=== PATIENT | male | born 1990 | race Caucasian/White ===

== ENCOUNTER → 2016-11-27 | Outpatient (CLI) | payer OTHER ==
[2016-11-27 15:12] LABS: Basophils % (A) 0 %; CH 31.6; CHCM 33.1; Eosinophils # (A) 0.3 k/uL (0-0.7); Eosinophils % (A) 3 %; HCT 44.9 % (39.0-53.0); HDW 2.84; HGB 14.5 gm/dL (13.0-17.5); Luc # (Auto) 0.21; Luc % (Auto) 2; Lymphocytes # (A) 2.2 k/uL (1.0-4.8); Lymphocytes % (A) 22 %; MCH 31.1 pg (25.0-35.0); MCHC 32.3 g/dL (31.0-37.0); MCV 96.2 fL (80.0-100.0); Mean Platelet Volume 9.6; Monocytes # (A) 0.4 k/uL (0-1.0); Monocytes % (A) 4 %; Neutrophils % (A) 69 %; RBC 4.67 m/uL (4.30-5.90); RDW 13.3 % (11.5-15.5); WBC (Perox) 9.74
[2016-11-27 15:27] LABS: Bilirubin, Delta 0.3 mg/dL (0.0-0.2); Total Bilirubin 0.4 mg/dL (0.2-1.3); Total Protein 7.3 g/dL (6.3-8.2)
[2016-11-30 16:16] LABS: HCV Qualitative Result DETECTED (Not detected)
== END | disposition home or self-care (01) ==
LOC: LABWHC1 14:39
PROVIDERS: ATTEND Physician Assistant
DX: B18.2 Chronic viral hepatitis C (principal)
CPT/HCPCS: 36415; 80076; 85025; 87522; 87902

== ENCOUNTER 2016-12-09 13:10 | Emergency (ER) | payer OTHER ==
--- NOTE | 2016-12-09 13:38 | ED ---
General Adult HPI - General Chief complaint: Psychiatric Symptoms Stated complaint: SUICIDAL, OVERDOSE Time Seen by Provider: 12/09/16 13:25 Source: patient, RN notes reviewed Mode of arrival: EMS Limitations: no limitations - History of Present Illness Initial comments: This is a 26-year-old male who states he has a past medical history of autism and ADHD depression and possibly schizophrenia. Patient states his mother told him he was a real pain in the neck today and that upset him so he started to cut himself because he states when he feels a lot of pain it's snaps a moderately depressed feeling. Patient states took a razor blade just rubbed on his arm he was not trying to kill himself and he is not suicidal at all. Patient states she's also not homicidal. 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 Patient states he has not drank anything today. Patient did state he took his Zyprexa now instead of this evening because he was feeling so upset he thought it might help him. Patient states he was not an attempt to kill himself. She denies any headache patient denies numbness weakness. Patient states he does have superficial abrasion to the left arm but he has had a tetanus shot recently. Patient denies any chest pain difficulty breathing or shortness of breath per patient denies any recent fever chills or cough. Patient denies abdominal pain. - Related Data Home Medications Medication Instructions Recorded Confirmed Amitriptyline HCl [Elavil] 10 mg PO HS 12/09/16 12/09/16 Gabapentin [Neurontin] 400 mg PO TID 12/09/16 12/09/16 OLANZapine [ZyPREXA] 15 mg PO DAILY 12/09/16 12/09/16 buPROPion HCL [Wellbutrin XL] 150 mg PO DAILY 12/09/16 12/09/16 cloNIDine HCL 0.3 mg PO TID 12/09/16 12/09/16 hydrOXYzine PAMOATE [Vistaril] 50 mg PO TID 12/09/16 12/09/16 Allergies Allergy/AdvReac Type Severity Reaction Status Date / Time sulfamethoxazole Allergy Itching Verified 12/09/16 13:38 [From Bactrim] trimethoprim [From Bactrim] Allergy Itching Verified 12/09/16 13:38 fluvoxamine maleate AdvReac Nausea & Verified 12/09/16 13:38 [From Luvox] Vomiting Review of Systems ROS Statement: Those systems with pertinent positive or pertinent negative responses have been documented in the HPI. ROS Other: All systems not noted in ROS Statement are negative. Past Medical History Additional Past Medical History / Comment(s): Schizophrenia, PTSD, generalized anxiety disorder, major depressive disorder with psychosis, ADHD, cutting, hepatitis C History of Any Multi-Drug Resistant Organisms: None Reported Past Surgical History: No Surgical Hx Reported Past Anesthesia/Blood Transfusion Reactions: No Reported Reaction Past Psychological History: ADD/ADHD, Anxiety, Depression, PTSD, Schizophrenia Smoking Status: Current every day smoker Past Alcohol Use History: None Reported Additional Past Alcohol Use History / Comment(s): Patient is a smoker one pack per day for the past 5 years. He states he uses marijuana occasionally. He also uses Vicodin and Percocet which he buys off the street. He denies any IV drug use. He denies history of hepatitis. Past Drug Use History: Marijuana - Past Family History Father Family Medical History: No Reported History Mother Family Medical History: No Reported History Additional Family Medical History / Comment(s): Patient is single and does not have any children. General Exam - General Exam Comments Initial Comments: GENERAL: Patient is well-developed and well-nourished. Patient is nontoxic and well- hydrated and is in no acute distress. ENT: Neck is soft and supple. No significant lymphadenopathy is noted. Oropharynx is clear. Moist mucous membranes. Neck has full range of motion without eliciting any pain. EYES: The sclera were anicteric and conjunctiva were pink and moist. Extraocular movements were intact and pupils were equal round and reactive to light. Eyelids were unremarkable. PULMONARY: Unlabored respirations. Good breath sounds bilaterally. No audible rales rhonchi or wheezing was noted. CARDIOVASCULAR: There is a regular rate and rhythm without any murmurs gallops or rubs. ABDOMEN: Soft and nontender with normal bowel sounds. SKIN: Patient superficial abrasions to the left forearm. NEUROLOGIC: Patient is alert and oriented x3. Cranial nerves II through XII are grossly intact. Motor and sensory are also intact. Normal speech, volume and content. MUSCULOSKELETAL: Normal extremities with adequate strength and full range of motion. No lower extremity swelling or edema. No calf tenderness. LYMPHATICS: No significant lymphadenopathy is noted PSYCHIATRIC: Patient denies any suicidal homicidal ideations. Patient does seem mildly anxious and remains a little bit upset about this morning events Limitations: no limitations Course Vital Signs 12/09/16 13:24 Temperature 97.4 F L Pulse Rate 78 Respiratory 20 Rate Blood Pressure 130/90 O2 Sat by Pulse 97 Oximetry Medical Decision Making - Medical Decision Making [facility] came and saw the patient didn't think he needs to be admitted. I went back and spoke with the patient he continued to state he was ago and hurt himself and had no one attention of hurting himself. He stated he could be safe if he went home. - Lab Data Lab Results 12/09/16 Range/Units 13:48 Urine Opiates Screen Detected H (NotDetected) Ur Oxycodone Screen Not Detected (NotDetected) Urine Methadone Screen Not Detected (NotDetected) Ur Propoxyphene Screen Not Detected (NotDetected) Ur Barbiturates Screen Not Detected (NotDetected) U Tricyclic Antidepress Not Detected (NotDetected) Ur Phencyclidine Scrn Not Detected (NotDetected) Ur Amphetamines Screen Not Detected (NotDetected) U Methamphetamines Scrn Not Detected (NotDetected) U Benzodiazepines Scrn Detected H (NotDetected) Urine Cocaine Screen Not Detected (NotDetected) U Marijuana (THC) Screen Detected H (NotDetected) Disposition Clinical Impression: Adjustment reaction Disposition: HOME SELF-CARE Instructions: Mood Disorders (ED) Additional Instructions: Patient should follow-up at [facility] or his counselor as soon as possible Time of Disposition: 14:57
[2016-12-09 15:19] VITALS: BP 113/57; PULSE 90; RESP 18; TEMP 97.9
== END 2016-12-09 15:18 | disposition home or self-care (01) ==
LOC: EC 13:10
DX: F43.20 Adjustment disorder, unspecified (principal); S40.812A Abrasion of left upper arm, initial encounter; F32.9 Major depressive disorder, single episode, unspecified; F20.9 Schizophrenia, unspecified; F90.9 Attention-deficit hyperactivity disorder, unspecified type; F41.9 Anxiety disorder, unspecified; F17.200 Nicotine dependence, unspecified, uncomplicated; F12.90 Cannabis use, unspecified, uncomplicated; X78.1XXA Intentional self-harm by knife, initial encounter; Z88.2 Allergy status to sulfonamides
CPT/HCPCS: 80306; 82075; 99283

== ENCOUNTER → 2017-01-28 | Outpatient (CLI) | payer OTHER ==
[2017-01-28 17:36] LABS: Bilirubin, Delta 0.3 mg/dL (0.0-0.2); Total Bilirubin 0.8 mg/dL (0.2-1.3); Total Protein 7.9 g/dL (6.3-8.2)
[2017-01-30 07:27] LABS: Hepatits C Virus RNA, Quant 678 IU/mL (<12); LOG HCV IU/mL 2.83 (<1.08)
== END | disposition home or self-care (01) ==
LOC: LABWHC1 17:04
PROVIDERS: ATTEND Physician Assistant
DX: B18.2 Chronic viral hepatitis C (principal)
CPT/HCPCS: 36415; 80076; 87522

== ENCOUNTER 2017-08-07 12:09 | Emergency (ER) | payer OTHER ==
[2017-08-07] MEDS ORDERED: HYDROcodone/APAP 5-325MG 1 EACH TAB PO STA (12:49)
[2017-08-07] MEDS ORDERED: PENICILLIN V POTASSIUM 250 MG TAB PO STA (12:49)
--- NOTE | 2017-08-07 12:50 | ED ---
ENT HPI - General Chief complaint: Dental/Oral Stated complaint: Tooth Ache Time Seen by Provider: 08/07/17 12:32 Source: patient, RN notes reviewed Mode of arrival: ambulatory Limitations: no limitations - History of Present Illness Initial comments: This a 27-year-old male presents emergency Department with complaint of dental pain. Patient states that she was pretty are broken. He states she's never had his wisdom teeth removed. Patient states he is afraid of the dentist when he has not gone. He states over this last week he's had increasing pain denies any fever, chills, headache, dizziness, neck pain, facial swelling. Patient states that he will schedule appointment on Wednesday for the dentist. - Related Data Home Medications Medication Instructions Recorded Confirmed Amitriptyline HCl [Elavil] 10 mg PO HS 12/09/16 02/19/17 Gabapentin [Neurontin] 400 mg PO TID 12/09/16 02/19/17 OLANZapine [ZyPREXA] 15 mg PO DAILY 12/09/16 02/19/17 buPROPion HCL [Wellbutrin XL] 150 mg PO DAILY 12/09/16 02/19/17 cloNIDine HCL 0.3 mg PO TID 12/09/16 02/19/17 hydrOXYzine PAMOATE [Vistaril] 50 mg PO TID 12/09/16 02/19/17 Previous Rx's Medication Instructions Recorded Ibuprofen [Motrin] 600 mg PO Q6HR PRN #20 tab 02/19/17 Penicillin V Potassium [Pen Vee K] 500 mg PO TID #40 tab 02/19/17 Hydrocodone/Acetaminophen [Fisk 1 tab PO Q6HR PRN #20 tab 08/07/17 5-325] Penicillin V Potassium [Pen Vee K] 500 mg PO QID #40 tab 08/07/17 Allergies Allergy/AdvReac Type Severity Reaction Status Date / Time sulfamethoxazole Allergy Itching Verified 08/07/17 12:24 [From Bactrim] tramadol Allergy Unknown Verified 08/07/17 12:24 trimethoprim [From Bactrim] Allergy Itching Verified 08/07/17 12:24 fluvoxamine maleate AdvReac Nausea & Verified 08/07/17 12:24 [From Luvox] Vomiting Review of Systems ROS Statement: Those systems with pertinent positive or pertinent negative responses have been documented in the HPI. ROS Other: All systems not noted in ROS Statement are negative. Past Medical History Additional Past Medical History / Comment(s): Schizophrenia, PTSD, generalized anxiety disorder, major depressive disorder with psychosis, ADHD, cutting, hepatitis C History of Any Multi-Drug Resistant Organisms: None Reported Past Surgical History: No Surgical Hx Reported Past Anesthesia/Blood Transfusion Reactions: No Reported Reaction Past Psychological History: ADD/ADHD, Anxiety, Depression, PTSD, Schizophrenia Smoking Status: Never smoker Past Alcohol Use History: None Reported Past Drug Use History: None Reported - Past Family History Father Family Medical History: No Reported History Mother Family Medical History: No Reported History Additional Family Medical History / Comment(s): Patient is single and does not have any children. General Exam Limitations: no limitations General appearance: alert, in no apparent distress Head exam: Present: atraumatic, normocephalic, normal inspection Eye exam: Present: normal appearance, PERRL, EOMI. Absent: scleral icterus, conjunctival injection, periorbital swelling ENT exam: Present: mucous membranes moist, TM's normal bilaterally, normal external ear exam. Absent: normal oropharynx (Dental fracture 1 and 16 no drainable abscess noted) Neck exam: Present: normal inspection, full ROM. Absent: tenderness, meningismus, lymphadenopathy Respiratory exam: Present: normal lung sounds bilaterally. Absent: respiratory distress, wheezes, rales, rhonchi, stridor Cardiovascular Exam: Present: regular rate, normal rhythm, normal heart sounds. Absent: systolic murmur, diastolic murmur, rubs, gallop, clicks Course Vital Signs 08/07/17 12:18 Temperature 97.4 F L Pulse Rate 107 H Respiratory 20 Rate Blood Pressure 152/90 O2 Sat by Pulse 100 Oximetry Medical Decision Making - Medical Decision Making 27-year-old male presented for dental pain. Patient has a dental fracture. Patient is advised all) started on Pen-Vee K for possible infection and given pain medication. Return parameters were discussed. Disposition Clinical Impression: Toothache, Fracture of tooth Disposition: HOME SELF-CARE Condition: Stable Instructions: Toothache (ED) Additional Instructions: Please return to the Emergency Department if symptoms worsen or any other concerns. Prescriptions: Hydrocodone/Acetaminophen [Fisk 5-325] 1 tab PO Q6HR PRN #20 tab PRN Reason: Pain Penicillin V Potassium [Pen Vee K] 500 mg PO QID #40 tab Referrals: Aj Whitlock MD [Primary Care Provider] - 1-2 days Time of Disposition: 12:50
[2017-08-07 13:38] VITALS: BP 147/91; PULSE 102; RESP 18; TEMP 97.1
== END 2017-08-07 13:38 | disposition home or self-care (01) ==
LOC: EC 12:09
DX: S02.5XXA Fracture of tooth (traumatic), initial encounter for closed fracture (principal); F32.9 Major depressive disorder, single episode, unspecified; F20.9 Schizophrenia, unspecified; F41.1 Generalized anxiety disorder; Z86.19 Personal history of other infectious and parasitic diseases; Z88.2 Allergy status to sulfonamides; Z88.6 Allergy status to analgesic agent; Z88.8 Allergy status to other drugs, medicaments and biological substances; Z79.899 Other long term (current) drug therapy; X58.XXXA Exposure to other specified factors, initial encounter
CPT/HCPCS: 99282

== ENCOUNTER 2018-04-01 18:43 | Emergency (ER) | payer OTHER ==
--- NOTE | 2018-04-01 18:52 | ED ---
General Adult HPI - General Stated complaint: Mental Health Time Seen by Provider: 04/01/18 18:45 Source: RN notes reviewed, old records reviewed - History of Present Illness Initial comments: This is a 27-year-old male to the ER for evaluation presents today for evaluation regarding psychiatric treatment. Patient needs psychiatric evaluation secondary to deteriorating mental health - Related Data Home Medications Medication Instructions Recorded Confirmed Benztropine Mesylate [Cogentin] 2 mg PO BID 04/01/18 04/01/18 diphenhydrAMINE [Benadryl] 50 mg PO HS 04/01/18 04/01/18 fluPHENAZine DECANOATE [Prolixin 25 mg IM Q7D 04/01/18 04/01/18 Decanoate] Allergies Allergy/AdvReac Type Severity Reaction Status Date / Time sulfamethoxazole Allergy Itching Verified 04/01/18 19:18 [From Bactrim] tramadol Allergy Unknown Verified 04/01/18 19:18 trimethoprim [From Bactrim] Allergy Itching Verified 04/01/18 19:18 fluvoxamine maleate AdvReac Nausea & Verified 04/01/18 19:18 [From Luvox] Vomiting Review of Systems ROS Statement: Those systems with pertinent positive or pertinent negative responses have been documented in the HPI. ROS Other: All systems not noted in ROS Statement are negative. Past Medical History Additional Past Medical History / Comment(s): Schizophrenia, PTSD, generalized anxiety disorder, major depressive disorder with psychosis, ADHD, cutting, hepatitis C History of Any Multi-Drug Resistant Organisms: None Reported Past Surgical History: No Surgical Hx Reported Past Anesthesia/Blood Transfusion Reactions: No Reported Reaction Past Psychological History: ADD/ADHD, Anxiety, Depression, PTSD, Schizophrenia Smoking Status: Never smoker Past Alcohol Use History: None Reported Past Drug Use History: None Reported - Past Family History Father Family Medical History: No Reported History Mother Family Medical History: No Reported History Additional Family Medical History / Comment(s): Patient is single and does not have any children. General Exam General appearance: alert, in no apparent distress Head exam: Present: atraumatic, normocephalic, normal inspection Eye exam: Present: normal appearance, PERRL, EOMI. Absent: scleral icterus, conjunctival injection, periorbital swelling ENT exam: Present: normal exam, mucous membranes moist Neck exam: Present: normal inspection. Absent: tenderness, meningismus, lymphadenopathy Respiratory exam: Present: normal lung sounds bilaterally. Absent: respiratory distress, wheezes, rales, rhonchi, stridor Cardiovascular Exam: Present: regular rate, normal rhythm, normal heart sounds. Absent: systolic murmur, diastolic murmur, rubs, gallop, clicks GI/Abdominal exam: Present: soft, normal bowel sounds. Absent: distended, tenderness, guarding, rebound, rigid Extremities exam: Present: normal inspection, full ROM, normal capillary refill. Absent: tenderness, pedal edema, joint swelling, calf tenderness Back exam: Present: normal inspection Neurological exam: Present: alert, oriented X3, CN II-XII intact Psychiatric exam: Present: normal affect, normal mood Skin exam: Present: warm, dry, intact, normal color. Absent: rash Course Vital Signs 04/01/18 18:49 Temperature 98.1 F Pulse Rate 94 Respiratory 16 Rate Blood Pressure 139/79 O2 Sat by Pulse 97 Oximetry - Reevaluation(s) Reevaluation #1: 04/01/18 18:52 Medically clear for psychiatric evaluation Medical Decision Making - Medical Decision Making 27 male the ER for evaluation for psychiatric evaluation. A she was seen and evaluated with psychiatry. Patient can be discharged home - Lab Data Lab Results 04/01/18 Range/Units 19:07 Urine Opiates Screen Not Detected (NotDetected) Ur Oxycodone Screen Not Detected (NotDetected) Urine Methadone Screen Not Detected (NotDetected) Ur Propoxyphene Screen Not Detected (NotDetected) Ur Barbiturates Screen Not Detected (NotDetected) U Tricyclic Antidepress Not Detected (NotDetected) Ur Phencyclidine Scrn Not Detected (NotDetected) Ur Amphetamines Screen Not Detected (NotDetected) U Methamphetamines Scrn Not Detected (NotDetected) U Benzodiazepines Scrn Not Detected (NotDetected) Urine Cocaine Screen Not Detected (NotDetected) U Marijuana (THC) Screen Not Detected (NotDetected) Disposition Clinical Impression: Depression Disposition: HOME SELF-CARE Condition: Fair Instructions: Depression (ED) Is patient prescribed a controlled substance at d/c from ED?: No Referrals: Aj Whitlock MD [Primary Care Provider] - 1-2 days
[2018-04-01 19:45] LABS: Amphetamine Screen,Urine Not Detected (NotDetected); Barbiturate Screen,Urine Not Detected (NotDetected); Benzodiazepines Screen,Urine Not Detected (NotDetected); Cocaine Screen,Urine Not Detected (NotDetected); Methadone Screen, Urine Not Detected (NotDetected); Opiate Screen,Urine Not Detected (NotDetected); Oxycodone Screen, Urine Not Detected (NotDetected); Phencyclidine Screen,Urine Not Detected (NotDetected); Tricyclic Antidepressant,Urine Not Detected (NotDetected); Urn Cannabinoid Scrn Not Detected (NotDetected)
[2018-04-01 20:25] VITALS: BP 129/78; PULSE 80; RESP 18; TEMP 97.5
== END 2018-04-01 20:25 | disposition home or self-care (01) ==
LOC: EC 18:43
DX: F32.9 Major depressive disorder, single episode, unspecified (principal); F20.9 Schizophrenia, unspecified; F43.10 Post-traumatic stress disorder, unspecified; F41.9 Anxiety disorder, unspecified; F90.9 Attention-deficit hyperactivity disorder, unspecified type; Z86.19 Personal history of other infectious and parasitic diseases; Z79.899 Other long term (current) drug therapy; Z88.2 Allergy status to sulfonamides; Z88.6 Allergy status to analgesic agent; Z88.8 Allergy status to other drugs, medicaments and biological substances
CPT/HCPCS: 80306; 82075; 99284

== ENCOUNTER 2018-06-21 14:34 | Emergency (ER) | payer OTHER ==
[2018-06-21 15:18] VITALS: BP 138/100; RESP 20; TEMP 98.3
[2018-06-21] MEDS ORDERED: BENZTROPINE MESYLATE 1 MG TAB PO STA (15:39)
--- NOTE | 2018-06-21 15:44 | ED ---
Recheck HPI - General Chief Complaint: Recheck/Abnormal Lab/Rx Stated Complaint: medication side effect Time Seen by Provider: 06/21/18 15:23 Source: patient, RN notes reviewed Mode of arrival: ambulatory Limitations: no limitations - History of Present Illness Initial Comments: This is a 28-year-old male who presents to the emergency department with chief complaint of medication side effect. Patient states that since March he has been on Prolixin for schizophrenia. He states that at first he was getting injections every one week and now he is getting them every 2 weeks. He states that at the time he was also started on Cogentin 2 mg daily to help with side effects of Prolixin. He states that he began having blurred vision so they weaned him down to 1 mg. At 1 mg patient was no longer having side effects. He states that one week ago he was completely weaned off. He states that over this past week the side effects of Prolixin have worsened. He reports restless legs and a "fluttery butterfly feeling" in his chest. Denies chest pain or shortness of breath. Denies fevers or chills, abdominal pain, nausea or vomiting, numbness or tingling. She is seen by Dr. Goss at [facility]. - Related Data Home Medications Medication Instructions Recorded Confirmed Benztropine Mesylate [Cogentin] 2 mg PO BID 04/01/18 04/01/18 diphenhydrAMINE [Benadryl] 50 mg PO HS 04/01/18 04/01/18 fluPHENAZine DECANOATE [Prolixin 25 mg IM Q7D 04/01/18 04/01/18 Decanoate] Previous Rx's Medication Instructions Recorded Benztropine Mesylate [Cogentin] 1 mg PO BID #14 tablet 06/21/18 Allergies Allergy/AdvReac Type Severity Reaction Status Date / Time sulfamethoxazole Allergy Itching Verified 04/01/18 19:18 [From Bactrim] tramadol Allergy Unknown Verified 04/01/18 19:18 trimethoprim [From Bactrim] Allergy Itching Verified 04/01/18 19:18 fluvoxamine maleate AdvReac Nausea & Verified 04/01/18 19:18 [From Luvox] Vomiting Review of Systems ROS Statement: Those systems with pertinent positive or pertinent negative responses have been documented in the HPI. ROS Other: All systems not noted in ROS Statement are negative. Past Medical History Additional Past Medical History / Comment(s): Schizophrenia, PTSD, generalized anxiety disorder, major depressive disorder with psychosis, ADHD, cutting, hepatitis C History of Any Multi-Drug Resistant Organisms: None Reported Past Surgical History: No Surgical Hx Reported Past Anesthesia/Blood Transfusion Reactions: No Reported Reaction Past Psychological History: ADD/ADHD, Anxiety, Depression, PTSD, Schizophrenia Smoking Status: Current every day smoker Past Alcohol Use History: None Reported Past Drug Use History: None Reported - Past Family History Father Family Medical History: No Reported History Mother Family Medical History: No Reported History Additional Family Medical History / Comment(s): Patient is single and does not have any children. General Exam - General Exam Comments Initial Comments: General: Awake and alert, well-developed; in no apparent distress. HEENT: Head atraumatic, normocephalic. Pupils are equal, round and reactive to light. Extraocular movements intact. Oropharynx moist without erythema or exudate. Neck: Supple. Normal ROM. Cardiovascular: Regular rate and rhythm. No murmurs, rubs or gallops. Chest symmetrical. Respiratory: Lungs clear to auscultation bilaterally. No wheezes, rales or rhonchi. Normal respiratory effort with no use of accessory muscles. Musculoskeletal: Normal ROM, no tenderness bilateral upper and lower extremities. Ambulating normally. Skin: [place], warm and dry without rashes or lesions. Neurological: Alert and oriented x3. CN II-XII grossly intact. Speech is fluent and answers are appropriate. No focal neuro deficits. Psychiatric: Patient is jittery and anxious. Limitations: no limitations Course Vital Signs 06/21/18 15:13 Temperature 98.3 F Pulse Rate 90 Respiratory 20 Rate Blood Pressure 138/100 O2 Sat by Pulse 99 Oximetry Medical Decision Making - Medical Decision Making This is a 28-year-old male who presents to the emergency department with chief complaint of medication side effect. Patient was taking Cogentin to help with side effects for the Prolixin that he is on for schizophrenia. Patient has been weaned off the Cogentin one week ago. Since that time, patient complains of side effects from the Prolixin. He complains of restless legs and a jittery feeling in his chest. Denies chest pain or shortness of breath. Denies fevers or chills. Case was discussed with attending physician, Dr. Dos Santos. Recommends prescription for Cogentin until patient is able to follow-up with his psychiatrist next Wednesday. Patient will be provided with a prescription for Cogentin 1 mg BID. He is to follow up as scheduled. Vitals are stable and patient is in no acute distress. He will be discharged home at this time. He is in agreement with plan and voices understanding. All questions answered. - EKG Data EKG Comments: 15:37:39. Normal sinus rhythm. Normal ECG. Ventricular rate 86 bpm, [place] interval 142, QRS duration 94, QT/QTC 376/449 Disposition Clinical Impression: Medication side effect Disposition: HOME SELF-CARE Condition: Good Instructions: Adverse Drug Reaction (ED) Additional Instructions: As discussed, please follow-up with your psychiatrist next Wednesday as scheduled. Please take medications as prescribed. Please follow up with primary care provider within 1-2 days. Return to emergency department if symptoms should worsen or any concerns arise. Prescriptions: Benztropine Mesylate [Cogentin] 1 mg PO BID #14 tablet Is patient prescribed a controlled substance at d/c from ED?: No Referrals: Aj Whitlock MD [Primary Care Provider] - 1-2 days Time of Disposition: 15:47
[2018-06-21 15:47] VITALS: PULSE 92
== END 2018-06-21 15:52 | disposition home or self-care (01) ==
LOC: EC 14:34
DX: H53.8 Other visual disturbances (principal); T43.3X5A Adverse effect of phenothiazine antipsychotics and neuroleptics, initial encounter; G25.81 Restless legs syndrome; F20.9 Schizophrenia, unspecified; F17.200 Nicotine dependence, unspecified, uncomplicated; Z79.899 Other long term (current) drug therapy; Z88.2 Allergy status to sulfonamides; Z88.6 Allergy status to analgesic agent; Z88.8 Allergy status to other drugs, medicaments and biological substances
CPT/HCPCS: 93005; 99283

== ENCOUNTER 2018-09-13 09:10 | Emergency (ER) | payer OTHER ==
[2018-09-13 09:14] VITALS: RESP 18
--- NOTE | 2018-09-13 09:29 | ED ---
General Adult HPI - General Chief complaint: Recheck/Abnormal Lab/Rx Stated complaint: poss allergic reaction Time Seen by Provider: 09/13/18 09:20 Source: patient, RN notes reviewed, old records reviewed Mode of arrival: ambulatory Limitations: no limitations - History of Present Illness Initial comments: Patient is a 28-year-old male with significant past medical history for schizophrenia, presented to the emergency room today with a chief complaint of a possible reaction to his medications. Patient does admit that he gets a Prolixin injection every 2 weeks. Patient states that he was on Cogentin in the past. He states that he went to try to get off this medication. He states that previous and when he stops medication began having shaking and some "jitterness". Patient states that he last took Cogentin 2 weeks ago. He states that his last injection was approximately one week ago of the Prolixin. Patient states began feeling shaky last night when he was trying to sleep. He denies any other complaints or any other symptoms. He states this is consistent with symptoms that he had a the past when he stopped his Cogentin. Patient denies any recent fever, chills, shortness of breath, chest pain, back pain, abdominal pain, nausea or vomiting, numbness or tingling, headaches or visual changes, or any other complaints. - Related Data Home Medications Medication Instructions Recorded Confirmed diphenhydrAMINE [Benadryl] 50 mg PO HS 04/01/18 09/13/18 fluPHENAZine DECANOATE [Prolixin 50 mg IM Q14D 04/01/18 09/13/18 Decanoate] Desvenlafaxine [Pristiq ER] 100 mg PO DAILY 09/13/18 09/13/18 Propranolol HCl 60 mg PO DAILY 09/13/18 09/13/18 Previous Rx's Medication Instructions Recorded Benztropine Mesylate [Cogentin] 2 mg PO BID #18 tablet 09/13/18 Allergies Allergy/AdvReac Type Severity Reaction Status Date / Time sulfamethoxazole Allergy Itching Verified 09/13/18 09:36 [From Bactrim] tramadol Allergy Unknown Verified 09/13/18 09:36 trimethoprim [From Bactrim] Allergy Itching Verified 09/13/18 09:36 fluvoxamine maleate AdvReac Nausea & Verified 09/13/18 09:36 [From Luvox] Vomiting Review of Systems ROS Statement: Those systems with pertinent positive or pertinent negative responses have been documented in the HPI. ROS Other: All systems not noted in ROS Statement are negative. Past Medical History Additional Past Medical History / Comment(s): Schizophrenia, PTSD, generalized anxiety disorder, major depressive disorder with psychosis, ADHD, cutting, hepatitis C History of Any Multi-Drug Resistant Organisms: None Reported Past Surgical History: No Surgical Hx Reported Past Anesthesia/Blood Transfusion Reactions: No Reported Reaction Past Psychological History: ADD/ADHD, Anxiety, Depression, PTSD, Schizophrenia Smoking Status: Current every day smoker Past Alcohol Use History: None Reported Past Drug Use History: None Reported - Past Family History Father Family Medical History: No Reported History Mother Family Medical History: No Reported History Additional Family Medical History / Comment(s): Patient is single and does not have any children. General Exam - General Exam Comments Initial Comments: General: The patient is awake and alert, in no distress, and does not appear acutely ill. Eye: Pupils are equal, round and reactive to light. Extra-ocular movements are intact. No nystagmus. There is normal conjunctiva bilaterally. No signs of icterus. Ears, nose, mouth and throat: There are moist mucous membranes and no oral lesions. Neck: The neck is supple, there is no tenderness or JVD. Cardiovascular: There is a regular rate and rhythm. No murmur, rub or gallop is appreciated. Respiratory: Lungs are clear to auscultation, respirations are non-labored, breath sounds are equal. No wheezes, stridor, rales, or rhonchi. Musculoskeletal: Normal ROM, no tenderness. Sensation intact. Strength 5/5. Pulses equal bilaterally 2+. Neurological: A&O x 3. CN II-XII intact, There are no obvious motor or sensory deficits. Coordination appears grossly intact. Speech is normal. Skin: Skin is warm and dry and no rashes or lesions are noted. Psychiatric: Cooperative, appropriate mood & affect, normal judgment. Limitations: no limitations Course Vital Signs 09/13/18 09:11 Temperature 97.7 F Pulse Rate 116 H Respiratory 18 Rate Blood Pressure 135/80 O2 Sat by Pulse 100 Oximetry EKG Findings - EKG Comments: EKG Findings:: EKG performed at 0933: Shows sinus tachycardia 102 bpm. LA interval is 122. QRS 98 per QT/QTC 346/450. No acute ischemic changes. Medical Decision Making - Medical Decision Making Results were discussed with the patient. Patient at this time is resting comfortably. He states he does feel a little shaky. She states that this has happened to him before when he stopped his Cogentin. He states he does have an appointment next week with [facility]. Patient has no other complaints.EKG performed at shows no acute abnormalities. Patient will be given a week's prescription for his Cogentin he states he takes 2 mg twice a day. Patient advised following up return if symptoms increase worsen. States understanding and is in agreement with this plan. Disposition Clinical Impression: Tremor Disposition: HOME SELF-CARE Condition: Good Instructions: Tremors (ED) Additional Instructions: Please follow-up with community mental health as discussed and use medication as prescribed. Please return here to emergency room if any symptoms increase or worsen. Prescriptions: Benztropine Mesylate [Cogentin] 2 mg PO BID #18 tablet Is patient prescribed a controlled substance at d/c from ED?: No Referrals: Aj Whitlock MD [Primary Care Provider] - 1-2 days Time of Disposition: 10:02
[2018-09-13 10:04] VITALS: BP 142/93; PULSE 96; TEMP 97.3
== END 2018-09-13 10:16 | disposition home or self-care (01) ==
LOC: EC 09:10
DX: R25.1 Tremor, unspecified (principal); F20.9 Schizophrenia, unspecified; F43.10 Post-traumatic stress disorder, unspecified; F41.1 Generalized anxiety disorder; F32.9 Major depressive disorder, single episode, unspecified; F17.200 Nicotine dependence, unspecified, uncomplicated; Z79.899 Other long term (current) drug therapy; Z88.1 Allergy status to other antibiotic agents; Z88.2 Allergy status to sulfonamides; Z88.5 Allergy status to narcotic agent; Z88.8 Allergy status to other drugs, medicaments and biological substances
CPT/HCPCS: 93005; 99284

== ENCOUNTER 2019-08-24 11:51 | Emergency (ER) | payer OTHER ==
[2019-08-24 12:02] VITALS: BP 161/98; PULSE 91; RESP 18; TEMP 98.3
[2019-08-24] MEDS ORDERED: PANTOPRAZOLE 40 MG TABLET PO STA (12:32)
[2019-08-24] MEDS ORDERED: ACET/COD 300 MG/30 MG STARTER PACK 6 TAB BTL PO STA (12:32)
--- NOTE | 2019-08-24 12:37 | ED ---
ENT HPI - General Chief complaint: Dental/Oral Stated complaint: Dental pain/infection Time Seen by Provider: 08/24/19 12:09 Source: patient Mode of arrival: ambulatory Limitations: no limitations - History of Present Illness Initial comments: Patient is a 29-year-old male with history of poor dentition is presenting to the emergency department with a chief complaint of dental pain. Patient reports the pain started 2 days ago when tooth #6 partially fractured due to a cavity and the pain has not resolved since. Patient reports he has been taking i buprofen 803 times a day for the past 2 days with minimal improvement has not developed some abdominal pain. Patient denies any fevers or chills. Patient does report the pain is exacerbated with mastication. Patient denies any right- sided facial swelling, drooling, sore throat or dysphagia. - Related Data Home Medications Medication Instructions Recorded Confirmed diphenhydrAMINE [Benadryl] 50 mg PO HS 04/01/18 09/13/18 fluPHENAZine DECANOATE [Prolixin 50 mg IM Q14D 04/01/18 09/13/18 Decanoate] Desvenlafaxine [Pristiq ER] 100 mg PO DAILY 09/13/18 09/13/18 Propranolol HCl 60 mg PO DAILY 09/13/18 09/13/18 Previous Rx's Medication Instructions Recorded Benztropine Mesylate [Cogentin] 2 mg PO BID #18 tablet 09/13/18 Clindamycin [Cleocin] 150 mg PO Q6H #30 capsule 08/24/19 Allergies Allergy/AdvReac Type Severity Reaction Status Date / Time Penicillins Allergy Rash/Hives Verified 08/24/19 12:02 sulfamethoxazole Allergy Itching Verified 08/24/19 12:02 [From Bactrim] tramadol Allergy Unknown Verified 08/24/19 12:02 trimethoprim [From Bactrim] Allergy Itching Verified 08/24/19 12:02 fluvoxamine maleate AdvReac Nausea & Verified 08/24/19 12:02 [From Luvox] Vomiting Review of Systems ROS Statement: Those systems with pertinent positive or pertinent negative responses have been documented in the HPI. ROS Other: All systems not noted in ROS Statement are negative. Past Medical History Additional Past Medical History / Comment(s): Schizophrenia, PTSD, generalized anxiety disorder, major depressive disorder with psychosis, ADHD, cutting, hepatitis C History of Any Multi-Drug Resistant Organisms: None Reported Past Surgical History: No Surgical Hx Reported Past Anesthesia/Blood Transfusion Reactions: No Reported Reaction Past Psychological History: ADD/ADHD, Anxiety, Depression, PTSD, Schizophrenia Smoking Status: Current every day smoker Past Alcohol Use History: None Reported Past Drug Use History: None Reported - Past Family History Father Family Medical History: No Reported History Mother Family Medical History: No Reported History Additional Family Medical History / Comment(s): Patient is single and does not have any children. General Exam Limitations: no limitations General appearance: alert, in no apparent distress Head exam: Present: atraumatic, normocephalic, normal inspection Eye exam: Present: normal appearance Pupils: Present: normal accommodation ENT exam: Present: normal exam, mucous membranes moist, TM's normal bilaterally, normal external ear exam. Absent: normal oropharynx (poor Dentition with multiple cavities. Partial apical fracture of tooth #6 with very mild erythema of the gumline. No periapical abscess noted. No oral lesions noted.) Neck exam: Present: normal inspection. Absent: tenderness, full ROM, lymphadenopathy Respiratory exam: Present: normal lung sounds bilaterally Cardiovascular Exam: Present: regular rate, normal rhythm, normal heart sounds Extremities exam: Present: normal inspection, full ROM Back exam: Present: normal inspection, full ROM Neurological exam: Present: alert, oriented X3 Psychiatric exam: Present: normal affect, normal mood Skin exam: Present: warm, intact, normal color Course Vital Signs 08/24/19 12:01 Temperature 98.3 F Pulse Rate 91 Respiratory 18 Rate Blood Pressure 161/98 O2 Sat by Pulse 98 Oximetry Medical Decision Making - Medical Decision Making Patient is a 29-year-old male with history of poor dentition is presenting to the emergency department with a chief complaint of dental pain. Patient had fractured tooth #62 days ago and has not developed a lot of pain. Patient does not have any fever or chills or night sweats. Patient does not have any swelling. A physical examination no oral lesions are noted. There is a partial fracture of tooth #6. There is very mild periorbital erythema but no abscesses noted. Patient was offered a dental block and he refused. Patient given clindamycin considering this may be a developing infection around the tooth. Patient given clindamycin and Tylenol 3 starter pack. Patient also given Protonix because he complained of some left upper quadrant abdominal pain after taking a lot of ibuprofen 800. Patient advised to alternate between Tylenol and ibuprofen for pain control. Patient given information regarding free dental clinics. Strict return parameters were thoroughly discussed with patient was understanding and agreeable. Case discussed with physician. Disposition Clinical Impression: Pain, dental, Tooth fracture Disposition: HOME SELF-CARE Condition: Stable Instructions (If sedation given, give patient instructions): Toothache (ED) Additional Instructions: Please follow up with a dentist in the provided free dental clinics. Please see prescribe medication as directed. Please return to emergency department if symptoms worsen. Prescriptions: Clindamycin [Cleocin] 150 mg PO Q6H #30 capsule Is patient prescribed a controlled substance at d/c from ED?: No Referrals: Aj Whitlock MD [Primary Care Provider] - 1-2 days Time of Disposition: 13:09
== END 2019-08-24 13:32 | disposition home or self-care (01) ==
LOC: EC 11:51
DX: S02.5XXA Fracture of tooth (traumatic), initial encounter for closed fracture (principal); R10.12 Left upper quadrant pain; F20.9 Schizophrenia, unspecified; F32.9 Major depressive disorder, single episode, unspecified; B19.20 Unspecified viral hepatitis C without hepatic coma; F17.200 Nicotine dependence, unspecified, uncomplicated; Z79.899 Other long term (current) drug therapy; Z88.0 Allergy status to penicillin; Z88.2 Allergy status to sulfonamides; Z88.6 Allergy status to analgesic agent; Z88.8 Allergy status to other drugs, medicaments and biological substances; Z88.1 Allergy status to other antibiotic agents; X58.XXXA Exposure to other specified factors, initial encounter
CPT/HCPCS: 99282

== ENCOUNTER 2019-12-12 16:24 | Emergency (ER) | payer BC, OTHER ==
[2019-12-12 17:06] VITALS: BP 138/89; PULSE 78; RESP 18; TEMP 97.9
--- NOTE | 2019-12-12 17:48 | XR ---
EXAMINATION TYPE: XR elbow complete LT DATE OF EXAM: 12/12/2019 COMPARISON: NONE HISTORY: Heroin needle in the arm TECHNIQUE: 3 views FINDINGS: I see no fracture nor dislocation. Joint spaces are normal. There is a small linear wire or needle foreign body in the subcutaneous tissues over the anterior lower humerus. This is best seen o n the lateral view. The length is 9 mm. IMPRESSION: Normal elbow joint. Small metallic foreign body consistent with broken needle in the subc utaneous tissues
--- NOTE | 2019-12-12 18:23 | ED ---
General Adult HPI - General Chief complaint: Skin/Abscess/Foreign Body Stated complaint: needle broke off in arm-4 mos ago Time Seen by Provider: 12/12/19 18:01 Source: patient, police Mode of arrival: ambulatory Limitations: no limitations - History of Present Illness Initial comments: Patient is a 29-year-old male presenting to the emergency department with a chief complaint of a foreign body in the skin. Patient present in the ED from alf accompanied by an officer. Patient states that he is an IV drug user and about 2 months ago he was administering meth in his left antecubital region when Pratt needle broke off. Patient states that he was not able to retrieve it. Patient states there is no pain or skin discoloration at this time. Patient does not report any swelling in the region. He does report occasional discomfort but otherwise unremarkable. - Related Data Home Medications Medication Instructions Recorded Confirmed diphenhydrAMINE [Benadryl] 50 mg PO HS 04/01/18 09/13/18 fluPHENAZine DECANOATE [Prolixin 50 mg IM Q14D 04/01/18 09/13/18 Decanoate] Desvenlafaxine [Pristiq ER] 100 mg PO DAILY 09/13/18 09/13/18 Propranolol HCl 60 mg PO DAILY 09/13/18 09/13/18 Previous Rx's Medication Instructions Recorded Benztropine Mesylate [Cogentin] 2 mg PO BID #18 tablet 09/13/18 Clindamycin [Cleocin] 150 mg PO Q6H #30 capsule 08/24/19 Allergies Allergy/AdvReac Type Severity Reaction Status Date / Time Penicillins Allergy Rash/Hives Verified 08/24/19 12:02 sulfamethoxazole Allergy Itching Verified 08/24/19 12:02 [From Bactrim] tramadol Allergy Unknown Verified 08/24/19 12:02 trimethoprim [From Bactrim] Allergy Itching Verified 08/24/19 12:02 fluvoxamine maleate AdvReac Nausea & Verified 08/24/19 12:02 [From Luvox] Vomiting Review of Systems ROS Statement: Those systems with pertinent positive or pertinent negative responses have been documented in the HPI. ROS Other: All systems not noted in ROS Statement are negative. Past Medical History Additional Past Medical History / Comment(s): Schizophrenia, PTSD, generalized anxiety disorder, major depressive disorder with psychosis, ADHD, cutting, hepatitis C History of Any Multi-Drug Resistant Organisms: None Reported Past Surgical History: No Surgical Hx Reported Past Anesthesia/Blood Transfusion Reactions: No Reported Reaction Past Psychological History: ADD/ADHD, Anxiety, Depression, PTSD, Schizophrenia Smoking Status: Current every day smoker Past Alcohol Use History: None Reported Past Drug Use History: None Reported - Past Family History Father Family Medical History: No Reported History Mother Family Medical History: No Reported History Additional Family Medical History / Comment(s): Patient is single and does not have any children. General Exam Limitations: no limitations General appearance: alert, in no apparent distress Head exam: Present: atraumatic, normocephalic, normal inspection Eye exam: Present: normal appearance, PERRL, EOMI Pupils: Present: normal accommodation ENT exam: Present: normal exam, mucous membranes moist Neck exam: Present: normal inspection, full ROM Respiratory exam: Present: normal lung sounds bilaterally Cardiovascular Exam: Present: regular rate, normal rhythm, normal heart sounds Extremities exam: Present: normal inspection (Normal-appearing left upper extremity.), full ROM, normal capillary refill, other (+2 ulnar and radial pulses bilaterally.). Absent: tenderness (Foreign body in the left antecubital region.) Back exam: Present: normal inspection, full ROM Neurological exam: Present: alert, oriented X3 Psychiatric exam: Present: normal affect, normal mood Skin exam: Present: warm, dry, intact, normal color. Absent: rash Course Vital Signs 12/12/19 17:01 Temperature 97.9 F Pulse Rate 78 Respiratory 18 Rate Blood Pressure 138/89 O2 Sat by Pulse 98 Oximetry Medical Decision Making - Medical Decision Making Patient a 29-year-old male presenting to emergency Department with a chief complaint of a skin foreign body. On exam the left antecubital region where the needle broke off does not appear infected, swollen or erythematous. I cannot appreciate any foreign body with palpation in the left antecubital region. X- ray does show a 9 mm foreign body that appears to be needle in the proximal left antecubital region. Patient is not in distress. Patient does not have any discomfort. She is advised to follow-up with surgery regarding potential removal of foreign body. Strict return parameters were thoroughly discussed with patient was understanding and agreeable. Case discussed with physician. Disposition Clinical Impression: Foreign body in skin or subcutaneous tissue Disposition: HOME SELF-CARE Condition: Stable Instructions (If sedation given, give patient instructions): Soft Tissue Foreign Body (ED) Additional Instructions: Please follow up with a vascular surgeon. Return to emergency department if symptoms worsen. Is patient prescribed a controlled substance at d/c from ED?: No Referrals: Aj Whitlock MD [Primary Care Provider] - 1-2 days Kacie Paul DO [STAFF PHYSICIAN] - 1-2 days Time of Disposition: 18:23
== END 2019-12-12 19:41 | disposition home or self-care (01) ==
LOC: EC 16:24
DX: S40.852A Superficial foreign body of left upper arm, initial encounter (principal); F41.9 Anxiety disorder, unspecified; F32.9 Major depressive disorder, single episode, unspecified; F43.10 Post-traumatic stress disorder, unspecified; F20.9 Schizophrenia, unspecified; F17.200 Nicotine dependence, unspecified, uncomplicated; Z79.899 Other long term (current) drug therapy; Z88.0 Allergy status to penicillin; Z88.2 Allergy status to sulfonamides; Z88.5 Allergy status to narcotic agent; Z88.8 Allergy status to other drugs, medicaments and biological substances; W45.8XXA Other foreign body or object entering through skin, initial encounter
CPT/HCPCS: 99283

== ENCOUNTER 2020-02-02 16:16 | Emergency (ER) | payer BC, OTHER ==
[2020-02-02 16:22] VITALS: TEMP 97.8
--- NOTE | 2020-02-02 16:50 | ED ---
Allergic Reaction HPI - General Chief complaint: Allergic Reaction Stated complaint: med reaction Time Seen by Provider: 02/02/20 16:28 Source: patient Mode of arrival: ambulatory Limitations: no limitations - History of Present Illness Initial Comments: Patient is a 29-year-old male presenting to the emergency room with a chief complaint of ALLERGIC reaction. Patient states he received his Priloxin injection last week. Patient states he has developed restless symptoms. Patient reports there is "electricity to malaise". Patient reports she is fe eling slightly jittery. Patient states they weeks ago he was taken off Cogentin which typically helps with his side effects from the Priloxin. Patient reports is scheduled to go back and speak with his psychiatrist regarding a change of medication. Denies any suicidal thoughts or ideation at this moment. Denies any stiffness or parkinsonian-like symptoms. - Related Data Home Medications Medication Instructions Recorded Confirmed diphenhydrAMINE [Benadryl] 50 mg PO HS 04/01/18 09/13/18 fluPHENAZine DECANOATE [Prolixin 50 mg IM Q14D 04/01/18 09/13/18 Decanoate] Desvenlafaxine [Pristiq ER] 100 mg PO DAILY 09/13/18 09/13/18 Propranolol HCl 60 mg PO DAILY 09/13/18 09/13/18 Previous Rx's Medication Instructions Recorded Benztropine Mesylate [Cogentin] 2 mg PO BID #18 tablet 09/13/18 Clindamycin [Cleocin] 150 mg PO Q6H #30 capsule 08/24/19 Allergies Allergy/AdvReac Type Severity Reaction Status Date / Time Penicillins Allergy Rash/Hives Verified 08/24/19 12:02 sulfamethoxazole Allergy Itching Verified 08/24/19 12:02 [From Bactrim] tramadol Allergy Unknown Verified 08/24/19 12:02 trimethoprim [From Bactrim] Allergy Itching Verified 08/24/19 12:02 fluvoxamine maleate AdvReac Nausea & Verified 08/24/19 12:02 [From Luvox] Vomiting gabapentin AdvReac Unknown Verified 02/02/20 16:22 Review of Systems ROS Statement: Those systems with pertinent positive or pertinent negative responses have been documented in the HPI. ROS Other: All systems not noted in ROS Statement are negative. Past Medical History Additional Past Medical History / Comment(s): Schizophrenia, PTSD, generalized anxiety disorder, major depressive disorder with psychosis, ADHD, cutting, hepatitis C History of Any Multi-Drug Resistant Organisms: None Reported Past Surgical History: No Surgical Hx Reported Past Anesthesia/Blood Transfusion Reactions: No Reported Reaction Past Psychological History: ADD/ADHD, Anxiety, Depression, PTSD, Schizophrenia Smoking Status: Current every day smoker Past Alcohol Use History: None Reported Past Drug Use History: None Reported - Past Family History Father Family Medical History: No Reported History Mother Family Medical History: No Reported History Additional Family Medical History / Comment(s): Patient is single and does not have any children. General Exam Limitations: no limitations General appearance: alert, in no apparent distress Head exam: Present: atraumatic, normocephalic, normal inspection Eye exam: Present: normal appearance, PERRL, EOMI Pupils: Present: normal accommodation ENT exam: Present: normal exam Neck exam: Present: normal inspection, full ROM Respiratory exam: Present: normal lung sounds bilaterally Cardiovascular Exam: Present: regular rate, normal rhythm, normal heart sounds Extremities exam: Present: normal inspection, full ROM Back exam: Present: normal inspection, full ROM Neurological exam: Present: alert, oriented X3 Psychiatric exam: Present: normal affect, anxious Skin exam: Present: warm, dry, intact, normal color Course Vital Signs 02/02/20 02/02/20 02/02/20 16:18 17:18 18:10 Temperature 97.8 F 97.8 F Pulse Rate 79 78 Respiratory 16 18 18 Rate Blood Pressure 119/75 111/71 O2 Sat by Pulse 100 100 Oximetry Medical Decision Making - Medical Decision Making Patient is a 9-year-old male presenting to emergency Department with chief complaint of ALLERGIC reaction. On exam patient is rocking back and forth slightly. Dr. Greene was contacted and he suggested the patient be started on Artane 3mg, q3days, in order to counteract the effects of the antipsychotic medication. Patient given a written prescription of the medication. Patient denies suicidal thoughts or ideations. Patient offered psychiatric evaluation, he declined. Return parameters thoroughly discussed with patient was understanding and agreeable. Case discussed with physician. Disposition Clinical Impression: Allergic reaction to drug Disposition: HOME SELF-CARE Condition: Stable Instructions (If sedation given, give patient instructions): General Allergic Reaction (ED) Additional Instructions: Take prescribed medication as directed. Follow with primary care. Return to emergency department if symptoms worsen. Is patient prescribed a controlled substance at d/c from ED?: No Referrals: [facility] [Primary Care Provider] - 1-2 days Time of Disposition: 17:53
[2020-02-02 17:25] VITALS: RESP 18
[2020-02-02 18:11] VITALS: BP 111/71; PULSE 78
== END 2020-02-02 18:10 | disposition home or self-care (01) ==
LOC: EC 16:16
DX: R45.1 Restlessness and agitation (principal); R53.81 Other malaise; T41.3X5A Adverse effect of local anesthetics, initial encounter; F20.9 Schizophrenia, unspecified; F32.9 Major depressive disorder, single episode, unspecified; F41.9 Anxiety disorder, unspecified; F17.200 Nicotine dependence, unspecified, uncomplicated; Z88.0 Allergy status to penicillin; Z88.2 Allergy status to sulfonamides; Z88.5 Allergy status to narcotic agent; Z88.8 Allergy status to other drugs, medicaments and biological substances; Z79.899 Other long term (current) drug therapy; Z53.20 Procedure and treatment not carried out because of patient's decision for unspecified reasons
CPT/HCPCS: 99283

== ENCOUNTER 2020-02-20 15:50 | Emergency (ER) | payer OTHER ==
[2020-02-20 15:56] VITALS: TEMP 98.6
--- NOTE | 2020-02-20 16:19 | ED ---
Psych HPI - General Chief Complaint: Psychiatric Symptoms Stated Complaint: Mental Health Time Seen by Provider: 02/20/20 16:00 Source: patient, RN notes reviewed, old records reviewed Mode of arrival: ambulatory - History of Present Illness Initial Comments: This patient's a 29-year-old male, who presents emergency department today with suicidal thoughts, agitation and occasional manic behavior. Patient reports that he's had worsening agitation and labile moods for the past 2 weeks. He reports that he follows with [facility] and Dr. Lombardi saw him one week ago. Patient states he has not been eating well or sleeping well. He reports that sometimes he wants to cut his arms and has had transient suicidal thoughts. He also reports increased agitation. He states that he isn't having a worsening times since being incarcerated for drug abuse. He is now living in a skilled nursing house. - Related Data Home Medications Medication Instructions Recorded Confirmed fluPHENAZine DECANOATE [Prolixin 12.5 mg IM Q14D 04/01/18 02/20/20 Decanoate] Desvenlafaxine [Pristiq ER] 100 mg PO DAILY 09/13/18 02/20/20 Calcium Carbonate [Tums] 500 - 1,000 mg PO QID PRN 02/20/20 02/20/20 Mirtazapine [Remeron] 30 mg PO HS 02/20/20 02/20/20 Propranolol HCl [Propranolol HCl 120 mg PO DAILY 02/20/20 02/20/20 ER] hydrOXYzine PAMOATE [Vistaril] 25 mg PO TID PRN 02/20/20 02/20/20 Allergies Allergy/AdvReac Type Severity Reaction Status Date / Time Penicillins Allergy Rash/Hives Verified 02/20/20 16:19 sulfamethoxazole Allergy Itching Verified 02/20/20 16:19 [From Bactrim] tramadol Allergy Unknown Verified 02/20/20 16:19 trimethoprim [From Bactrim] Allergy Itching Verified 02/20/20 16:19 fluvoxamine maleate AdvReac Nausea & Verified 02/20/20 16:19 [From Luvox] Vomiting gabapentin AdvReac Addiction Verified 02/20/20 16:19 issues Review of Systems ROS Statement: Those systems with pertinent positive or pertinent negative responses have been documented in the HPI. ROS Other: All systems not noted in ROS Statement are negative. Past Medical History Additional Past Medical History / Comment(s): Schizophrenia, PTSD, generalized anxiety disorder, major depressive disorder with psychosis, ADHD, cutting, hepatitis C History of Any Multi-Drug Resistant Organisms: None Reported Past Surgical History: No Surgical Hx Reported Past Anesthesia/Blood Transfusion Reactions: No Reported Reaction Past Psychological History: ADD/ADHD, Anxiety, Depression, PTSD, Schizophrenia Smoking Status: Current every day smoker Past Alcohol Use History: None Reported Past Drug Use History: None Reported - Past Family History Father Family Medical History: No Reported History Mother Family Medical History: No Reported History Additional Family Medical History / Comment(s): Patient is single and does not have any children. General Exam - General Exam Comments Initial Comments: Pleasant 29-year-old male. No acute distress. Patient appears somewhat anxious. Limitations: no limitations General appearance: alert, in no apparent distress Head exam: Present: atraumatic, normocephalic, normal inspection Eye exam: Present: normal appearance, PERRL, EOMI. Absent: scleral icterus, conjunctival injection, periorbital swelling ENT exam: Present: normal exam, mucous membranes moist Neck exam: Present: normal inspection. Absent: tenderness, meningismus, lymphadenopathy Respiratory exam: Present: normal lung sounds bilaterally. Absent: respiratory distress, wheezes, rales, rhonchi, stridor Cardiovascular Exam: Present: regular rate, normal rhythm, normal heart sounds. Absent: systolic murmur, diastolic murmur, rubs, gallop, clicks GI/Abdominal exam: Present: soft Extremities exam: Present: normal inspection, full ROM, normal capillary refill. Absent: tenderness, pedal edema, joint swelling, calf tenderness Back exam: Present: normal inspection Neurological exam: Present: alert, oriented X3, CN II-XII intact Psychiatric exam: Present: normal affect, normal mood Skin exam: Present: warm, dry, intact, normal color. Absent: rash Course Vital Signs 02/20/20 02/20/20 02/20/20 15:52 15:55 16:55 Temperature 98.6 F Pulse Rate 80 Respiratory 17 18 18 Rate Blood Pressure 144/100 O2 Sat by Pulse 100 Oximetry 02/20/20 02/20/20 17:00 18:30 Temperature Pulse Rate Respiratory 18 18 Rate Blood Pressure O2 Sat by Pulse Oximetry Medical Decision Making - Medical Decision Making 29-year-old male presents emergency department today for labile mood. Initially stated that he was suicidal. Patient is medically clear for EPS evaluation. Patient was evaluated by EPS and determined that he was more anxious and that he was kept into his skilled nursing house. He denied any suicidal ideation to the EPS. Patient's case was discussed Dr. Greene Patient can be discharged home. He agrees to safety plan. Discussed return parameters. - Lab Data Lab Results 02/20/20 Range/Units Unknown Urine Opiates Screen Not Detected (NotDetected) Ur Oxycodone Screen Not Detected (NotDetected) Urine Methadone Screen Not Detected (NotDetected) Ur Propoxyphene Screen Not Detected (NotDetected) Ur Barbiturates Screen Not Detected (NotDetected) U Tricyclic Antidepress Not Detected (NotDetected) Ur Phencyclidine Scrn Not Detected (NotDetected) Ur Amphetamines Screen Not Detected (NotDetected) U Methamphetamines Scrn Not Detected (NotDetected) U Benzodiazepines Scrn Not Detected (NotDetected) Urine Cocaine Screen Not Detected (NotDetected) U Marijuana (THC) Screen Not Detected (NotDetected) Disposition Clinical Impression: Depression, Anxiety Disposition: HOME SELF-CARE Condition: Good Instructions (If sedation given, give patient instructions): Suicide Prevention (ED) Additional Instructions: Patient advised to follow up with [facility]. Return to the ED if any alarming signs or symptoms occur. Is patient prescribed a controlled substance at d/c from ED?: No Referrals: [facility] [Primary Care Provider] - 1-2 days Time of Disposition: 18:36
[2020-02-20 16:47] LABS: Amphetamine Screen,Urine Not Detected (NotDetected); Barbiturate Screen,Urine Not Detected (NotDetected); Benzodiazepines Screen,Urine Not Detected (NotDetected); Cocaine Screen,Urine Not Detected (NotDetected); Methadone Screen, Urine Not Detected (NotDetected); Opiate Screen,Urine Not Detected (NotDetected); Oxycodone Screen, Urine Not Detected (NotDetected); Phencyclidine Screen,Urine Not Detected (NotDetected); Tricyclic Antidepressant,Urine Not Detected (NotDetected); Urn Cannabinoid Scrn Not Detected (NotDetected)
[2020-02-20 17:29] VITALS: RESP 18
[2020-02-20 19:26] VITALS: BP 132/89; PULSE 82
== END 2020-02-20 18:43 | disposition home or self-care (01) ==
LOC: EC 15:50
DX: F32.9 Major depressive disorder, single episode, unspecified (principal); F41.9 Anxiety disorder, unspecified; R45.851 Suicidal ideations; F20.9 Schizophrenia, unspecified; F17.200 Nicotine dependence, unspecified, uncomplicated; Z88.0 Allergy status to penicillin; Z88.2 Allergy status to sulfonamides; Z88.5 Allergy status to narcotic agent; Z88.8 Allergy status to other drugs, medicaments and biological substances; Z79.899 Other long term (current) drug therapy
CPT/HCPCS: 80306; 82075; 99285

== ENCOUNTER 2020-02-21 14:06 | Emergency (ER) | payer OTHER ==
[2020-02-21 14:32] VITALS: BP 138/86; PULSE 84; RESP 18; TEMP 98
[2020-02-21] MEDS ORDERED: LORazepam 1 MG TAB PO STA (15:32)
[2020-02-21 16:17] LABS: Amphetamine Screen,Urine Not Detected (NotDetected); Barbiturate Screen,Urine Not Detected (NotDetected); Benzodiazepines Screen,Urine Not Detected (NotDetected); Cocaine Screen,Urine Not Detected (NotDetected); Methadone Screen, Urine Not Detected (NotDetected); Opiate Screen,Urine Not Detected (NotDetected); Oxycodone Screen, Urine Not Detected (NotDetected); Phencyclidine Screen,Urine Not Detected (NotDetected); Tricyclic Antidepressant,Urine Not Detected (NotDetected); Urn Cannabinoid Scrn Not Detected (NotDetected)
--- NOTE | 2020-02-21 16:57 | ED ---
General Adult HPI - General Chief complaint: Anxiety Stated complaint: Allergic reaction/anxiety Time Seen by Provider: 02/21/20 15:00 Source: patient, RN notes reviewed, old records reviewed Mode of arrival: ambulatory Limitations: no limitations - History of Present Illness Initial comments: 29-year-old male patient psychiatric disturbance ED physician feels jibenery believes that is from his psychiatric medications. Patient denies any suicidal or homicidal ideations however does report that when he gets anxiois amd jittery he sometimes he feels the need to superficially cut himself. Denies any action to hurt himself today. Denies any other physical complaints. Systemic: Pt denies fatigue, fever/chills, rash. Pt denies weakness, night sweats, weight loss. Neuro: Pt denies headache, visual disturbances, syncope or pre-syncope. HEENT: Pt denies ocular discharge or irritation, otalgia, rhinorrhea, pharyngitis or notable lymphadenopathy. Cardiopulmonary: Pt denies chest pain, SOB, heart palpitations, dyspnea on exertion. Abdominal/GI: Pt denies abdominal pain, n/v/d. : Pt denies dysuria, burning w/ urination, frequency/urgency. Denies new onset urinary or bowel incontinence. MSK: Pt denies myalgia, loss of strength or function in extremities. Neuro: Pt denies new onset weakness, paresthesias. - Related Data Home Medications Medication Instructions Recorded Confirmed fluPHENAZine DECANOATE [Prolixin 12.5 mg IM Q14D 04/01/18 02/20/20 Decanoate] Desvenlafaxine [Pristiq ER] 100 mg PO DAILY 09/13/18 02/20/20 Calcium Carbonate [Tums] 500 - 1,000 mg PO QID PRN 02/20/20 02/20/20 Mirtazapine [Remeron] 30 mg PO HS 02/20/20 02/20/20 Propranolol HCl [Propranolol HCl 120 mg PO DAILY 02/20/20 02/20/20 ER] hydrOXYzine PAMOATE [Vistaril] 25 mg PO TID PRN 02/20/20 02/20/20 Allergies Allergy/AdvReac Type Severity Reaction Status Date / Time Penicillins Allergy Rash/Hives Verified 02/20/20 16:19 sulfamethoxazole Allergy Itching Verified 02/20/20 16:19 [From Bactrim] tramadol Allergy Unknown Verified 02/20/20 16:19 trimethoprim [From Bactrim] Allergy Itching Verified 02/20/20 16:19 fluvoxamine maleate AdvReac Nausea & Verified 02/20/20 16:19 [From Luvox] Vomiting gabapentin AdvReac Addiction Verified 02/20/20 16:19 issues Review of Systems ROS Statement: Those systems with pertinent positive or pertinent negative responses have been documented in the HPI. ROS Other: All systems not noted in ROS Statement are negative. Past Medical History Additional Past Medical History / Comment(s): Schizophrenia, PTSD, generalized anxiety disorder, major depressive disorder with psychosis, ADHD, cutting, hepatitis C History of Any Multi-Drug Resistant Organisms: None Reported Past Surgical History: No Surgical Hx Reported Past Anesthesia/Blood Transfusion Reactions: No Reported Reaction Past Psychological History: ADD/ADHD, Anxiety, Depression, PTSD, Schizophrenia Smoking Status: Current every day smoker Past Alcohol Use History: None Reported Past Drug Use History: None Reported - Past Family History Father Family Medical History: No Reported History Mother Family Medical History: No Reported History Additional Family Medical History / Comment(s): Patient is single and does not have any children. General Exam - General Exam Comments Initial Comments: Constitutional: NAD, AOX3, Pt has pleasant affect. HEENT: NC/AT, trachea midline, neck supple, no lymphadenopathy. Posterior pharynx non erythematous, without exudates. External ears appear normal, without discharge. Mucous membranes moist. Eyes PERRLA, EOM intact. There is no scleral icterus. No pallor noted. Cardiopulmonary: RRR, no murmurs, rubs or gallops, no JVD noted. Lungs CTAB in anterior and posterior amado. No peripheral edema. Abdominal exam: Abdomen soft and non-distended. Abdomen non-tender to palpation in all 4 quadrants. Bowel sounds active in LLQ. No hepatosplenomegaly. No ecchymosis Neuro: CN II-XII grossly intact. No nuchal rigidity. No raccon eyes, no sanz sign, no hemotympanum. No cervical spinal tenderness. MSK: Sensation intact in upper and lower extremities. Full active ROM in upper and lower extremities, 5/5 stregnth. Limitations: no limitations Course Vital Signs 02/21/20 14:27 Temperature 98 F Pulse Rate 84 Respiratory 18 Rate Blood Pressure 138/86 O2 Sat by Pulse 99 Oximetry Medical Decision Making - Medical Decision Making 29-year-old male patient presents to ED for evaluation psychiatric. Patient felt and are stable, afebrile. Physical exam dentist acute pathology. Patient dilated by emergency psychiatric services and recommended discharge with outpatient follow-up. Evaluate patient patient seems to deny any suicidal or homicidal ideations. Case discussed with Dr. Ken. - Lab Data Lab Results 02/21/20 Range/Units 15:37 Urine Opiates Screen Not Detected (NotDetected) Ur Oxycodone Screen Not Detected (NotDetected) Urine Methadone Screen Not Detected (NotDetected) Ur Propoxyphene Screen Not Detected (NotDetected) Ur Barbiturates Screen Not Detected (NotDetected) U Tricyclic Antidepress Not Detected (NotDetected) Ur Phencyclidine Scrn Not Detected (NotDetected) Ur Amphetamines Screen Not Detected (NotDetected) U Methamphetamines Scrn Not Detected (NotDetected) U Benzodiazepines Scrn Not Detected (NotDetected) Urine Cocaine Screen Not Detected (NotDetected) U Marijuana (THC) Screen Not Detected (NotDetected) Disposition Clinical Impression: Anxiety Disposition: HOME SELF-CARE Condition: Stable Instructions (If sedation given, give patient instructions): Generalized Anxiety Disorder (ED) Additional Instructions: Follow-up with primary care provider as well as mental health as directed. Return to ER if condition worsens in any way. Is patient prescribed a controlled substance at d/c from ED?: No Referrals: [facility] [Primary Care Provider] - 1-2 days
== END 2020-02-21 17:21 | disposition home or self-care (01) ==
LOC: EC 14:06
DX: F41.9 Anxiety disorder, unspecified (principal); F32.9 Major depressive disorder, single episode, unspecified; F17.200 Nicotine dependence, unspecified, uncomplicated; Z79.899 Other long term (current) drug therapy; Z88.0 Allergy status to penicillin; Z88.1 Allergy status to other antibiotic agents; Z88.2 Allergy status to sulfonamides; Z88.5 Allergy status to narcotic agent; Z88.8 Allergy status to other drugs, medicaments and biological substances
CPT/HCPCS: 80306; 82075; 99284

== ENCOUNTER 2020-07-25 16:36 | Emergency (ER) | payer OTHER ==
[2020-07-25 16:43] VITALS: BP 156/81; PULSE 108; RESP 18; TEMP 98.4
[2020-07-25] MEDS ORDERED: ACET/COD 300 MG/30 MG STARTER PACK 6 TAB BTL PO STA (16:56)
[2020-07-25] MEDS ORDERED: ONDANSETRON 4 MG ODT STARTER PACK 2 TAB BTL PO STA (16:56)
[2020-07-25] MEDS ORDERED: KETOROLAC 15 MG/ML 1 ML VIAL IM STA (16:56)
[2020-07-25] MEDS ORDERED: CLINDAMYCIN 150 MG CAP PO STA (16:58)
--- NOTE | 2020-07-25 17:06 | ED ---
General Adult HPI - General Chief complaint: Dental/Oral Stated complaint: mouth pain Time Seen by Provider: 07/25/20 16:44 Source: patient Mode of arrival: ambulatory Limitations: no limitations - History of Present Illness Initial comments: 30-year-old male presents to the emergency department this evening with complaints of dental pain. States his teeth have been bothering him for the past week, but began experiencing increasing discomfort this morning in the left lower jaw. Patient states he has been taking Motrin and aspirin because of the pain and is now experiencing abdominal discomfort and nausea. Patient states he is unable to follow-up with the local dental clinic due to previous missed appointments. Patient denies any recent rash, fever, chills, cough, shortness of breath, chest pain, abdominal pain, vomiting, diarrhea, constipation, back pain, numbness, tingling, dizziness, weakness, hematuria, dysuria, urinary urgency, urinary frequency, headache, visual changes, or any other complaints. - Related Data Home Medications Medication Instructions Recorded Confirmed fluPHENAZine decanoate [Prolixin 12.5 mg IM Q14D 04/01/18 02/20/20 Decanoate] Desvenlafaxine [Pristiq ER] 100 mg PO DAILY 09/13/18 02/20/20 Calcium Carbonate [Tums] 500 - 1,000 mg PO QID PRN 02/20/20 02/20/20 Mirtazapine [Remeron] 30 mg PO HS 02/20/20 02/20/20 Propranolol HCl [Propranolol HCl 120 mg PO DAILY 02/20/20 02/20/20 ER] hydrOXYzine pamoate [Vistaril] 25 mg PO TID PRN 02/20/20 02/20/20 Previous Rx's Medication Instructions Recorded Clindamycin [Cleocin] 450 mg PO Q6H #120 cap 07/25/20 Ondansetron [Zofran ODT] 4 mg PO Q8HR PRN #10 tab 07/25/20 Allergies Allergy/AdvReac Type Severity Reaction Status Date / Time Penicillins Allergy Rash/Hives Verified 07/25/20 16:43 sulfamethoxazole Allergy Itching Verified 07/25/20 16:43 [From Bactrim] tramadol Allergy Unknown Verified 07/25/20 16:43 trimethoprim [From Bactrim] Allergy Itching Verified 07/25/20 16:43 fluvoxamine maleate AdvReac Nausea & Verified 07/25/20 16:43 [From Luvox] Vomiting gabapentin AdvReac Addiction Verified 07/25/20 16:43 issues Review of Systems ROS Statement: Those systems with pertinent positive or pertinent negative responses have been documented in the HPI. ROS Other: All systems not noted in ROS Statement are negative. Past Medical History Additional Past Medical History / Comment(s): Schizophrenia, PTSD, generalized anxiety disorder, major depressive disorder with psychosis, ADHD, cutting, hep atitis C History of Any Multi-Drug Resistant Organisms: None Reported Past Surgical History: No Surgical Hx Reported Past Anesthesia/Blood Transfusion Reactions: No Reported Reaction Past Psychological History: ADD/ADHD, Anxiety, Depression, PTSD, Schizophrenia Smoking Status: Current every day smoker Past Alcohol Use History: None Reported Past Drug Use History: Marijuana - Past Family History Father Family Medical History: No Reported History Mother Family Medical History: No Reported History Additional Family Medical History / Comment(s): Patient is single and does not have any children. General Exam Limitations: no limitations General appearance: alert, in no apparent distress Expanded Teeth exam: Present: dental caries (multiple), fractured tooth # (5) Neck exam: Present: normal inspection. Absent: tenderness, meningismus, lymphadenopathy Respiratory exam: Present: normal lung sounds bilaterally. Absent: respiratory distress, wheezes, rales, rhonchi, stridor Cardiovascular Exam: Present: regular rate, normal rhythm, normal heart sounds. Absent: systolic murmur, diastolic murmur, rubs, gallop, clicks GI/Abdominal exam: Present: soft, normal bowel sounds. Absent: distended, tenderness, guarding, rebound, rigid Neurological exam: Present: alert, oriented X3, CN II-XII intact Psychiatric exam: Present: normal affect, normal mood Skin exam: Present: warm, dry, intact, normal color. Absent: rash Course Vital Signs 07/25/20 16:40 Temperature 98.4 F Pulse Rate 108 H Respiratory 18 Rate Blood Pressure 156/81 O2 Sat by Pulse 97 Oximetry Medical Decision Making - Medical Decision Making This is an 20-year-old male who presents to the emergency department this evening with complaints of dental pain. Patient has multiple dental caries and overall poor dentition. Localizes most severe pain to the left lower jaw. Patient has been taking Motrin and aspirin at home for pain and has now develope d nausea. Patient was given Zofran, clindamycin, and Toradol prior to discharge. Patient agreeable with this plan of care. Patient was discharged home with prescriptions for Zofran and clindamycin. Also instructed to take Motrin or Tylenol for pain. Patient was instructed to follow-up with primary care physician as needed for recheck. Does report difficulty following up with the local dental clinic due to previously missed appointments therefore dental clinics in [place] and [place] were recommended. Patient instructed to return to the emergency department if he developed any new, worsening, or concerning symptoms. Disposition Clinical Impression: Dental infection Disposition: HOME SELF-CARE Condition: Good Instructions (If sedation given, give patient instructions): Dental Abscess (ED), Toothache (ED) Additional Instructions: Please follow up with the [facility] dental [facility]. [facility] [place] [address]. Phone number for new patients or [phone] for existing patients. [facility]. Must pay for x-rays then services are free. Call for an appoitnment. Take medications as directed. Make arrangements to follow-up with a dentist of your choosing as soon as possible. Return to the emergency department with any new, worsening, or concerning symptoms. Prescriptions: Clindamycin [Cleocin] 450 mg PO Q6H #120 cap Ondansetron [Zofran ODT] 4 mg PO Q8HR PRN #10 tab PRN Reason: Nausea Is patient prescribed a controlled substance at d/c from ED?: No Referrals: [facility] [Primary Care Provider] - 1-2 days Time of Disposition: 17:06
== END 2020-07-25 17:20 | disposition home or self-care (01) ==
LOC: EC 16:36
DX: K04.7 Periapical abscess without sinus (principal); K02.9 Dental caries, unspecified; F41.1 Generalized anxiety disorder; F32.3 Major depressive disorder, single episode, severe with psychotic features; F17.200 Nicotine dependence, unspecified, uncomplicated; Z79.899 Other long term (current) drug therapy; Z88.0 Allergy status to penicillin; Z88.2 Allergy status to sulfonamides; Z88.6 Allergy status to analgesic agent; Z88.8 Allergy status to other drugs, medicaments and biological substances
CPT/HCPCS: 96372; 99282; J1885; S0119

== ENCOUNTER 2020-07-30 19:47 | Emergency (ER) | payer OTHER ==
[2020-07-30 20:08] VITALS: BP 145/75; PULSE 89; RESP 18; TEMP 98.9
[2020-07-30] MEDS ORDERED: HYDROcodone/APAP 5-325MG 1 EACH TAB PO STA (20:19)
[2020-07-30] MEDS ORDERED: cefTRIAXone 1,000 MG VIAL (IM USE) IM STA (20:19)
[2020-07-30] MEDS ORDERED: ACET/COD 300 MG/30 MG STARTER PACK 6 TAB BTL PO STA (20:19)
--- NOTE | 2020-07-30 20:26 | ED ---
ENT HPI - General Stated complaint: [facility]isit Dental Pain Time Seen by Provider: 07/30/20 19:54 Source: patient, RN notes reviewed Mode of arrival: ambulatory Limitations: no limitations - History of Present Illness Initial comments: 30-year-old male presents emergency Department chief complaint of dental pain. Patient's having increasing abdominal pain for a while states from fracture to dental caries. He has an appointment in 2 weeks. Patient states that the pain is improving but states he is out of his pain meds. Patient states that ibuprofen is not helping. He is currently taking clindamycin no fevers or chills. No difficulty swallowing or trismus - Related Data Home Medications Medication Instructions Recorded Confirmed fluPHENAZine decanoate [Prolixin 12.5 mg IM Q14D 04/01/18 02/20/20 Decanoate] Desvenlafaxine [Pristiq ER] 100 mg PO DAILY 09/13/18 02/20/20 Calcium Carbonate [Tums] 500 - 1,000 mg PO QID PRN 02/20/20 02/20/20 Mirtazapine [Remeron] 30 mg PO HS 02/20/20 02/20/20 Propranolol HCl [Propranolol HCl 120 mg PO DAILY 02/20/20 02/20/20 ER] hydrOXYzine pamoate [Vistaril] 25 mg PO TID PRN 02/20/20 02/20/20 Previous Rx's Medication Instructions Recorded Clindamycin [Cleocin] 450 mg PO Q6H #120 cap 07/25/20 Ondansetron [Zofran ODT] 4 mg PO Q8HR PRN #10 tab 07/25/20 Allergies Allergy/AdvReac Type Severity Reaction Status Date / Time Penicillins Allergy Rash/Hives Verified 07/30/20 20:07 sulfamethoxazole Allergy Itching Verified 07/30/20 20:07 [From Bactrim] tramadol Allergy Unknown Verified 07/30/20 20:07 trimethoprim [From Bactrim] Allergy Itching Verified 07/30/20 20:07 fluvoxamine maleate AdvReac Nausea & Verified 07/30/20 20:07 [From Luvox] Vomiting gabapentin AdvReac Addiction Verified 07/30/20 20:07 issues Review of Systems ROS Statement: Those systems with pertinent positive or pertinent negative responses have been documented in the HPI. ROS Other: All systems not noted in ROS Statement are negative. Past Medical History Additional Past Medical History / Comment(s): Schizophrenia, PTSD, generalized anxiety disorder, major depressive disorder with psychosis, ADHD, cutting, hepatitis C History of Any Multi-Drug Resistant Organisms: None Reported Past Surgical History: No Surgical Hx Reported Past Anesthesia/Blood Transfusion Reactions: No Reported Reaction Past Psychological History: ADD/ADHD, Anxiety, Depression, PTSD, Schizophrenia Smoking Status: Current every day smoker Past Alcohol Use History: None Reported Past Drug Use History: Marijuana - Past Family History Father Family Medical History: No Reported History Mother Family Medical History: No Reported History Additional Family Medical History / Comment(s): Patient is single and does not have any children. General Exam Limitations: no limitations General appearance: alert, in no apparent distress Head exam: Present: atraumatic, normocephalic, normal inspection ENT exam: Present: mucous membranes moist. Absent: normal oropharynx (Dental erosion dental caries bottom left hand no drainable abscesses no significant erythema no trismus) Neck exam: Present: normal inspection, full ROM. Absent: tenderness, meningismus, lymphadenopathy Respiratory exam: Present: normal lung sounds bilaterally. Absent: respiratory distress, wheezes, rales, rhonchi, stridor Cardiovascular Exam: Present: regular rate, normal rhythm, normal heart sounds. Absent: systolic murmur, diastolic murmur, rubs, gallop, clicks Course Vital Signs 07/30/20 20:05 Temperature 98.9 F Pulse Rate 89 Respiratory 18 Rate Blood Pressure 145/75 O2 Sat by Pulse 97 Oximetry Medical Decision Making - Medical Decision Making Patient presented for dental pain. Patient has dental pain related for dental fracture, possible underlying infection will be given Rocephin continue clindamycin will follow-up with his dentist appointment return parameters were discussed. Disposition Clinical Impression: Dental infection, Fracture of tooth, Impacted molar Disposition: HOME SELF-CARE Condition: Stable Instructions (If sedation given, give patient instructions): Toothache (ED) Additional Instructions: Please return to the Emergency Department if symptoms worsen or any other concerns. Is patient prescribed a controlled substance at d/c from ED?: No [facility]errals[facility] [[facility] - 1-2 days Time of Disposition: 20:27
== END 2020-07-30 20:36 | disposition home or self-care (01) ==
LOC: EC 19:47
DX: K04.7 Periapical abscess without sinus (principal); K01.1 Impacted teeth; K03.81 Cracked tooth; F41.9 Anxiety disorder, unspecified; F32.9 Major depressive disorder, single episode, unspecified; F43.10 Post-traumatic stress disorder, unspecified; F20.9 Schizophrenia, unspecified; F90.9 Attention-deficit hyperactivity disorder, unspecified type; F17.200 Nicotine dependence, unspecified, uncomplicated; Z79.899 Other long term (current) drug therapy; Z88.0 Allergy status to penicillin; Z88.2 Allergy status to sulfonamides; Z88.5 Allergy status to narcotic agent; Z88.8 Allergy status to other drugs, medicaments and biological substances
CPT/HCPCS: 96372; 99282; J0696

== ENCOUNTER 2020-08-07 15:27 | Emergency (ER) | payer OTHER ==
[2020-08-07 15:51] VITALS: BP 121/64; PULSE 71; RESP 18; TEMP 98.4
[2020-08-07] MEDS ORDERED: ACET/COD 300 MG/30 MG STARTER PACK 6 TAB BTL PO STA (16:10)
[2020-08-07] MEDS ORDERED: PENICILLIN V POTASSIUM 250 MG TAB PO STA (16:11)
[2020-08-07] MEDS ORDERED: KETOROLAC 15 MG/ML 1 ML VIAL IM STA (16:11)
--- NOTE | 2020-08-07 16:16 | ED ---
ENT HPI - General Chief complaint: Dental/Oral Stated complaint: Tooth pain Source: patient Mode of arrival: ambulatory - History of Present Illness Initial comments: Patient is a 30-year-old male who presents emergency room and reported left- sided dental pain. Patient reports that this is his third visit in the past 10 days for similar complaint. He began having left lower dental pain approximately 2 weeks ago. He was seen in our emergency room and started on antibiotics. He states he's been taking Motrin, Aleve and Advil at home however he has now developed some abdominal pain. He has been taking clindamycin however continues to have pain. He is taking the antibiotic is working. He does have an appointment on the with his dentist however is requesting antibiotic change and other pain medication at this time. Patient denies a sensation as there is closing off. No neck pain. No fevers or chills. Denies any nausea or vomiting. Does not get regular dental cleanings. There are no other alleviating, precipitating or modifying factors - Related Data Home Medications Medication Instructions Recorded Confirmed fluPHENAZine decanoate [Prolixin 12.5 mg IM Q14D 04/01/18 02/20/20 Decanoate] Desvenlafaxine [Pristiq ER] 100 mg PO DAILY 09/13/18 02/20/20 Calcium Carbonate [Tums] 500 - 1,000 mg PO QID PRN 02/20/20 02/20/20 Mirtazapine [Remeron] 30 mg PO HS 02/20/20 02/20/20 Propranolol HCl [Propranolol HCl 120 mg PO DAILY 02/20/20 02/20/20 ER] hydrOXYzine pamoate [Vistaril] 25 mg PO TID PRN 02/20/20 02/20/20 Previous Rx's Medication Instructions Recorded Clindamycin [Cleocin] 450 mg PO Q6H #120 cap 07/25/20 Ondansetron [Zofran ODT] 4 mg PO Q8HR PRN #10 tab 07/25/20 Penicillin V Potassium [Pen Vee K] 500 mg PO QID #40 tablet 08/07/20 Allergies Allergy/AdvReac Type Severity Reaction Status Date / Time Penicillins Allergy Rash/Hives Verified 08/07/20 15:51 sulfamethoxazole Allergy Itching Verified 08/07/20 15:51 [From Bactrim] tramadol Allergy Unknown Verified 08/07/20 15:51 trimethoprim [From Bactrim] Allergy Itching Verified 08/07/20 15:51 fluvoxamine maleate AdvReac Nausea & Verified 08/07/20 15:51 [From Luvox] Vomiting gabapentin AdvReac Addiction Verified 08/07/20 15:51 issues Review of Systems ROS Statement: Those systems with pertinent positive or pertinent negative responses have been documented in the HPI. ROS Other: All systems not noted in ROS Statement are negative. Past Medical History Additional Past Medical History / Comment(s): Schizophrenia, PTSD, generalized anxiety disorder, major depressive disorder with psychosis, ADHD, cutting, hepatitis C History of Any Multi-Drug Resistant Organisms: None Reported Past Surgical History: No Surgical Hx Reported Past Anesthesia/Blood Transfusion Reactions: No Reported Reaction Past Psychological History: ADD/ADHD, Anxiety, Depression, PTSD, Schizophrenia Smoking Status: Current every day smoker Past Alcohol Use History: None Reported Past Drug Use History: Marijuana - Past Family History Father Family Medical History: No Reported History Mother Family Medical History: No Reported History Additional Family Medical History / Comment(s): Patient is single and does not have any children. Course Vital Signs 08/07/20 15:48 Temperature 98.4 F Pulse Rate 71 Respiratory 18 Rate Blood Pressure 121/64 O2 Sat by Pulse 98 Oximetry Medical Decision Making - Medical Decision Making Upon arrival the patient is placed in a 31. A thorough history and physical exam was performed. Evaluation does reveal multiple fractured teeth on the left lower jaw, tooth 17-18 and right maxilla, tooth 4. No identifiable abscess she does not demonstrate any signs of Severino angina. He is requesting Tylenol 3 for pain control. Previously was given a starter pack for which he states he is all out of the medications. The patient is reporting to gastritis from NSAIDs I do provide him with a starter pack. I will change the patient from clindamycin to Pen-Vee K. Chart does list that the patient has an ALLERGY to penicillin however she refuses at this is true. He is given dose in the emergency room without reaction. Patient is instructed to take the penicillin as directed. Stop taking the clindamycin. Take the Tylenol as directed. Follow up with his dentist at his scheduled appointment. Return to emergency room for any new or worsening symptoms. Patient agreed to this was discharged home in same condition Disposition Clinical Impression: Dental infection, Fracture of tooth Disposition: HOME SELF-CARE Condition: Stable Instructions (If sedation given, give patient instructions): Toothache (ED) Additional Instructions: Follow-up with your dentist at your scheduled appointment on the . Take the penicillin as directed. Stop taking the clindamycin. Take Tylenol for pain control. Return to the ED for any new or worsening symptoms. Prescriptions: Penicillin V Potassium [Pen Vee K] 500 mg PO QID #40 tablet Is patient prescribed a controlled substance at d/c from ED?: No Referrals: [facility] [Primary Care Provider] - 1-2 days Time of Disposition: 16:15
== END 2020-08-07 16:40 | disposition home or self-care (01) ==
LOC: EC 15:27
DX: K04.7 Periapical abscess without sinus (principal); K03.81 Cracked tooth; K29.60 Other gastritis without bleeding; F90.9 Attention-deficit hyperactivity disorder, unspecified type; F43.10 Post-traumatic stress disorder, unspecified; F41.9 Anxiety disorder, unspecified; F32.9 Major depressive disorder, single episode, unspecified; F20.9 Schizophrenia, unspecified; F17.200 Nicotine dependence, unspecified, uncomplicated; Z88.0 Allergy status to penicillin; Z79.899 Other long term (current) drug therapy; Z88.2 Allergy status to sulfonamides; Z88.6 Allergy status to analgesic agent; Z88.8 Allergy status to other drugs, medicaments and biological substances; Z88.1 Allergy status to other antibiotic agents
CPT/HCPCS: 96372; 99282; J1885

== ENCOUNTER 2020-08-20 17:39 | Emergency (ER) | payer OTHER ==
[2020-08-20 17:51] VITALS: BP 138/84; PULSE 96; RESP 18; TEMP 99.1
[2020-08-20] MEDS ORDERED: KETOROLAC 15 MG/ML 1 ML VIAL IM STA (18:39)
[2020-08-20] MEDS ORDERED: ACET/COD 300 MG/30 MG STARTER PACK 6 TAB BTL PO STA (18:39)
--- NOTE | 2020-08-20 18:41 | ED ---
ENT HPI - General Chief complaint: Dental/Oral Stated complaint: POST ORAL SURGERY ISSUES Time Seen by Provider: 08/20/20 17:56 Source: patient Mode of arrival: ambulatory Limitations: no limitations - History of Present Illness Initial comments: Patient is a 30-year-old male presenting to emergency Department with complaints of left-sided dental pain for the last few days. Patient recently had dental work performed, 5 days ago, removing 3 decayed teeth on the lower left side. Patient states he is doing well, he is currently on penicillin VK for the next 2 weeks. Patient states the last 2 days his pain has increased. He states he did start smoking again which he knows he should not. He states there were stitches in place over the he feels like they had broke open. He denies any fever, chills. He states he did not follow up with his dentist yet. He has no further complaints. Upon arrival to the ER, his vital signs are stable. - Related Data Home Medications Medication Instructions Recorded Confirmed Desvenlafaxine [Pristiq ER] 100 mg PO DAILY 09/13/18 02/20/20 Propranolol HCl [Propranolol HCl 120 mg PO DAILY 02/20/20 02/20/20 ER] Acetaminophen [Tylenol] 500 mg PO Q6H PRN 08/20/20 08/20/20 OLANZapine [ZyPREXA] 20 mg PO HS 08/20/20 08/20/20 hydrOXYzine pamoate [hydrOXYzine 50 mg PO TID PRN 08/20/20 08/20/20 PAMOATE] Previous Rx's Medication Instructions Recorded Penicillin V Potassium [Pen Vee K] 500 mg PO QID #40 tablet 08/07/20 Allergies Allergy/AdvReac Type Severity Reaction Status Date / Time Penicillins Allergy Rash/Hives Verified 08/20/20 18:49 sulfamethoxazole Allergy Itching Verified 08/20/20 18:49 [From Bactrim] tramadol Allergy Unknown Verified 08/20/20 18:49 trimethoprim [From Bactrim] Allergy Itching Verified 08/20/20 18:49 fluvoxamine maleate AdvReac Nausea & Verified 08/20/20 18:49 [From Luvox] Vomiting gabapentin AdvReac Addiction Verified 08/20/20 18:49 issues Review of Systems ROS Statement: Those systems with pertinent positive or pertinent negative responses have been documented in the HPI. ROS Other: All systems not noted in ROS Statement are negative. Past Medical History Additional Past Medical History / Comment(s): Schizophrenia, PTSD, generalized anxiety disorder, major depressive disorder with psychosis, ADHD, cutting, hepatitis C History of Any Multi-Drug Resistant Organisms: None Reported Past Surgical History: No Surgical Hx Reported Past Anesthesia/Blood Transfusion Reactions: No Reported Reaction Past Psychological History: ADD/ADHD, Anxiety, Depression, PTSD, Schizophrenia Smoking Status: Current every day smoker Past Alcohol Use History: None Reported Past Drug Use History: Marijuana - Past Family History Father Family Medical History: No Reported History Mother Family Medical History: No Reported History Additional Family Medical History / Comment(s): Patient is single and does not have any children. General Exam - General Exam Comments Initial Comments: GENERAL: Patient is well-developed and well-nourished. Patient is nontoxic and in no acute distress, very anxious. HEAD: Atraumatic, normocephalic. EYES: Pupils equal round and reactive to light, extraocular movements intact, sclera anicteric, conjunctiva are normal. Eyelids were unremarkable. ENT: TMs normal, nares patent, oropharynx clear without exudates. Moist mucous membranes. Patient has poor dental hygiene, recent dental work performed in the left lower side, this area appears very mildly erythematous but no active drainage. No abscess seen. NECK: Normal range of motion, supple without lymphadenopathy or JVD. LUNGS: Unlabored respirations. Breath sounds clear to auscultation bilaterally and equal. No wheezes rales or rhonchi. HEART: Regular rate and rhythm without murmurs, rubs or gallops. ABDOMEN: Soft, nontender, normoactive bowel sounds. No guarding, no rebound. No masses appreciated. : Deferred MUSCULOSKELETAL: Normal extremities with adequate strength and normal range of motion, no pitting or edema. No clubbing or cyanosis. NEUROLOGICAL: Patient is alert and oriented x 3. Motor and sensory are also intact. Cranial nerves II through XII grossly intact. Symmetrical smile. Normal speech, normal gait. PSYCH: Normal mood, normal affect. SKIN: Warm, Dry, normal turgor, no rashes or lesions noted. Limitations: no limitations Course Vital Signs 08/20/20 17:48 Temperature 99.1 F Pulse Rate 96 Respiratory 18 Rate Blood Pressure 138/84 O2 Sat by Pulse 99 Oximetry Medical Decision Making - Medical Decision Making Patient is a 30-year-old male here for dental pain after having dental work performed 5 days ago. He had 3 teeth removed on the left lower side 5 days ago. The stitches have sent to [facility], he started having severe pain at 2 days ago. He did start smoking a few days ago as well. He is currently on penicillin VK. He said no fevers. Exam reveals poor dental hygiene however the recent dental work area shows no signs of active infection, no abscess. I will give him Toradol today in the ER. I recommend him continuing with penicillin and to follow up with the dentist in the next day or 2. We'll also send him home with a Tylenol 3 starter pack. Patient is agreeable to this plan of care. Return parameters were discussed with the patient he verbalizes understanding. Case discussed Dr. Bourne. Disposition Clinical Impression: Pain, dental Disposition: HOME SELF-CARE Condition: Stable Instructions (If sedation given, give patient instructions): Toothache (ED) Additional Instructions: Please return to the Emergency Department if symptoms worsen or any other concerns. Continue with already prescribed antibiotics. May alternate ibuprofen with Tylenol for better pain relief. No smoking. Follow-up with dentist as discussed in the next 1-3 days. Is patient prescribed a controlled substance at d/c from ED?: No Referrals: [facility] [Primary Care Provider] - 1-2 days
== END 2020-08-20 19:05 | disposition home or self-care (01) ==
LOC: EC 17:39
DX: K08.89 Other specified disorders of teeth and supporting structures (principal); F32.9 Major depressive disorder, single episode, unspecified; F90.9 Attention-deficit hyperactivity disorder, unspecified type; F20.9 Schizophrenia, unspecified; F41.1 Generalized anxiety disorder; Z79.899 Other long term (current) drug therapy; F17.200 Nicotine dependence, unspecified, uncomplicated; Z88.0 Allergy status to penicillin; Z88.2 Allergy status to sulfonamides; Z88.8 Allergy status to other drugs, medicaments and biological substances; Z88.6 Allergy status to analgesic agent
CPT/HCPCS: 99282; 96372; J1885

== ENCOUNTER 2020-09-01 13:18 | Emergency (ER) | payer OTHER ==
[2020-09-01 14:02] VITALS: RESP 18
[2020-09-01] MEDS ORDERED: ACET/COD 300 MG/30 MG STARTER PACK 6 TAB BTL PO STA (14:27)
--- NOTE | 2020-09-01 14:29 | ED ---
General Adult HPI - General Chief complaint: Dental/Oral Stated complaint: dental pain Time Seen by Provider: 09/01/20 14:12 Source: patient, RN notes reviewed, old records reviewed Mode of arrival: ambulatory Limitations: no limitations - History of Present Illness Initial comments: 30-year-old male patient presents to ED for evaluation of dental pain. Patient was that he has a history of dental issues has been seen by a dentist recently last couple weeks had about 30 teeth pulled. Reports that he is due to have the tooth causing discomfort pulled in 4 days. He reports that he finished penicillin VK here 4 days ago. Has not been on any antibiotics since. States that the tooth broke more and is causing him discomfort. Denies any other complaints. Systemic: Pt denies fatigue, fever/chills, rash. Pt denies weakness, night sweats, weight loss. Neuro: Pt denies headache, visual disturbances, syncope or pre-syncope. HEENT: Pt denies ocular discharge or irritation, otalgia, rhinorrhea, pharyngitis or notable lymphadenopathy. Cardiopulmonary: Pt denies chest pain, SOB, heart palpitations, dyspnea on exertion. Abdominal/GI: Pt denies abdominal pain, n/v/d. : Pt denies dysuria, burning w/ urination, frequency/urgency. Denies new onset urinary or bowel incontinence. MSK: Pt denies myalgia, loss of strength or function in extremities. Neuro: Pt denies new onset weakness, paresthesias. - Related Data Home Medications Medication Instructions Recorded Confirmed Desvenlafaxine [Pristiq ER] 100 mg PO DAILY 09/13/18 08/20/20 Propranolol HCl [Propranolol HCl 120 mg PO DAILY 02/20/20 08/20/20 ER] Acetaminophen [Tylenol] 500 mg PO Q6H PRN 08/20/20 08/20/20 OLANZapine [ZyPREXA] 20 mg PO HS 08/20/20 08/20/20 hydrOXYzine pamoate [hydrOXYzine 50 mg PO TID PRN 08/20/20 08/20/20 PAMOATE] Previous Rx's Medication Instructions Recorded Penicillin V Potassium [Pen Vee K] 500 mg PO QID #40 tablet 08/07/20 Albuterol Inhaler [Ventolin Hfa 2 puff INHALATION ONCE PRN #1 09/01/20 Inhaler] inhaler Allergies Allergy/AdvReac Type Severity Reaction Status Date / Time sulfamethoxazole Allergy Itching Verified 08/20/20 18:49 [From Bactrim] tramadol Allergy Unknown Verified 08/20/20 18:49 trimethoprim [From Bactrim] Allergy Itching Verified 08/20/20 18:49 fluvoxamine maleate AdvReac Nausea & Verified 08/20/20 18:49 [From Luvox] Vomiting gabapentin AdvReac Addiction Verified 08/20/20 18:49 issues Review of Systems ROS Statement: Those systems with pertinent positive or pertinent negative responses have been documented in the HPI. ROS Other: All systems not noted in ROS Statement are negative. Past Medical History Additional Past Medical History / Comment(s): Schizophrenia, PTSD, generalized anxiety disorder, major depressive disorder with psychosis, ADHD, cutting, hepatitis C History of Any Multi-Drug Resistant Organisms: None Reported Past Surgical History: No Surgical Hx Reported Past Anesthesia/Blood Transfusion Reactions: No Reported Reaction Past Psychological History: ADD/ADHD, Anxiety, Depression, PTSD, Schizophrenia Smoking Status: Current every day smoker Past Alcohol Use History: None Reported Past Drug Use History: Marijuana - Past Family History Father Family Medical History: No Reported History Mother Family Medical History: No Reported History Additional Family Medical History / Comment(s): Patient is single and does not have any children. General Exam - General Exam Comments Initial Comments: Constitutional: NAD, AOX3, Pt has pleasant affect. HEENT: NC/AT, trachea midline, neck supple, no lymphadenopathy. Posterior pharynx non erythematous, without exudates. External ears appear normal, without discharge. Mucous membranes moist. Eyes PERRLA, EOM intact. There is no scleral icterus. No pallor noted. Cardiopulmonary: RRR, no murmurs, rubs or gallops, no JVD noted. Wheezing noted in anterior posterior lung amado. No peripheral edema. Abdominal exam: Abdomen soft and non-distended. Abdomen non-tender to palpation in all 4 quadrants. Neuro: CN II-XII grossly intact. No nuchal rigidity. MSK: No posterior calf tenderness bilaterally, homans sign negative bilaterally. Posterior tibialis and radial pulse +2 bilaterally. Sensation intact in upper and lower extremities. Full active ROM in upper and lower extremities, 5/5 stregnth. Dental: Broken upper 4th tooth. Mild amount of localized gum erythema. No abscess. Limitations: no limitations Course Vital Signs 09/01/20 09/01/20 14:00 14:47 Temperature 98.8 F 98.0 F Pulse Rate 118 H 87 Respiratory 18 18 Rate Blood Pressure 146/92 128/84 O2 Sat by Pulse 100 99 Oximetry Medical Decision Making - Medical Decision Making 30-year-old male patient was seen for dental pain. Patient has a broken tooth for some mild surrounding gum erythema. Physical exam also didn't display wheezing. Patient reports that he is a heavy smoker reports that he has a baseline cough that is unchanged. Denies any shortness of breath or any chest pain. I offered patient a breathing treatment she is declining offered patient a chest x-ray which he is declining. I recommended discontinuing smoking. I will prescribe him an inhaler. Patient has clindamycin at home he will take this 450 mg 3 times a day until his dentist appointment on 09/03 2D at any worsening symptoms. Case discussed with Dr. Arriola. Disposition Clinical Impression: Pain, dental, Broken tooth Disposition: HOME SELF-CARE Condition: Stable Instructions (If sedation given, give patient instructions): Toothache (ED) Additional Instructions: Follow up with PCP and dentist tomorrow. Take pain medication as needed. Take the antibiotics as directed until you see your dentist on 09/05. Use inhaler as needed. Return to ED with any worsening symptoms. Prescriptions: Albuterol Inhaler [Ventolin Hfa Inhaler] 2 puff INHALATION ONCE PRN #1 inhaler PRN Reason: wheezing Is patient prescribed a controlled substance at d/c from ED?: No Referrals: [facility] [Primary Care Provider] - 1-2 days
[2020-09-01] MEDS ORDERED: KETOROLAC 15 MG/ML 1 ML VIAL IM STA (14:40)
[2020-09-01 14:47] VITALS: BP 128/84; PULSE 87; TEMP 98
== END 2020-09-01 14:49 | disposition home or self-care (01) ==
LOC: EC 13:18
DX: S02.5XXA Fracture of tooth (traumatic), initial encounter for closed fracture (principal); R05 Cough; F90.9 Attention-deficit hyperactivity disorder, unspecified type; F41.9 Anxiety disorder, unspecified; F32.9 Major depressive disorder, single episode, unspecified; F43.10 Post-traumatic stress disorder, unspecified; F20.9 Schizophrenia, unspecified; F17.200 Nicotine dependence, unspecified, uncomplicated; Z79.899 Other long term (current) drug therapy; Z88.2 Allergy status to sulfonamides; Z88.1 Allergy status to other antibiotic agents; Z88.5 Allergy status to narcotic agent; Z88.8 Allergy status to other drugs, medicaments and biological substances; X58.XXXA Exposure to other specified factors, initial encounter
CPT/HCPCS: 99283; 96372; J1885

== ENCOUNTER → 2021-02-25 | Outpatient (CLI) | payer OTHER ==
[2021-02-25 18:57] LABS: Basophils # (A) 0.01 X 10*3/uL (0.00-0.10); Basophils % (A) 0.1 %; Eosinophils # (A) 0.04 X 10*3/uL (0.04-0.35); Eosinophils % (A) 0.3 %; HCT 46.3 % (39.6-50.0); HGB 14.5 g/dL (13.0-17.0); Lymphocytes # (A) 2.41 X 10*3/uL (0.90-5.00); Lymphocytes % (A) 17.2 %; MCH 29.4 pg (27.0-32.0); MCHC 31.3 g/dL (32.0-37.0); MCV 93.7 fL (80.0-97.0); Mean Platelet Volume 12.7 fL (9.5-12.2); Monocytes # (A) 0.63 X 10*3/uL (0.20-1.00); Monocytes % (A) 4.5 %; Neutrophils # (A) 10.87 X 10*3/uL (1.80-7.70); Neutrophils % (A) 77.3 %; Platelet Count 234 X 10*3/uL (140-440); RBC 4.94 X 10*6/uL (4.40-5.60); RDW 15.8 % (11.5-14.5); WBC 14.05 X 10*3/uL (4.50-10.00)
[2021-02-26 00:23] LABS: ALT 97 U/L (10-49); AST 117 U/L (14-35); Albumin/Globulin Ratio 2.68 (1.60-3.17); Alkaline Phosphatase 53 U/L (41-126); Bilirubin, Conjugated <0.20 mg/dL (0.20-0.40); Globulin 1.9 g/dL (1.6-3.3); Total Bilirubin 0.3 mg/dL (0.3-1.2)
[2021-02-26 00:39] LABS: Hepatitis A Antibody IgM Non-Reactive (Non-Reactive); Hepatitis B Core IgM Non-Reactive (Non-Reactive); Hepatitis B Surface Antigen Non-Reactive (Non-Reactive); Hepatitis C IgG Antibody Reactive (Non-Reactive)
[2021-02-26 14:22] LABS: HCV Qualitative Result Not detected (Not detected); HCV Quant Log <1.08 (<1.08); HCV Quantitative Result <12 IU/mL (<12)
== END | disposition home or self-care (01) ==
LOC: LABWHC1 11:17
PROVIDERS: ATTEND Physician Assistant
DX: B18.2 Chronic viral hepatitis C (principal)
CPT/HCPCS: 36415; 80074; 80076; 85025; 87522

== ENCOUNTER 2021-03-09 16:12 | Emergency (ER) | payer OTHER ==
[2021-03-09 16:18] VITALS: TEMP 98.1
[2021-03-09 16:39] VITALS: BP 165/95; PULSE 107; RESP 20
--- NOTE | 2021-03-09 16:41 | ED ---
General Adult HPI - General Chief complaint: Dental/Oral Stated complaint: dental pain Time Seen by Provider: 03/09/21 16:33 Source: patient, RN notes reviewed, old records reviewed Mode of arrival: ambulatory Limitations: no limitations - History of Present Illness Initial comments: 30-year-old male with right lower dental pain for the past several days. He states he was play wrestling with his cousin and did chip a tooth which was previously known to have dental caries. He has a planned extraction for 3 days from now. He is not currently on antibiotics. He's been taking Motrin with minimal improvement. No fever. He states that he's had dental problems for some time and is having multiple teeth extracted including the fractured tooth which is causing pain today. No difficulty swallowing, no difficulty breathing, no fever. - Related Data Home Medications Medication Instructions Recorded Confirmed Desvenlafaxine [Pristiq ER] 100 mg PO DAILY 09/13/18 08/20/20 Propranolol HCl [Propranolol HCl 120 mg PO DAILY 02/20/20 08/20/20 ER] Acetaminophen [Tylenol] 500 mg PO Q6H PRN 08/20/20 08/20/20 OLANZapine [ZyPREXA] 20 mg PO HS 08/20/20 08/20/20 hydrOXYzine pamoate [hydrOXYzine 50 mg PO TID PRN 08/20/20 08/20/20 PAMOATE] Previous Rx's Medication Instructions Recorded Penicillin V Potassium [Pen Vee K] 500 mg PO QID #40 tablet 08/07/20 Albuterol Inhaler [Ventolin Hfa 2 puff INHALATION ONCE PRN #1 09/01/20 Inhaler] inhaler HYDROcodone/APAP 5-325MG [[place] 1 tab PO Q6HR PRN #12 tab 03/09/21 5-325] Ibuprofen [Motrin] 600 mg PO Q8HR PRN #24 tab 03/09/21 Penicillin V Potassium [Pen Vee K] 500 mg PO QID 7 Days #28 tablet 03/09/21 Allergies Allergy/AdvReac Type Severity Reaction Status Date / Time sulfamethoxazole Allergy Itching Verified 03/09/21 16:15 [From Bactrim] tramadol Allergy Unknown Verified 03/09/21 16:15 trimethoprim [From Bactrim] Allergy Itching Verified 03/09/21 16:15 fluvoxamine maleate AdvReac Nausea & Verified 03/09/21 16:15 [From Luvox] Vomiting gabapentin AdvReac Addiction Verified 03/09/21 16:15 issues Review of Systems ROS Statement: Those systems with pertinent positive or pertinent negative responses have been documented in the HPI. ROS Other: All systems not noted in ROS Statement are negative. Past Medical History Additional Past Medical History / Comment(s): Schizophrenia, PTSD, generalized anxiety disorder, major depressive disorder with psychosis, ADHD, cutting, hepatitis C History of Any Multi-Drug Resistant Organisms: None Reported Past Surgical History: No Surgical Hx Reported Past Anesthesia/Blood Transfusion Reactions: No Reported Reaction Past Psychological History: ADD/ADHD, Anxiety, Depression, PTSD, Schizophrenia Smoking Status: Current every day smoker Past Alcohol Use History: None Reported Past Drug Use History: Marijuana - Past Family History Father Family Medical History: No Reported History Mother Family Medical History: No Reported History Additional Family Medical History / Comment(s): Patient is single and does not have any children. General Exam Limitations: no limitations General appearance: alert, in no apparent distress Head exam: Present: atraumatic, normocephalic Eye exam: Present: normal appearance, PERRL ENT exam: Present: other (Poor dentition, he has a fractured right lower molar which is tender to percussion.) Respiratory exam: Present: normal lung sounds bilaterally. Absent: respiratory distress, wheezes Cardiovascular Exam: Present: regular rate, normal rhythm GI/Abdominal exam: Present: soft. Absent: distended, tenderness Extremities exam: Present: normal inspection, normal capillary refill. Absent: pedal edema, calf tenderness Course Vital Signs 03/09/21 03/09/21 16:13 16:37 Temperature 98.1 F Pulse Rate 94 107 H Respiratory 16 20 Rate Blood Pressure 174/100 165/95 O2 Sat by Pulse 98 98 Oximetry Medical Decision Making - Medical Decision Making Patient is started on penicillin VK, as well as pain medication. He is instructed to follow-up with his dentist as planned in 3 days. Disposition Clinical Impression: Toothache, Fracture of tooth, Dental caries Disposition: HOME SELF-CARE Condition: Good Instructions (If sedation given, give patient instructions): Toothache (ED) Additional Instructions: Please follow up with your dentist in 3 days as scheduled. Prescriptions: Ibuprofen [Motrin] 600 mg PO Q8HR PRN #24 tab PRN Reason: Pain HYDROcodone/APAP 5-325MG [[place] 5-325] 1 tab PO Q6HR PRN #12 tab PRN Reason: Pain Penicillin V Potassium [Pen Vee K] 500 mg PO QID 7 Days #28 tablet Is patient prescribed a controlled substance at d/c from ED?: No Referrals: [facility] [Primary Care Provider] - 1-2 days Time of Disposition: 16:39
== END 2021-03-09 16:50 | disposition home or self-care (01) ==
LOC: EC 16:12
DX: S02.5XXA Fracture of tooth (traumatic), initial encounter for closed fracture (principal); K02.9 Dental caries, unspecified; F17.200 Nicotine dependence, unspecified, uncomplicated; F12.90 Cannabis use, unspecified, uncomplicated; F41.9 Anxiety disorder, unspecified; F32.9 Major depressive disorder, single episode, unspecified; X58.XXXA Exposure to other specified factors, initial encounter
CPT/HCPCS: 99282

== ENCOUNTER 2021-08-07 15:28 | Emergency (ER) | payer OTHER ==
[2021-08-07 15:36] VITALS: BP 157/110; PULSE 97; RESP 18; TEMP 98.4
[2021-08-07] MEDS ORDERED: PENICILLIN VK 500MG STARTER 4 TAB BTL PO STA (15:54)
[2021-08-07] MEDS ORDERED: ACET/COD 300 MG/30 MG STARTER PACK 6 TAB BTL PO STA (15:54)
--- NOTE | 2021-08-07 15:59 | ED ---
General Adult HPI - General Chief complaint: Dental/Oral Stated complaint: Mouth pain Time Seen by Provider: 08/07/21 15:42 Source: patient, RN notes reviewed Mode of arrival: ambulatory Limitations: no limitations - History of Present Illness Initial comments: 31-year-old male with past psychiatric history presents to the emergency room for dental pain. Patient states he has had poor teeth and dental pain for over a year now. However the other night he felt a worsening pain in one of his teeth do have that after biting. States she cracked the tooth. Patient states that he thinks it is infected. States he does have an appointment coming up with a dentist but cannot get him right away. He denies any difficulty swallowing. Denies fevers or chills.Patient has no other complaints at this time including shortness of breath, chest pain, abdominal pain, nausea or vomiting, headache, or visual changes. - Related Data Home Medications Medication Instructions Recorded Confirmed Desvenlafaxine [Pristiq ER] 100 mg PO DAILY 09/13/18 08/20/20 Propranolol HCl [Propranolol HCl 120 mg PO DAILY 02/20/20 08/20/20 ER] Acetaminophen [Tylenol] 500 mg PO Q6H PRN 08/20/20 08/20/20 OLANZapine [ZyPREXA] 20 mg PO HS 08/20/20 08/20/20 hydrOXYzine pamoate [hydrOXYzine 50 mg PO TID PRN 08/20/20 08/20/20 PAMOATE] Previous Rx's Medication Instructions Recorded Penicillin V Potassium [Pen Vee K] 500 mg PO QID #40 tablet 08/07/20 Albuterol Inhaler [Ventolin Hfa 2 puff INHALATION ONCE PRN #1 09/01/20 Inhaler] inhaler HYDROcodone/APAP 5-325MG [[place] 1 tab PO Q6HR PRN #12 tab 03/09/21 5-325] Ibuprofen [Motrin] 600 mg PO Q8HR PRN #24 tab 03/09/21 Penicillin V Potassium [Pen Vee K] 500 mg PO QID 7 Days #28 tablet 03/09/21 Ibuprofen [Motrin] 600 mg PO Q6HR PRN #20 tab 08/07/21 Penicillin V Potassium [Pen Vee K] 500 mg PO Q6H 10 Days #40 tablet 08/07/21 Allergies Allergy/AdvReac Type Severity Reaction Status Date / Time sulfamethoxazole Allergy Itching Verified 08/07/21 15:36 [From Bactrim] tramadol Allergy Unknown Verified 08/07/21 15:36 trimethoprim [From Bactrim] Allergy Itching Verified 08/07/21 15:36 fluvoxamine maleate AdvReac Nausea & Verified 08/07/21 15:36 [From Luvox] Vomiting gabapentin AdvReac Addiction Verified 08/07/21 15:36 issues Review of Systems ROS Statement: Those systems with pertinent positive or pertinent negative responses have been documented in the HPI. ROS Other: All systems not noted in ROS Statement are negative. Past Medical History Additional Past Medical History / Comment(s): Schizophrenia, PTSD, generalized anxiety disorder, major depressive disorder with psychosis, ADHD, cutting, hepatitis C History of Any Multi-Drug Resistant Organisms: None Reported Past Surgical History: No Surgical Hx Reported Past Anesthesia/Blood Transfusion Reactions: No Reported Reaction Past Psychological History: ADD/ADHD, Anxiety, Depression, PTSD, Schizophrenia Smoking Status: Current every day smoker Past Alcohol Use History: None Reported Past Drug Use History: Marijuana - Past Family History Father Family Medical History: No Reported History Mother Family Medical History: No Reported History Additional Family Medical History / Comment(s): Patient is single and does not have any children. General Exam Limitations: no limitations General appearance: alert, in no apparent distress Head exam: Present: atraumatic Eye exam: Present: normal appearance, PERRL, EOMI. Absent: scleral icterus, conjunctival injection ENT exam: Present: normal exam, mucous membranes moist, TM's normal bilaterally, normal external ear exam. Absent: normal oropharynx (Poor dentition noted. Patient has pain and fracture noted to tooth 13.) Neck exam: Present: normal inspection, full ROM. Absent: tenderness Respiratory exam: Present: normal lung sounds bilaterally. Absent: respiratory distress, wheezes Cardiovascular Exam: Present: regular rate, normal rhythm, normal heart sounds Course Vital Signs 08/07/21 15:31 Temperature 98.4 F Pulse Rate 97 Respiratory 18 Rate Blood Pressure 157/110 O2 Sat by Pulse 98 Oximetry Medical Decision Making - Medical Decision Making Patient has pain noted to tooth 13. There is no abscess. There is no sublingual edema. Oropharynx is patent. Patient was given penicillin and and Tylenol 3. He will continue to follow up with his dentist. He will alternate Motrin and Tylenol 3. Blood pressure slightly hypertensive, patient does have an appointment with his doctor for this and it is also likely be related to pain. He is asymptomatic in regards to his blood pressure. He will follow-up with his doctor and return for any worsening symptoms. Disposition Clinical Impression: Pain, dental Disposition: HOME SELF-CARE Condition: Good Instructions (If sedation given, give patient instructions): Toothache (ED) Additional Instructions: Please alternate Motrin and Tylenol for pain up to every 3 hours. If pain is severe take Tylenol 3. Take antibiotic as directed. Follow-up with dentist. Return to the emergency room for any worsening symptoms. Prescriptions: Ibuprofen [Motrin] 600 mg PO Q6HR PRN #20 tab PRN Reason: Pain Penicillin V Potassium [Pen Vee K] 500 mg PO Q6H 10 Days #40 tablet Is patient prescribed a controlled substance at d/c from ED?: No Referrals: [facility] [Primary Care Provider] - 1-2 days Time of Disposition: 15:58
== END 2021-08-07 16:18 | disposition home or self-care (01) ==
LOC: EC 15:28
DX: K08.89 Other specified disorders of teeth and supporting structures (principal); K03.81 Cracked tooth; F17.200 Nicotine dependence, unspecified, uncomplicated; Z88.2 Allergy status to sulfonamides; Z88.6 Allergy status to analgesic agent; Z88.1 Allergy status to other antibiotic agents; Z88.8 Allergy status to other drugs, medicaments and biological substances
CPT/HCPCS: 99282

== ENCOUNTER 2021-08-09 10:08 | Emergency (ER) | payer OTHER ==
[2021-08-09 10:15] VITALS: BP 145/96; PULSE 96; RESP 18; TEMP 98.5
[2021-08-09] MEDS ORDERED: ACET/COD 300 MG/30 MG STARTER PACK 6 TAB BTL PO STA (10:32)
--- NOTE | 2021-08-09 10:32 | ED ---
General Adult HPI - General Chief complaint: Dental/Oral Stated complaint: Abscess Tooth Time Seen by Provider: 08/09/21 10:16 Source: patient Mode of arrival: ambulatory Limitations: no limitations - History of Present Illness Initial comments: Dictation was produced using [employer] dictation software. please excuse any grammatical, word or spelling errors. Chief Complaint: 31-year-old male presents with worsening dental pain History of Present Illness: Is a 31-year-old value was seen here in emergency department 2 days for dental pain. He was given oral analgesics and oral antibiotics. Patient states that he feels like his dental pain is getting worse. Denies any constitutional symptoms. He localizes the pain to the left m axillary area. He started to notice mild facial swelling. He did negative by [facility] however he did have elevated blood pressure upon that appointment and [facility] refuse provide any service. They told him to follow-up with primary care doctor for blood pressure management. Patient states he had an energy drink just prior to that appointment. The ROS documented in this emergency department record has been reviewed and confirmed by me. Those systems with pertinent positive or negative responses have been documented in the HPI. All other systems are other negative and/or noncontributory. PHYSICAL EXAM: General Impression: Alert and oriented x3, not in acute distress HEENT: Normocephalic atraumatic, extra-ocular movements intact, pupils equal and reactive to light bilaterally, mucous membranes moist, mild left maxillary swelling with tenderness over the area Oral exam: No visualization or palpable gingival erythema or fluctuance, poor dentition Psych: Normal affect and mood ED course: 31-year-old male presents with dental pain. vitals signs upon arrival are within acceptable limits. No drainable abscess noted on physical examination. Patient stressed that he should see a dentist. Patient says antibiotics. He is told to continue taking antibiotics. Patient given starter pack for Tylenol No. 3. - Related Data Home Medications Medication Instructions Recorded Confirmed Desvenlafaxine [Pristiq ER] 100 mg PO DAILY 09/13/18 08/20/20 Propranolol HCl [Propranolol HCl 120 mg PO DAILY 02/20/20 08/20/20 ER] Acetaminophen [Tylenol] 500 mg PO Q6H PRN 08/20/20 08/20/20 OLANZapine [ZyPREXA] 20 mg PO HS 08/20/20 08/20/20 hydrOXYzine pamoate [hydrOXYzine 50 mg PO TID PRN 08/20/20 08/20/20 PAMOATE] Previous Rx's Medication Instructions Recorded Penicillin V Potassium [Pen Vee K] 500 mg PO QID #40 tablet 08/07/20 Albuterol Inhaler [Ventolin Hfa 2 puff INHALATION ONCE PRN #1 09/01/20 Inhaler] inhaler HYDROcodone/APAP 5-325MG [[place] 1 tab PO Q6HR PRN #12 tab 03/09/21 5-325] Ibuprofen [Motrin] 600 mg PO Q8HR PRN #24 tab 03/09/21 Penicillin V Potassium [Pen Vee K] 500 mg PO QID 7 Days #28 tablet 03/09/21 Ibuprofen [Motrin] 600 mg PO Q6HR PRN #20 tab 08/07/21 Penicillin V Potassium [Pen Vee K] 500 mg PO Q6H 10 Days #40 tablet 08/07/21 Allergies Allergy/AdvReac Type Severity Reaction Status Date / Time sulfamethoxazole Allergy Itching Verified 08/09/21 10:12 [From Bactrim] tramadol Allergy Unknown Verified 08/09/21 10:12 trimethoprim [From Bactrim] Allergy Itching Verified 08/09/21 10:12 fluvoxamine maleate AdvReac Nausea & Verified 08/09/21 10:12 [From Luvox] Vomiting gabapentin AdvReac Addiction Verified 08/09/21 10:12 issues Review of Systems ROS Statement: Those systems with pertinent positive or pertinent negative responses have been documented in the HPI. ROS Other: All systems not noted in ROS Statement are negative. Past Medical History Additional Past Medical History / Comment(s): Schizophrenia, PTSD, generalized anxiety disorder, major depressive disorder with psychosis, ADHD, cutting, hepatitis C History of Any Multi-Drug Resistant Organisms: None Reported Past Surgical History: No Surgical Hx Reported Past Anesthesia/Blood Transfusion Reactions: No Reported Reaction Past Psychological History: ADD/ADHD, Anxiety, Depression, PTSD, Schizophrenia Smoking Status: Current every day smoker Past Alcohol Use History: None Reported Past Drug Use History: Marijuana - Past Family History Father Family Medical History: No Reported History Mother Family Medical History: No Reported History Additional Family Medical History / Comment(s): Patient is single and does not have any children. General Exam Limitations: no limitations Course Vital Signs 08/09/21 10:12 Temperature 98.5 F Pulse Rate 96 Respiratory 18 Rate Blood Pressure 145/96 O2 Sat by Pulse 98 Oximetry Disposition Clinical Impression: Pain, dental Disposition: HOME SELF-CARE Condition: Good Instructions (If sedation given, give patient instructions): Dental Abscess (ED) Is patient prescribed a controlled substance at d/c from ED?: No Referrals: [facility] [Primary Care Provider] - 1-2 days
== END 2021-08-09 10:48 | disposition home or self-care (01) ==
LOC: EC 10:08
DX: K08.89 Other specified disorders of teeth and supporting structures (principal); F17.200 Nicotine dependence, unspecified, uncomplicated; Z88.2 Allergy status to sulfonamides; Z88.5 Allergy status to narcotic agent; Z88.8 Allergy status to other drugs, medicaments and biological substances
CPT/HCPCS: 99282

== ENCOUNTER 2021-11-04 10:47 | Emergency (ER) | payer OTHER ==
--- NOTE | 2021-11-04 12:22 | XR ---
Chest x-ray with left RIBS HISTORY: Posterior rib pain, cough Frontal view of the chest, 4 views of the ribs submitted and correlated prior chest x-ray 04/02/2016 Right hemidiaphragm is again elevated. Lung volumes are low. There is no evident pneumothorax or pleu ral effusion. Cardiac mediastinal silhouette is stable. No evident displaced rib fracture. impression: No acute abnormality. Bone scan could be performed for increased sensitivity if occult fr acture is suspected clinically.
[2021-11-04 13:00] VITALS: RESP 16
[2021-11-04] MEDS ORDERED: KETOROLAC 15 MG/ML 1 ML VIAL IM STA (13:32)
--- NOTE | 2021-11-04 13:36 | ED ---
General Adult HPI - General Chief complaint: Upper Respiratory Infection Stated complaint: coughed and hurt ribs Time Seen by Provider: 11/04/21 12:33 Source: patient, RN notes reviewed Mode of arrival: ambulatory Limitations: no limitations - History of Present Illness Initial comments: 31-year-old male presents to the emergency room for left sided rib pain. Patient is tried to quit smoking and has been coughing with this. States he coughed hard earlier today and felt a pop in his posterior ribs. States it hurts to cough. Does not hurt to breathe. Hurts to press on the area. Denies fevers.Patient has no other complaints at this time including shortness of breath, chest pain, abdominal pain, nausea or vomiting, headache, or visual changes. - Related Data Home Medications Medication Instructions Recorded Confirmed Desvenlafaxine [Pristiq ER] 100 mg PO DAILY 09/13/18 11/04/21 Propranolol HCl [Propranolol HCl 120 mg PO DAILY 02/20/20 11/04/21 ER] OLANZapine [ZyPREXA] 20 mg PO HS 08/20/20 11/04/21 Atomoxetine HCl [Strattera] 100 mg PO DAILY 11/04/21 11/04/21 busPIRone HCL 15 mg PO TID 11/04/21 11/04/21 traZODone HCL 50 mg PO HS 11/04/21 11/04/21 Previous Rx's Medication Instructions Recorded Lidocaine 5% Patch [Lidoderm 5% 1 patch TOPICAL DAILY PRN 5 Days 11/04/21 Patch] #10 patch Allergies Allergy/AdvReac Type Severity Reaction Status Date / Time sulfamethoxazole Allergy Itching Verified 11/04/21 13:27 [From Bactrim] tramadol Allergy Unknown Verified 11/04/21 13:27 trimethoprim [From Bactrim] Allergy Itching Verified 11/04/21 13:27 fluvoxamine maleate AdvReac Nausea & Verified 11/04/21 13:27 [From Luvox] Vomiting gabapentin AdvReac Addiction Verified 11/04/21 13:27 issues Review of Systems ROS Statement: Those systems with pertinent positive or pertinent negative responses have been documented in the HPI. ROS Other: All systems not noted in ROS Statement are negative. Past Medical History Additional Past Medical History / Comment(s): Schizophrenia, PTSD, generalized anxiety disorder, major depressive disorder with psychosis, ADHD, cutting, hepatitis C History of Any Multi-Drug Resistant Organisms: None Reported Past Surgical History: No Surgical Hx Reported Past Anesthesia/Blood Transfusion Reactions: No Reported Reaction Past Psychological History: ADD/ADHD, Anxiety, Depression, PTSD, Schizophrenia Smoking Status: Current every day smoker Past Alcohol Use History: None Reported Past Drug Use History: Marijuana - Past Family History Father Family Medical History: No Reported History Mother Family Medical History: No Reported History Additional Family Medical History / Comment(s): Patient is single and does not have any children. General Exam Limitations: no limitations General appearance: alert, in no apparent distress Head exam: Present: atraumatic Eye exam: Present: normal appearance, PERRL, EOMI. Absent: scleral icterus, conjunctival injection ENT exam: Present: normal exam, mucous membranes moist Neck exam: Present: normal inspection, full ROM. Absent: tenderness Respiratory exam: Present: normal lung sounds bilaterally, chest wall tenderness (left sided posterior rib tenderness around rib 8.). Absent: respiratory distress, wheezes Cardiovascular Exam: Present: regular rate, normal rhythm, normal heart sounds GI/Abdominal exam: Present: soft, normal bowel sounds. Absent: distended, tenderness Course Vital Signs 11/04/21 11/04/21 10:56 12:55 Temperature 98.0 F Pulse Rate 92 Respiratory 19 16 Rate Blood Pressure 138/91 O2 Sat by Pulse 97 Oximetry Medical Decision Making - Medical Decision Making Vitals are stable. X-ray of the ribs and chest show no acute abnormality. pt likely has a strain of the intercostal muscles. He was given Toradol and a perception for lidocaine patches. Discussed rib splinting. He will follow-up with his doctor. He'll return here for any worsening symptoms. Disposition Clinical Impression: Rib pain, Intercostal muscle strain Disposition: HOME SELF-CARE Condition: Good Instructions (If sedation given, give patient instructions): Rib Contusion (ED) Additional Instructions: Please take Motrin and Tylenol for pain. Use lidocaine patches. Follow-up with your doctor. Return to the emergency room for any worsening symptoms. Prescriptions: Lidocaine 5% Patch [Lidoderm 5% Patch] 1 patch TOPICAL DAILY PRN 5 Days #10 patch PRN Reason: Pain Is patient prescribed a controlled substance at d/c from ED?: No Referrals: [facility] [Primary Care Provider] - 1-2 days Time of Disposition: 13:34
[2021-11-04 13:57] VITALS: BP 143/93; PULSE 89; TEMP 97.3
== END 2021-11-04 13:58 | disposition home or self-care (01) ==
LOC: EC 10:47
DX: S29.011A Strain of muscle and tendon of front wall of thorax, initial encounter (principal); F17.200 Nicotine dependence, unspecified, uncomplicated; Z88.2 Allergy status to sulfonamides; Z88.8 Allergy status to other drugs, medicaments and biological substances; X58.XXXA Exposure to other specified factors, initial encounter
CPT/HCPCS: 71101; 99283; 96372; J1885

== ENCOUNTER 2022-05-15 18:05 | Inpatient (IN) | payer MEDICAID, OTHER ==
--- NOTE | 2022-05-15 19:30 | ED ---
General Adult HPI - General Chief complaint: Psychiatric Symptoms Stated complaint: mental health Time Seen by Provider: 05/15/22 19:16 Source: patient, police Limitations: no limitations - History of Present Illness Initial comments: Dictation was produced using [employer] dictation software. please excuse any grammatical, word or spelling errors. Chief Complaint: 31-year-old male past nuchal history of schizophrenia but a bilateral enforcement for mental health evaluation History of Present Illness: 31-year-old male he was brought in by law enforcement. There was a petition signed by mother that states that patient has been exhibiting signs of psychotic features. He has been stating that his father is Lucifer and that the [employer] is after him. Patient denies any suicidal or homicidal ideation. He states that under his breath that I should call the [place] immediately. Patient denies any visual auditory hallucinations. He has no medical complaints. Enforcement reports that patient is more cooperative. The ROS documented in this emergency department record has been reviewed and confirmed by me. Those systems with pertinent positive or negative responses have been documented in the HPI. All other systems are other negative and/or noncontributory. PHYSICAL EXAM: General Impression: Alert and oriented x3, not in acute distress HEENT: Normocephalic atraumatic, extra-ocular movements intact, pupils equal and reactive to light bilaterally, mucous membranes moist. Cardiovascular: Heart regular rate and rhythm Chest: Able to complete full sentences, no retractions, no tachypnea Abdomen: abdomen soft, non-tender, non-distended, no organomegaly Musculoskeletal: Pulses present and equal in all extremities, no peripheral edema Motor: no focal deficits noted Neurological: CN II-XII grossly intact, no focal motor or sensory deficits noted Skin: Intact with no visualized rashes Psych: Paranoid behavior, tangential speech ED course: 31-year-old male brought in by law enforcement for mental health evaluation. Patient grid 2 EMR has history of schizophrenia. Patient exhibiting psychotic features. Upon arrival shows heart rate of 114 signs within acceptable limits. Physical exam is benign. Patient has no medical comp laints at this time. - Related Data Home Medications Medication Instructions Recorded Confirmed Desvenlafaxine [Pristiq ER] 100 mg PO DAILY 09/13/18 05/16/22 Propranolol HCl [Propranolol HCl 120 mg PO DAILY 02/20/20 05/16/22 ER] OLANZapine [ZyPREXA] 20 mg PO HS 08/20/20 05/16/22 Atomoxetine HCl [Strattera] 100 mg PO DAILY 11/04/21 05/16/22 busPIRone HCL 15 mg PO TID 11/04/21 05/16/22 traZODone HCL 50 mg PO HS 11/04/21 05/16/22 Calcium Carbonate [Tums] 500 - 1,000 mg PO TID PRN 05/16/22 05/16/22 Multivitamins, Thera [Multivitamin 1 tab PO DAILY 05/16/22 05/16/22 (formulary)] Omeprazole 20 mg PO DAILY 05/16/22 05/16/22 Allergies Allergy/AdvReac Type Severity Reaction Status Date / Time sulfamethoxazole Allergy Itching Verified 05/16/22 14:22 [From Bactrim] tramadol Allergy Unknown Verified 05/16/22 14:22 trimethoprim [From Bactrim] Allergy Itching Verified 05/16/22 14:22 fluvoxamine maleate AdvReac Nausea & Verified 05/16/22 14:22 [From Luvox] Vomiting gabapentin AdvReac Addiction Verified 05/16/22 14:22 issues Review of Systems ROS Statement: Those systems with pertinent positive or pertinent negative responses have been documented in the HPI. ROS Other: All systems not noted in ROS Statement are negative. Past Medical History Additional Past Medical History / Comment(s): Schizophrenia, PTSD, generalized anxiety disorder, major depressive disorder with psychosis, ADHD, cutting, hepatitis C History of Any Multi-Drug Resistant Organisms: None Reported Past Surgical History: No Surgical Hx Reported Past Anesthesia/Blood Transfusion Reactions: No Reported Reaction Past Psychological History: ADD/ADHD, Anxiety, Depression, PTSD, Schizophrenia Smoking Status: Current every day smoker Past Alcohol Use History: None Reported Past Drug Use History: Marijuana - Past Family History Father Family Medical History: No Reported History Mother Family Medical History: No Reported History Additional Family Medical History / Comment(s): Patient is single and does not have any children. General Exam Limitations: no limitations Course Vital Signs 05/15/22 19:05 Temperature 98.5 F Pulse Rate 114 H Respiratory 20 Rate Blood Pressure 159/101 O2 Sat by Pulse 100 Oximetry Medical Decision Making - Medical Decision Making Chart was reviewed at a later date and patient was instructed by EPS and recommended inpatient psychiatric admission - Lab Data Result diagrams: 05/16/22 09:10 05/16/22 16:23 Lab Results 05/16/22 Range/Units 00:05 Coronavirus (PCR) Not Detected (Not Detectd) Disposition Clinical Impression: Psychiatric diagnosis Disposition: ADMITTED IP TO THIS HOSP Condition: Fair
[2022-05-16] MEDS ORDERED: MAGNESIUM HYDROXIDE 2,400 MG/10 ML CUP PO PRN (00:30)
[2022-05-16] MEDS ORDERED: HALOPERIDOL LACTATE 5 MG/ML 1 ML VIAL IM PRN (00:30)
[2022-05-16] MEDS ORDERED: LORazepam 2 MG/ML INJ IM PRN (00:43)
[2022-05-16 09:17] LABS: Amorphous Sediment,Urine Rare /hpf; Appearance,Urine Cloudy (Clear); Bacteria,Urine Rare /hpf; Bilirubin,Urine Negative (Negative); Blood,Urine Moderate (Negative); Color,Urine Yellow; Glucose,Urine (UA) Negative (Negative); Ketones,Urine 2+ (Negative); Leukocyte Esterase,Urine Negative (Negative); Mucus,Urine Many /hpf; Nitrite,Urine Negative (Negative); PH, Urine 5.5 (5.0-8.0); Protein,Urine 1+ (Negative); RBC,Urine 4 /hpf (0-5); Specific Gravity,Urine 1.028 (1.001-1.035); Squamous Epithelial Cell,Urine <1 /hpf (0-4); WBC,Urine 3 /hpf (0-5)
[2022-05-16 09:34] LABS: Amphetamine Screen,Urine Detected (NotDetected); Barbiturate Screen,Urine Not Detected (NotDetected); Benzodiazepines Screen,Urine Detected (NotDetected); Cocaine Screen,Urine Not Detected (NotDetected); Methadone Screen, Urine Not Detected (NotDetected); Opiate Screen,Urine Detected (NotDetected); Oxycodone Screen, Urine Not Detected (NotDetected); Phencyclidine Screen,Urine Not Detected (NotDetected); Tricyclic Antidepressant,Urine Not Detected (NotDetected); Urn Cannabinoid Scrn Detected (NotDetected)
[2022-05-16 09:48] LABS: Anisocytosis Slight; Basophils # (A) 0.1 k/uL (0-0.2); Basophils % (A) 1 %; Eosinophils # (A) 0.1 k/uL (0-0.7); Eosinophils % (A) 1 %; HCT 43.8 % (39.0-53.0); HGB 13.7 gm/dL (13.0-17.5); Hypochromasia Moderate; Lymphocytes # (A) 1.7 k/uL (1.0-4.8); Lymphocytes % (A) 20 %; MCH 27.2 pg (25.0-35.0); MCHC 31.3 g/dL (31.0-37.0); MCV 86.7 fL (80.0-100.0); Mean Platelet Volume 9.9; Monocytes # (A) 0.4 k/uL (0-1.0); Monocytes % (A) 4 %; Neutrophils # (A) 6.3 k/uL (1.3-7.7); Neutrophils % (A) 73 %; Platelet Count 329 k/uL (150-450); RBC 5.05 m/uL (4.30-5.90); RDW 16.6 % (11.5-15.5); WBC 8.6 k/uL (3.8-10.6)
[2022-05-16 09:59] LABS: ALT 20 U/L (4-49); AST 32 U/L (17-59); African American GFR (CKD) >90 (>60 ml/min/1.73 sqM); Alkaline Phosphatase 82 U/L (38-126); Anion Gap 11 mmol/L; Blood Urea Nitrogen 12 mg/dL (9-20); Calcium 10.2 mg/dL (8.4-10.2); Carbon Dioxide 23 mmol/L (22-30); Chloride 106 mmol/L (98-107); Glucose 104 mg/dL (74-99); Non-African American GFR(CKD) >90 (>60 ml/min/1.73 sqM); Sodium 140 mmol/L (137-145); Total Bilirubin 0.6 mg/dL (0.2-1.3); Total Protein 8.1 g/dL (6.3-8.2)
[2022-05-16] MEDS: NICOTINE 14MG/24HR PATCH TRANSDERM SCH (11:22)
[2022-05-16] MEDS: LORazepam 1 MG TAB PO PRN (15:42)
[2022-05-16] MEDS ORDERED: LORazepam 2 MG/ML INJ IM STA (16:02)
[2022-05-16 16:06] LABS: Chol/HDL Ratio 6.65 Ratio; LDL Cholesterol,Calculated 219.7 mg/dL (0.0-131.0)
[2022-05-16 16:47] LABS: African American GFR (CKD) >90 (>60 ml/min/1.73 sqM); Anion Gap 9 mmol/L; Blood Urea Nitrogen 14 mg/dL (9-20); Calcium 9.8 mg/dL (8.4-10.2); Carbon Dioxide 23 mmol/L (22-30); Chloride 105 mmol/L (98-107); Glucose 111 mg/dL (74-99); Non-African American GFR(CKD) >90 (>60 ml/min/1.73 sqM); Potassium 4.6 mmol/L (3.5-5.1); Sodium 137 mmol/L (137-145)
[2022-05-16] MEDS: diazePAM 5 MG TAB PO SCH (18:56)
[2022-05-16] MEDS: traZODone HCL 50 MG TAB PO SCH (20:13)
[2022-05-16] MEDS: OLANZapine 10 MG TAB PO SCH (20:13)
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
[2022-05-17] MEDS: LORazepam 1 MG TAB PO PRN ×4 (04:46→21:59)
[2022-05-17] MEDS: ACETAMINOPHEN TAB 325 MG TAB PO PRN (04:46)
[2022-05-17] MEDS: PROPRANOLOL LA 60 MG CAP.SA.24H PO SCH (05:18)
[2022-05-17] MEDS: MAG HYDROX/AL HYDROX/SIMETH 30 ML CUP PO PRN ×2 (05:27→21:08)
[2022-05-17] MEDS: NICOTINE 14MG/24HR PATCH TRANSDERM SCH (08:07)
[2022-05-17] MEDS: PANTOPRAZOLE 40 MG TABLET PO SCH (08:08)
[2022-05-17] MEDS: diazePAM 5 MG TAB PO SCH ×3 (08:08→20:03)
[2022-05-17] MEDS: MULTIVITAMINS, THERA 1 EACH TAB PO SCH (08:08)
[2022-05-17] MEDS: haloperidoL 5 MG TAB PO PRN ×2 (17:32→22:33)
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
[2022-05-17] MEDS: OLANZapine 10 MG TAB PO SCH (20:03)
[2022-05-17] MEDS: traZODone HCL 50 MG TAB PO SCH (20:03)
[2022-05-17] MEDS: CALCIUM CARBONATE 500 MG CHEWABLE PO PRN (23:14)
[2022-05-18] MEDS: diazePAM 5 MG TAB PO SCH ×4 (02:54→20:33)
[2022-05-18] MEDS: PROPRANOLOL LA 60 MG CAP.SA.24H PO SCH ×2 (07:19→08:17)
[2022-05-18] MEDS: PANTOPRAZOLE 40 MG TABLET PO SCH (08:16)
[2022-05-18] MEDS: NICOTINE 14MG/24HR PATCH TRANSDERM SCH (08:16)
[2022-05-18] MEDS: MULTIVITAMINS, THERA 1 EACH TAB PO SCH (08:17)
[2022-05-18] MEDS ORDERED: OLANZapine 10 MG TAB PO SCH (09:00)
--- NOTE | 2022-05-18 11:00 | P.PN ---
Progress Note - Text Progress Note Date: 05/18/22 Interval History: Patient was seen wandering the hallways and was directable and agreeable to sp eitan with proposal writer in the office. Patient continues to ramble at times and spoke about his parents in a negative manner. He continues to endorse persecutory delusions against his parents believing that they are after him and they are involved in a "evil plot". He claims that he has no thoughts of wanting to harm them or harm himself at this time. He continues be fairly focused on them being "evil". He states that he is having poor energy during the day and was agreeable to have his Zyprexa changed to nighttime. He is not responding to internal stimuli. He claims that he was able to sleep fairly throughout the night. At this time patient denies any suicidal or homicidal ideations, intent or plan. Patient endorses auditory hallucinations. Patient denies any side effects from the medications and has been compliant with meds. Mental Status Exam: General Appearance: Patient appears older than stated age, is balding, dressed in hospital gown. Behavior: Patient is seated without any agitated behavior, less impulsive today. More cooperative Speech: Patient's speech is fluent, nonpressured. Rambles. Mood/Affect: Mood is improving mildly, affect is congruent. Suicidality/Homicidality: Patient denies having any suicidal or homicidal ideation intent or plan. Perceptions: Patient endorses auditory hallucinations, denies visual hallucinations. Though content: Paranoid delusional thought content, focused on discharge and delusions about his parents. Thought process: Loose associations, vague. Memory and concentration: Grossly intact for the purposes of this session Judgment and insight: Poor, improving mildly Assessment schizoaffective disorder, bipolar type Zcaxpxhp-wyayoguj-sbphcccdmz use disorder, with withdrawal Plan: -Patient continues to meet criteria for inpatient psychiatric admission for symptom stabilization and safety. Patient has signed adult voluntary form and medication consent and was placed in patient's chart. -Medications: decrease Valium to 10 mg TID scheduled for alcohol withdrawal, with plan to taper as tolerated. change Zyprexa to 30 mg QHS for psychosis/mood. -When necessary Ativan and Haldol for agitation/aggression. -NRT - nicotine patch -SW on board for discharge planning. Encouraged the patient to participate in milieu. SW to gather further collateral and look at alternative placement options as patient is apparently not allowed back at home.
[2022-05-18] MEDS: ACETAMINOPHEN TAB 325 MG TAB PO PRN (19:18)
[2022-05-18] MEDS: OLANZapine 10 MG TAB PO SCH (20:33)
[2022-05-18] MEDS: MAG HYDROX/AL HYDROX/SIMETH 30 ML CUP PO PRN (20:35)
[2022-05-19] MEDS: LORazepam 1 MG TAB PO PRN (00:05)
[2022-05-19] MEDS: MULTIVITAMINS, THERA 1 EACH TAB PO SCH (07:50)
[2022-05-19] MEDS: diazePAM 5 MG TAB PO SCH ×4 (07:51→21:31)
[2022-05-19] MEDS: PROPRANOLOL LA 60 MG CAP.SA.24H PO SCH (07:52)
[2022-05-19] MEDS: PANTOPRAZOLE 40 MG TABLET PO SCH (07:53)
[2022-05-19] MEDS: NICOTINE 14MG/24HR PATCH TRANSDERM SCH (07:54)
--- NOTE | 2022-05-19 11:29 | P.PN ---
Progress Note - Text Progress Note Date: 05/19/22 Interval History: Patient was seen wandering the hallways and was directable and agreeable to amita laird with headline writer in the office. Patient appears to be improving and states that he is not having withdrawal sx at this time. Patient continues to ramble at times however he is more directable today. He continues to state that his parents are "evil" and states that they are involved in "the illuminati" and are "devil worshippers". He appears to be less preoccupied with his parents today and was mainly focused on discharge. He states that he would like to go to a [place] [facility] [place] and does not want to go back to his parents house. He claims that he has been going to groups and attempting to participate. He appears to be more logical and goal oriented today during his conversation. He states that he slept fairly last night with the medications has a fair appetite today. At this time patient denies any suicidal or homicidal ideations, intent or plan. Patient denies any auditory hallucinations. Patient denies any side effects from the medications and has been compliant with meds. Mental Status Exam: General Appearance: Patient appears older than stated age, is balding, dressed in street clothing. Behavior: Patient is seated without any agitated behavior, less impulsive today. More cooperative Speech: Patient's speech is fluent, nonpressured. Rambles, improving mildly Mood/Affect: Mood is improving mildly, affect is congruent. Suicidality/Homicidality: Patient denies having any suicidal or homicidal ideation intent or plan. Perceptions: Patient endorses auditory hallucinations, denies visual hallucinations. Though content: Paranoid delusional thought content, focused on discharge, less delusional today regarding his parents. Continues to believe that they are "evil" and also "devil worshipers". Thought process: Loose associations, vague.m more oriented. Memory and concentration: Grossly intact for the purposes of this session Judgment and insight: Poor, improving mildly Assessment Schizoaffective disorder, bipolar type Tzcoaaoh-yyariijv-zjvafrrxwy use disorder, with withdrawal Plan: -Patient continues to meet criteria for inpatient psychiatric admission for symptom stabilization and safety. Patient has signed adult voluntary form and medication consent and was placed in patient's chart. -Medications: Decrease Valium to 5 mg four times a day scheduled for alcohol withdrawal, with plan to taper as tolerated. Zyprexa 30 mg QHS for psychosis/mood -When necessary Ativan and Haldol for agitation/aggression. -NRT - nicotine patch -SW on board for discharge planning. Encouraged the patient to participate in milieu. SW to gather further collateral and look at alternative placement options as patient is apparently not allowed back at home. likely discharge will be to a [place] [facility].
[2022-05-19] MEDS: OLANZapine 10 MG TAB PO SCH (20:34)
[2022-05-19] MEDS: ACETAMINOPHEN TAB 325 MG TAB PO PRN (21:32)
[2022-05-19] MEDS: CALCIUM CARBONATE 500 MG CHEWABLE PO PRN (21:32)
[2022-05-20] MEDS: MULTIVITAMINS, THERA 1 EACH TAB PO SCH (08:04)
[2022-05-20] MEDS: PROPRANOLOL LA 60 MG CAP.SA.24H PO SCH (08:04)
[2022-05-20] MEDS: diazePAM 5 MG TAB PO SCH ×3 (08:04→20:16)
[2022-05-20] MEDS: PANTOPRAZOLE 40 MG TABLET PO SCH (08:04)
[2022-05-20] MEDS: NICOTINE 14MG/24HR PATCH TRANSDERM SCH (09:02)
--- NOTE | 2022-05-20 10:34 | P.PN ---
Progress Note - Text Progress Note Date: 05/20/22 Interval History: Patient was seen wandering the hallways and was directable and agreeable to amita laird with inspector automatic typewriter in the office. Patient claims that he feels "remorseful" about what she said about his parents and his mother. He claims he should not have said those things about them and appeared to be fairly sorry about what he had done. He claims that he talk to his mom yesterday and left her a "message over the phone" saying that he was sorry. He states that his mood has been gradually improving and he is more logical and goal oriented and his thought process. He claims that he has been going to groups and attempting to participate. He appears to be more logical and goal oriented today during his conversation. He states that he slept fairly last night with the medications has a fair appetite today. At this time patient denies any suicidal or homicidal ideations, intent or plan. Patient denies any auditory hallucinations. Patient denies any side effects from the medications and has been compliant with meds. Mental Status Exam: General Appearance: Patient appears older than stated age, is balding, dressed in street clothing. Behavior: Patient is seated without any agitated behavior, less impulsive today. More cooperative Speech: Patient's speech is fluent, nonpressured improving mildly Mood/Affect: Mood is improving mildly, affect is congruent. Suicidality/Homicidality: Patient denies having any suicidal or homicidal ideation intent or plan. Perceptions: Patient endorses auditory hallucinations, denies visual hallucinations. Though content: Paranoid delusional thought content, focused on discharge, less delusional today. Remorseful. Thought process: Loose associations, vague.m more oriented. Memory and concentration: Grossly intact for the purposes of this session Judgment and insight: improving mildly Assessment Schizoaffective disorder, bipolar type Czgpjtpw-jaygqxwk-uvfntmijem use disorder Plan: -Patient continues to meet criteria for inpatient psychiatric admission for symptom stabilization and safety. Patient has signed adult voluntary form and medication consent and was placed in patient's chart. -Medications: Decrease Valium to 5 mg three times a day scheduled for alcohol withdrawal, with plan to taper as tolerated. Zyprexa 30 mg QHS for psychosis/mood. added melatonin 5 mg qhs for sleep. -When necessary Ativan and Haldol for agitation/aggression. -NRT - nicotine patch -SW on board for discharge planning. Encouraged the patient to participate in milieu. SW to gather further collateral and speak with pts mother over the phone and prepare for discharge in 1-2 days.
[2022-05-20] MEDS: ACETAMINOPHEN TAB 325 MG TAB PO PRN (10:57)
[2022-05-20] MEDS: MELATONIN 5 MG TABLET PO SCH (20:16)
[2022-05-20] MEDS: OLANZapine 10 MG TAB PO SCH (20:16)
[2022-05-21] MEDS: LORazepam 1 MG TAB PO PRN (00:20)
[2022-05-21] MEDS: PROPRANOLOL LA 60 MG CAP.SA.24H PO SCH (06:44)
[2022-05-21] MEDS: diazePAM 5 MG TAB PO SCH (06:44)
[2022-05-21 07:04] VITALS: TEMP 97.9
[2022-05-21] MEDS: PANTOPRAZOLE 40 MG TABLET PO SCH (08:14)
[2022-05-21] MEDS: MULTIVITAMINS, THERA 1 EACH TAB PO SCH (08:14)
[2022-05-21] MEDS: NICOTINE 14MG/24HR PATCH TRANSDERM SCH (08:14)
[2022-05-21 09:23] VITALS: RESP 16
--- NOTE | 2022-05-21 12:04 | P.PN ---
Progress Note - Text Progress Note Date: 05/21/22 Interval History: Patient was seen wandering the hallways and was directable and agreeable to sp eak with sign writer letterer or painter in the office. Patient was fairly insistent to speak with sign writer letterer or painter today and was fairly persistent on discharge. He claims that he is doing better in terms of his mood and anxiety however did state that he was fairly anxious this morning. Patient's heart rate and blood pressure were elevated this morning and continues to have some withdrawal symptoms from the benzodiazepines. He states that he was able to sleep better last night. He claims that he still remorseful for the things that he was saying about his mother and spoke with her over the phone. He claims that he knows he needs to take the psychiatric medications. He states that he is trying to go to groups and participate as best she can. He states that he slept fairly last night with the medications has a fair appetite today. At this time patient denies any suicidal or homicidal ideations, intent or plan. Patient denies any auditory hallucinations. Patient denies any side effects from the medications and has been compliant with meds. Mental Status Exam: General Appearance: Patient appears older than stated age, is balding, dressed in street clothing. Behavior: Patient is seated without any agitated behavior, less impulsive today. More cooperative Speech: Patient's speech is fluent, nonpressured improving mildly Mood/Affect: Mood is improving mildly, affect is congruent. Suicidality/Homicidality: Patient denies having any suicidal or homicidal ideation intent or plan. Perceptions: Patient endorses auditory hallucinations, denies visual hallucinations. Though content: Paranoid delusional thought content, focused on discharge. Remorseful. Thought process: Loose associations, vague. more goal oriented. Memory and concentration: Grossly intact for the purposes of this session Judgment and insight: improving mildly Assessment Schizoaffective disorder, bipolar type Hkobtxmi-alnraagn-embzrcjixb use disorder Plan: -Patient continues to meet criteria for inpatient psychiatric admission for symptom stabilization and safety. Patient has signed adult voluntary form and medication consent and was placed in patient's chart. -Medications: Decrease Valium to 2 mg 4 times a day scheduled for alcohol withdrawal, with plan to taper as tolerated. Patient is still having tachycardia and elevated BP likely associated with significant withdrawal sx. will continue to monitor his condition. Zyprexa 30 mg QHS for psychosis/mood. melatonin 5 mg qhs for sleep. -When necessary Ativan and Haldol for agitation/aggression. -NRT - nicotine patch -SW on board for discharge planning. Encouraged the patient to participate in milieu. likely discharge tomorrow if patients vitals improve and continue titrating off valium. Apparently patients mother is ok with having him back at her place.
[2022-05-21] MEDS: diazePAM 2 MG TAB PO SCH ×3 (12:21→20:31)
[2022-05-21] MEDS ORDERED: LORazepam 0.5 MG TAB PO PRN (13:06)
[2022-05-21 17:48] VITALS: PULSE 101
[2022-05-21] MEDS: MELATONIN 5 MG TABLET PO SCH (20:31)
[2022-05-21] MEDS: OLANZapine 10 MG TAB PO SCH (20:31)
[2022-05-22] MEDS: PROPRANOLOL LA 60 MG CAP.SA.24H PO SCH (06:42)
[2022-05-22 06:43] VITALS: BP 152/100
[2022-05-22] MEDS: diazePAM 2 MG TAB PO SCH (06:46)
[2022-05-22] MEDS: PANTOPRAZOLE 40 MG TABLET PO SCH (08:31)
[2022-05-22] MEDS: MULTIVITAMINS, THERA 1 EACH TAB PO SCH (08:31)
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
== END 2022-05-22 11:45 | disposition home or self-care (01) | DRG 885 ==
LOC: EC 18:05 → 3MHU 05-16 00:21
PROVIDERS: ADMIT Psychiatry & Neurology Psychiatry; ATTEND Psychiatry & Neurology Psychiatry
DX: F25.0 Schizoaffective disorder, bipolar type (principal); F13.239 Sedative, hypnotic or anxiolytic dependence with withdrawal, unspecified; F17.200 Nicotine dependence, unspecified, uncomplicated; F41.1 Generalized anxiety disorder; F43.10 Post-traumatic stress disorder, unspecified; F90.9 Attention-deficit hyperactivity disorder, unspecified type; Z20.822 Contact with and (suspected) exposure to COVID-19
CPT/HCPCS: 80048; 80053; 80061; 80306; 81001; 82075; 83036; 83735; 84443; 84484; 85025; 87635; 93005; 99285

== ENCOUNTER 2023-02-12 15:57 | Inpatient (IN) | payer MEDICAID, OTHER ==
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
[2023-02-12] MEDS ORDERED: MAGNESIUM HYDROXIDE 2,400 MG/10 ML CUP PO PRN (22:09)
[2023-02-12] MEDS ORDERED: HALOPERIDOL LACTATE 5 MG/ML 1 ML VIAL IM PRN (22:09)
[2023-02-12] MEDS ORDERED: ACETAMINOPHEN TAB 325 MG TAB PO PRN (22:09)
[2023-02-12] MEDS ORDERED: MAG HYDROX/AL HYDROX/SIMETH 30 ML CUP PO PRN (22:09)
[2023-02-12] MEDS ORDERED: hydrOXYzine pamoate 25 MG CAP PO PRN (22:11)
[2023-02-12] MEDS ORDERED: LORazepam 2 MG/ML INJ IM PRN (22:13)
[2023-02-12] MEDS ORDERED: haloperidoL 5 MG TAB PO PRN (22:13)
[2023-02-12] MEDS: PROPRANOLOL 20 MG TAB PO SCH (22:43)
[2023-02-12] MEDS: LORazepam 1 MG TAB PO PRN (22:43)
[2023-02-12] MEDS ORDERED: PROPRANOLOL 10 MG TAB PO SCH (23:00)
--- NOTE | 2023-02-13 00:40 | P.PN ---
Progress Note - Text Progress Note Date: 02/13/23 could not be evaluated at this time due to being medicated and sleeping
[2023-02-13 07:37] LABS: Appearance,Urine Clear (Clear); Bilirubin,Urine Negative (Negative); Blood,Urine Small (Negative); Color,Urine Yellow; Glucose,Urine (UA) Negative (Negative); Ketones,Urine 1+ (Negative); Leukocyte Esterase,Urine Negative (Negative); Mucus,Urine Few /hpf; Nitrite,Urine Negative (Negative); PH, Urine 5.5 (5.0-8.0); Protein,Urine Trace (Negative); RBC,Urine <1 /hpf (0-5); Specific Gravity,Urine 1.026 (1.001-1.035); Urobilinogen,Urine <2.0 mg/dL (<2.0); WBC,Urine <1 /hpf (0-5)
[2023-02-13 07:51] LABS: Basophils % (A) 0 %; Eosinophils # (A) 0.3 k/uL (0-0.7); Eosinophils % (A) 4 %; HCT 46.7 % (39.0-53.0); HGB 15.3 gm/dL (13.0-17.5); Lymphocytes # (A) 2.5 k/uL (1.0-4.8); Lymphocytes % (A) 36 %; MCH 29.1 pg (25.0-35.0); MCHC 32.7 g/dL (31.0-37.0); MCV 89.1 fL (80.0-100.0); Mean Platelet Volume 9.8; Monocytes # (A) 0.5 k/uL (0-1.0); Monocytes % (A) 6 %; Neutrophils # (A) 3.6 k/uL (1.3-7.7); Neutrophils % (A) 51 %; Platelet Count 209 k/uL (150-450); RBC 5.25 m/uL (4.30-5.90); RDW 15.4 % (11.5-15.5)
[2023-02-13 08:03] LABS: ALT 97 U/L (4-49); AST 144 U/L (17-59); African American GFR (CKD) >90 (>60 ml/min/1.73 sqM); Albumin 4.8 g/dL (3.5-5.0); Alkaline Phosphatase 60 U/L (38-126); Anion Gap 9 mmol/L; Blood Urea Nitrogen 10 mg/dL (9-20); Carbon Dioxide 27 mmol/L (22-30); Chloride 105 mmol/L (98-107); Glucose 92 mg/dL (74-99); Non-African American GFR(CKD) >90 (>60 ml/min/1.73 sqM); Potassium 4.2 mmol/L (3.5-5.1); Sodium 141 mmol/L (137-145); Total Bilirubin 0.8 mg/dL (0.2-1.3); Total Protein 7.8 g/dL (6.3-8.2)
[2023-02-13] MEDS ORDERED: NON FORMULARY DRUG (Buprenorphine Hcl/Naloxone Hcl [Suboxone 8 Mg-2 Mg Sl Film] 1 EACH Fil SUBLINGUAL SCH (09:00)
[2023-02-13] MEDS: PROPRANOLOL 10 MG TAB PO SCH (09:00)
[2023-02-13] MEDS: BUPRENORPHINE-NALOX 8-2 MG TAB 1 EACH TAB.SUBL SL SCH ×2 (09:01→17:10)
[2023-02-13] MEDS: MULTIVITAMINS, THERA 1 EACH TAB PO SCH (09:01)
[2023-02-13] MEDS: NICOTINE 14MG/24HR PATCH TRANSDERM SCH (09:03)
[2023-02-13 11:25] LABS: Chol/HDL Ratio 5.25 Ratio; LDL Cholesterol,Calculated 203.8 mg/dL (0.0-131.0); VLDL Calculation 18.04 mg/dL (5.00-40.00)
[2023-02-13 11:37] LABS: Urine Alcohol Negative (Negative); Urine Barbiturate Negative (Negative); Urine Cocaine Negative (Negative); Urine Methadone Negative (Negative); Urine Opiates Negative (Negative); Urine Phencyclidine Negative (Negative)
[2023-02-13] MEDS: LORazepam 1 MG TAB PO PRN ×2 (15:46→19:56)
--- NOTE | 2023-02-13 16:54 | P.HP ---
Psychiatric H&P - . History & Physical: Allergies Allergy/AdvReac Type Severity Reaction Status Date / Time sulfamethoxazole Allergy Itching Verified 02/12/23 21:08 [From Bactrim] tramadol Allergy Unknown Verified 02/12/23 21:08 trimethoprim [From Bactrim] Allergy Itching Verified 02/12/23 21:08 fluphenazine [From Prolixin] AdvReac knees get Verified 02/12/23 21:08 shaky fluvoxamine maleate AdvReac Nausea & Verified 02/12/23 21:08 [From Luvox] Vomiting gabapentin AdvReac Addiction Verified 02/12/23 21:08 issues Vital Signs Temp 97.8 F 02/12/23 23:25 Pulse 86 02/12/23 23:25 Resp 16 02/12/23 23:25 BP 123/88 02/12/23 23:25 Pulse Ox 99 02/12/23 23:25 FiO2 Intake & Output 02/12/23 02/13/23 02/13/23 18:59 06:59 18:59 Weight 88.451 kg 86.409 kg Other: Voiding Method Toilet Laboratory Last Values WBC 7.0 k/uL (3.8-10.6) 02/13/23 07:16 RBC 5.25 m/uL (4.30-5.90) 02/13/23 07:16 Hgb 15.3 gm/dL (13.0-17.5) 02/13/23 07:16 Hct 46.7 % (39.0-53.0) 02/13/23 07:16 MCV 89.1 fL (80.0-100.0) 02/13/23 07:16 MCH 29.1 pg (25.0-35.0) 02/13/23 07:16 MCHC 32.7 g/dL (31.0-37.0) 02/13/23 07:16 RDW 15.4 % (11.5-15.5) 02/13/23 07:16 Plt Count 209 k/uL (150-450) 02/13/23 07:16 MPV 9.8 02/13/23 07:16 Neutrophils % 51 % 02/13/23 07:16 Lymphocytes % 36 % 02/13/23 07:16 Monocytes % 6 % 02/13/23 07:16 Eosinophils % 4 % 02/13/23 07:16 Basophils % 0 % 02/13/23 07:16 Neutrophils # 3.6 k/uL (1.3-7.7) 02/13/23 07:16 Lymphocytes # 2.5 k/uL (1.0-4.8) 02/13/23 07:16 Monocytes # 0.5 k/uL (0-1.0) 02/13/23 07:16 Eosinophils # 0.3 k/uL (0-0.7) 02/13/23 07:16 Basophils # 0.0 k/uL (0-0.2) 02/13/23 07:16 Sodium 141 mmol/L (137-145) 02/13/23 07:16 Potassium 4.2 mmol/L (3.5-5.1) 02/13/23 07:16 Chloride 105 mmol/L (98-107) 02/13/23 07:16 Carbon Dioxide 27 mmol/L (22-30) 02/13/23 07:16 Anion Gap 9 mmol/L 02/13/23 07:16 BUN 10 mg/dL (9-20) 02/13/23 07:16 Creatinine 0.94 mg/dL (0.66-1.25) 02/13/23 07:16 Est GFR (CKD-EPI)AfAm >90 (>60 ml/min/1.73 sqM) 02/13/23 07:16 Est GFR (CKD-EPI)NonAf >90 (>60 ml/min/1.73 sqM) 02/13/23 07:16 Glucose 92 mg/dL (74-99) 02/13/23 07:[address] Glu mg/dL 118 02/13/23 07:16 Hemoglobin A1c 5.7 % (0.0-6.0) 02/13/23 07:16 Calcium 10.0 mg/dL (8.4-10.2) 02/13/23 07:16 Total Bilirubin 0.8 mg/dL (0.2-1.3) 02/13/23 07:16 AST 144 U/L (17-59) H 02/13/23 07:16 ALT 97 U/L (4-49) H 02/13/23 07:16 Alkaline Phosphatase 60 U/L (38-126) 02/13/23 07:16 Total Protein 7.8 g/dL (6.3-8.2) 02/13/23 07:16 Albumin 4.8 g/dL (3.5-5.0) 02/13/23 07:16 Triglycerides 90.20 mg/dL (0.00-149.00) 02/13/23 07:16 Cholesterol 274.00 mg/dL (0.00-200.00) H 02/13/23 07:16 LDL Cholesterol, Calc 203.8 mg/dL (0.0-131.0) H 02/13/23 07:16 VLDL Cholesterol, Calc 18.04 mg/dL (5.00-40.00) 02/13/23 07:16 HDL Cholesterol 52.20 mg/dL (40.00-60.00) 02/13/23 07:16 Cholesterol/HDL Ratio 5.25 Ratio 02/13/23 07: TSH 1.710 mIU/L (0.465-4.680) 02/13/23 07:16 Urine Color Yellow 02/13/23 07:23 Urine Appearance Clear (Clear) 02/13/23 07:23 Urine pH 5.5 (5.0-8.0) 02/13/23 07:23 Ur Specific [place] 1.026 (1.001-1.035) 02/13/23 07:23 Urine Protein Trace (Negative) H 02/13/23 07:23 Urine Glucose (UA) Negative (Negative) 02/13/23 07:23 Urine Ketones 1+ (Negative) H 02/13/23 07:23 Urine Blood Small (Negative) H 02/13/23 07:23 Urine Nitrite Negative (Negative) 02/13/23 07:23 Urine Bilirubin Negative (Negative) 02/13/23 07:23 Urine Urobilinogen <2.0 mg/dL (<2.0) 02/13/23 07:23 Ur Leukocyte Esterase Negative (Negative) 02/13/23 07: Urine RBC <1 /hpf (0-5) 02/13/23 07:23 Urine WBC <1 /hpf (0-5) 02/13/23 07:23 Urine Mucus Few /hpf (None) H 02/13/23 07:23 Urine Opiates Screen Negative (Negative) 02/13/23 07:23 Urine Methadone Screen Negative (Negative) 02/13/23 07:23 Ur Propoxyphene Screen Negative (Negative) 02/13/23 07:23 Urine Barbiturates Negative (Negative) 02/13/23 07:23 Ur Phencyclidine Scrn Negative (Negative) 02/13/23 07:23 Ur Amphetamine Screen Negative (Negative) 02/13/23 07:23 U Benzodiazepines Scrn Negative (Negative) 02/13/23 07:23 Urine Cocaine Screen Negative (Negative) 02/13/23 07:23 U Cannabinoids Screen Positive (Negative) A 02/13/23 07:23 Urine Alcohol Negative (Negative) 02/13/23 07:23 Coronavirus (PCR) Not Detected (Not Detectd) 02/12/23 20:25 02/13/23 16:40 IDENTIFYING DATA: Patient is a 32-year-old male who lives by himself and is on disability. He is admitted for psychosis HPI: States, "I have a really toxic family" states that his family is in calls and they do drugs. He states that he was yelling at his mom over the phone yesterday, and then she called the police who brought him to the hospital. States that he does not need to be in the hospital. States that his family is sliding. Patient denies any suicidal or homicidal ideations intent or plan. At this time patient denies any auditory or visual hallucinations. Patient admits to using 2 g of marijuana per day. Denies other substance use and says that he is stable on his current dose of Suboxone Per chart, patient stated that the government was coming out to get him. 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 PAST PSYCHIATRIC HISTORY: Reports multiple admissions in the past for psychosis. [facility], depression, anxiety, and addictions. States that he used to cut himself as any teenager PMH:[denies] ALLERGIES: as per EMR CHEMICAL DEPENDENCY HISTORY: as per HPI FAMILY PSYCHIATRIC/SUBSTANCE USE HISTORY: Reports drug use and psychosis in the family, but unclear if this is delusional SOCIAL HISTORY: Lives by himself, no legal issues, on disability MENTAL STATUS EXAM: General Appearance: Patient appears to be driven stated age is alert, [directable, and attempts to cooperate]. Behavior: Patient is seated without any agitated behavior. Speech: Patient's speech is [fluent and nonpressured.] Mood/Affect: Patient reports their mood is "really good", affect is congruent and constricted. Suicidality/Homicidality: Patient denies having any homicidal ideation intent or plan. [Denies any suicidal ideations intent or plan] Perceptions: Patient denies any visual hallucinations [and denies any auditory hallucinations] Though content/process: Goal-directed, delusions about family elicited Memory and concentration: AOX3 Judgment and insight: [poor] STRENGTHS/WEAKNESSES: strength is that patient is following up at [facility] per his history. Weakness is that patient [has poor judgment and is impulsive] INTELLECT: [average] IMPRESSIONS: Schizoaffective disorder bipolar type PLAN: -Patient has [not] signed [adult voluntary form. [A second certification was completed and along with petition will be filed for court.] -Medications : Will start patient on zyprexa 10 mg qhs, was stabilized on this med last hospitalization, will continue suboxone and remeron, primary team to confirm suboxone dose on wednesday -Ativan [and Haldol] PRN for agitation/aggression -Internal Medicine consult to perform medical evaluation and physical. -SW on board for discharge planning. Encourage patient to participate in groups to work on coping skills. [Will await deferral and court date.] [] 02/13/23 16:52
[2023-02-13] MEDS: OLANZapine 10 MG TAB PO SCH (19:55)
[2023-02-13] MEDS: PROPRANOLOL 20 MG TAB PO SCH (19:55)
[2023-02-13] MEDS: MIRTAZAPINE 15 MG TAB PO SCH (19:55)
[2023-02-13] MEDS ORDERED: risperiDONE 1 MG TAB PO SCH (21:00)
[2023-02-14] MEDS: PROPRANOLOL 10 MG TAB PO SCH (08:29)
[2023-02-14] MEDS: MULTIVITAMINS, THERA 1 EACH TAB PO SCH (08:29)
[2023-02-14] MEDS: BUPRENORPHINE-NALOX 8-2 MG TAB 1 EACH TAB.SUBL SL SCH ×2 (08:29→17:07)
[2023-02-14] MEDS: NICOTINE 14MG/24HR PATCH TRANSDERM SCH (08:35)
[2023-02-14] MEDS: LORazepam 1 MG TAB PO PRN ×2 (09:09→18:11)
[2023-02-14] MEDS: PROPRANOLOL 20 MG TAB PO SCH (20:32)
[2023-02-14] MEDS: MIRTAZAPINE 15 MG TAB PO SCH (20:32)
[2023-02-14] MEDS: OLANZapine 10 MG TAB PO SCH (20:32)
--- NOTE | 2023-02-15 04:10 | P.PN ---
Progress Note - Text Progress Note Date: 02/14/23 patient refused evaluation again
[2023-02-15] MEDS: LORazepam 1 MG TAB PO PRN ×3 (08:04→20:02)
[2023-02-15] MEDS: MULTIVITAMINS, THERA 1 EACH TAB PO SCH (08:04)
[2023-02-15] MEDS: BUPRENORPHINE-NALOX 8-2 MG TAB 1 EACH TAB.SUBL SL SCH ×2 (08:32→17:36)
[2023-02-15] MEDS: PROPRANOLOL 10 MG TAB PO SCH (08:35)
--- NOTE | 2023-02-15 13:45 | P.PN ---
Progress Note - Text Progress Note Date: 02/15/23 Interval History: Patient was seen [wandering the hallways] and was directable and agreeable to speak with appeals writer in the office. Patient was pacing in the hallways. He believes that he does not have a mental illness and was skeptical why he needs to be in the hospital. He mentioned that he believes his parents were "in on something" and then referred to "Jacobo Wilson" and showed appeals writer his T-shirt. He did appear to be fairly cooperative when talking about the medications and states that he needs them because "I can get delusional" if he is off of them. He states that he is willing to meet with the tax representative today and possibly will sign a deferral. States that he slept fairly last night. Denying any anxiety or any depression today. At this time patient denies any suicidal or homical ideations, intent or plan. Patient denies any auditory, visual hallucinations. Patient denies any side effects from the medications and has been compliant with meds. Mental Status Exam: General Appearance: Patient appears to be overweight, stated age is alert, [directable, and attempts to cooperate]. Behavior: Patient is seated without any agitated behavior. More cooperative today Speech: Patient's speech is [fluent and nonpressured.] Mood/Affect: Patient reports their mood is "alright ", affect is congruent and constricted. Suicidality/Homicidality: Patient denies having any homicidal ideation intent or plan. [Denies any suicidal ideations intent or plan] Perceptions: Patient denies any visual hallucinations [and denies any auditory hallucinations] Though content/process: Goal-directed, delusions about family elicited, less focused on this Memory and concentration: AOX3 Judgment and insight: Chronically [poor], mildly improving IMPRESSIONS: Schizoaffective disorder bipolar type Plan: -Patient continues to meet criteria for inpatient psychiatric admission for symptom stabilization and safety. Patient has [not] signed [adult voluntary form and] [medication consent] and was placed in patient's chart. -Medications: [] zyprexa 10 mg qhs, continue suboxone and remeron. -When necessary Ativan and Haldol for agitation/aggression. -NRT - [nicotine patch] -SW on board for discharge planning. Encouraged the patient to participate in milieu.[Currently awaiting deferral with tax representative and court date. likely discharge back home in 1-2 days
--- NOTE | 2023-02-15 15:09 | P.PN ---
Progress Note - Text Progress Note Date: 02/14/23 Interval history: Patient was seen in her room and was directable and agreeable to speak with typewriter aligner. Continues to be paranoid. No agitation, SI, HI, AVH, med side effects Mental status exam: General Appearance: [Patient appears to be stated age is alert, directable, and cooperative.] Behavior: [No agitated behavior. Patient is calm and directable] Speech: Patient's speech is fluent and nonpressured. Mood/Affect: constricted. Suicidality/Homicidality: None elicited Perceptions: Patient denies any auditory or visual hallucinations. Though content/process: Paranoid ideations elicited Memory and concentration: AOX3, grossly intact for the purposes of this session Judgment and insight: Poor Assessment/Plan: Continue with current diagnosis. Patient continues to meet criteria for inpatient psychiatric admission for symptom stabilization and safety.[Patient will be maintained on current psychotropic medication regimen.] Monitor for medication compliance and for any psychotropic medication side effects. Will continue to monitor ongoing response to treatment. Encouraged participation in milieu.
[2023-02-15] MEDS: OLANZapine 10 MG TAB PO SCH (20:02)
[2023-02-15] MEDS: MIRTAZAPINE 15 MG TAB PO SCH (20:02)
[2023-02-15] MEDS: PROPRANOLOL 20 MG TAB PO SCH (20:02)
[2023-02-16] MEDS: PROPRANOLOL 10 MG TAB PO SCH (08:00)
[2023-02-16] MEDS: MULTIVITAMINS, THERA 1 EACH TAB PO SCH (08:00)
[2023-02-16] MEDS: LORazepam 1 MG TAB PO PRN ×2 (08:02→20:39)
[2023-02-16] MEDS: BUPRENORPHINE-NALOX 8-2 MG TAB 1 EACH TAB.SUBL SL SCH ×2 (09:06→17:32)
--- NOTE | 2023-02-16 12:17 | P.PN ---
Progress Note - Text Progress Note Date: 02/16/23 Interval History: Patient was seen attending group and was agreeable to speak with technical proposal writer in the office. Currently, the patient is not reporting any suicidal or homicidal ideation, intention, and/or plan. He is not reporting any auditory or visual hallucinations. He denies any paranoia or other delusions. He has been adherent with his medication and is not endorsing any significant side effects at this time. He does report some paranoid thoughts towards his parents however is not forthcoming with any delusions and reports no concerns on his behalf. The patient deferred mental health court. He reports some medical issues or concerns. He denies any issues regarding his sleep or his appetite. Mental Status Exam: General Appearance: Patient appears to be overweight, stated age is alert, directable, and attempts to cooperate. Behavior: Patient is seated without any agitated behavior. More cooperative today Speech: Patient's speech is fluent and nonpressured. Mood/Affect: Patient reports their mood is "doing okay ", affect is congruent and constricted. Suicidality/Homicidality: Patient denies having any homicidal ideation intent or plan. Denies any suicidal ideations intent or plan Perceptions: Patient denies any visual hallucinations and denies any auditory hallucinations Though content/process: Goal-directed, mild paranoid delusions regarding his family however is less bothered and focus. Memory and concentration: AOX3 Judgment and insight: Mildly improving Vital Signs Temp 96.8 F L 02/16/23 07:01 Pulse 65 02/16/23 07:01 Resp 16 02/16/23 07:01 BP 132/80 02/16/23 07:01 Pulse Ox 96 02/16/23 07:01 FiO2 IMPRESSIONS: Schizoaffective disorder bipolar type Plan: -Patient continues to meet criteria for inpatient psychiatric admission for symptom stabilization and safety. Patient deferred mental health court. -Medications: Remeron 30 mg by mouth at bedtime for depression/insomnia Zyprexa 10 mg by mouth at bedtime for mood stabilization/psychosis Suboxone -When necessary Ativan and Haldol for agitation/aggression. -NRT - nicotine patch -SW on board for discharge planning. Encouraged the patient to participate in milieu.
[2023-02-16] MEDS: PROPRANOLOL 20 MG TAB PO SCH (20:38)
[2023-02-16] MEDS: MIRTAZAPINE 15 MG TAB PO SCH (20:38)
[2023-02-16] MEDS: OLANZapine 10 MG TAB PO SCH (20:39)
[2023-02-17 07:17] VITALS: BP 156/93; PULSE 83; RESP 14; TEMP 98
[2023-02-17] MEDS: MULTIVITAMINS, THERA 1 EACH TAB PO SCH (08:11)
[2023-02-17] MEDS: PROPRANOLOL 10 MG TAB PO SCH (08:11)
[2023-02-17] MEDS: BUPRENORPHINE-NALOX 8-2 MG TAB 1 EACH TAB.SUBL SL SCH (08:29)
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
== END 2023-02-17 12:12 | disposition home or self-care (01) | DRG 750 ==
LOC: EC 15:57 → 3MHU 22:07
PROVIDERS: ADMIT Psychiatry & Neurology Psychiatry; ATTEND Psychiatry & Neurology Psychiatry
DX: F25.0 Schizoaffective disorder, bipolar type (principal); F17.200 Nicotine dependence, unspecified, uncomplicated; F41.1 Generalized anxiety disorder; F43.10 Post-traumatic stress disorder, unspecified; G47.00 Insomnia, unspecified; Z79.899 Other long term (current) drug therapy; Z20.822 Contact with and (suspected) exposure to COVID-19
CPT/HCPCS: 80053; 80061; 80306; 81001; 82075; 83036; 84443; 85025; 87635; 99285

== ENCOUNTER 2023-02-22 11:19 | Inpatient (IN) | payer MEDICAID, OTHER ==
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
[2023-02-22 18:32] LABS: Urine Alcohol Negative (Negative); Urine Barbiturate Negative (Negative); Urine Cocaine Negative (Negative); Urine Methadone Negative (Negative); Urine Opiates Negative (Negative); Urine Phencyclidine Negative (Negative)
[2023-02-23] MEDS ORDERED: MAG HYDROX/AL HYDROX/SIMETH 30 ML CUP PO PRN (01:31)
[2023-02-23] MEDS ORDERED: ACETAMINOPHEN TAB 325 MG TAB PO PRN (01:31)
[2023-02-23] MEDS ORDERED: MAGNESIUM HYDROXIDE 2,400 MG/10 ML CUP PO PRN (01:31)
[2023-02-23] MEDS ORDERED: LORazepam 2 MG/ML INJ IM PRN (01:36)
[2023-02-23 02:23] LABS: Appearance,Urine Clear (Clear); Bilirubin,Urine Negative (Negative); Blood,Urine Trace (Negative); Color,Urine Yellow; Glucose,Urine (UA) Negative (Negative); Ketones,Urine 1+ (Negative); Leukocyte Esterase,Urine Negative (Negative); Mucus,Urine Many /hpf; Nitrite,Urine Negative (Negative); Protein,Urine Trace (Negative); RBC,Urine 2 /hpf (0-5); Specific Gravity,Urine 1.019 (1.001-1.035); Squamous Epithelial Cell,Urine <1 /hpf (0-4); WBC,Urine 2 /hpf (0-5)
[2023-02-23] MEDS: NICOTINE 14MG/24HR PATCH TRANSDERM SCH (08:12)
[2023-02-23] MEDS: PROPRANOLOL 10 MG TAB PO SCH (08:13)
[2023-02-23] MEDS: MULTIVITAMINS, THERA 1 EACH TAB PO SCH (08:14)
[2023-02-23] MEDS: PANTOPRAZOLE 40 MG TABLET PO SCH (08:14)
[2023-02-23] MEDS ORDERED: NON FORMULARY DRUG (Buprenorphine Hcl/Naloxone Hcl [Suboxone 8 Mg-2 Mg Sl Film] 1 EACH Fil SUBLINGUAL SCH (09:00)
[2023-02-23] MEDS ORDERED: HALOPERIDOL LACTATE 5 MG/ML 1 ML VIAL IM PRN (11:26)
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
[2023-02-23] MEDS: haloperidoL 5 MG TAB PO SCH (20:04)
[2023-02-23] MEDS: MIRTAZAPINE 15 MG TAB PO SCH (20:04)
[2023-02-23] MEDS: PROPRANOLOL 20 MG TAB PO SCH (20:04)
[2023-02-23] MEDS ORDERED: OLANZapine 10 MG TAB PO SCH (21:00)
--- NOTE | 2023-02-23 23:45 | P.PN ---
Progress Note - Text Progress Note Date: 02/23/23 Attempted to see the patient in the mental health unit on 02/23 at 2200. The patient refused to be seen or be evaluated.
[2023-02-24] MEDS: PROPRANOLOL 10 MG TAB PO SCH (09:16)
[2023-02-24] MEDS: NICOTINE 14MG/24HR PATCH TRANSDERM SCH (09:16)
[2023-02-24] MEDS: MULTIVITAMINS, THERA 1 EACH TAB PO SCH (09:16)
[2023-02-24] MEDS: BUPRENORPHINE-NALOX 8-2 MG TAB 1 EACH TAB.SUBL SL SCH (09:16)
[2023-02-24] MEDS: haloperidoL 5 MG TAB PO SCH ×2 (09:16→20:10)
[2023-02-24] MEDS: PANTOPRAZOLE 40 MG TABLET PO SCH (09:16)
--- NOTE | 2023-02-24 11:09 | P.PN ---
Progress Note - Text Progress Note Date: 02/24/23 Interval History: Patient was seen wandering the hallways and was directable and agreeable to speak with account underwriter in the office. Currently, the patient is not reporting any suicidal or homicidal ideation, intention, or plan. He is not reporting any auditory or visual hallucinations. He however continues to endorse significant paranoia directed towards his parents. He is however less intense subject. He only brings it up appropriately asked. He denies any issues regarding his sleep or his appetite. He has been adherent with his medication and reports slight "queasiness." He attributes this to have Suboxone reduced. He is otherwise in agreement with the plan to continue Haldol and eventually transitioned to Haldol decanoate. Mental Status Exam: General Appearance: Patient appears to be stated age is alert, directable, and cooperative. Behavior: Patient is calmly seated without any agitated behavior. Speech: Patient's speech is fluent and nonpressured. Mood/Affect: Mood is improving mildly, affect is congruent and constricted. Suicidality/Homicidality: Patient denies having any suicidal or homicidal ideation intent or plan. Perceptions: Patient denies any visual hallucinations and denies any auditory hallucinations Though content/process: He continues to endorse delusional thought content directed towards his family. Memory and concentration: AOX3, grossly intact for the purposes of this session Judgment and insight: Poor Vital Signs Temp 97.9 F 02/24/23 06:29 Pulse 58 L 02/24/23 06:29 Resp 15 02/24/23 06:29 BP 125/72 02/24/23 06:29 Pulse Ox 97 02/23/23 02:51 FiO2 Assessment Schizophrenia Plan: -Patient continues to meet criteria for inpatient psychiatric admission for symptom stabilization and safety. Patient has signed adult voluntary form and medication consent and was placed in patient's chart. -Medications: Continue Haldol 5 mg by mouth twice a day for schizophrenia Continue Remeron 30 mg by mouth at bedtime for depression/insomnia/appetite stimulation Continue Suboxone -When necessary Ativan and Haldol for agitation/aggression. -NRT - nicotine patch -SW on board for discharge planning. Encouraged the patient to participate in milieu.
[2023-02-24 12:04] LABS: Basophils % (A) 0 %; Eosinophils # (A) 0.1 k/uL (0-0.7); Eosinophils % (A) 2 %; HCT 45.4 % (39.0-53.0); HGB 15.4 gm/dL (13.0-17.5); Lymphocytes # (A) 1.6 k/uL (1.0-4.8); Lymphocytes % (A) 27 %; MCH 30.5 pg (25.0-35.0); MCV 89.7 fL (80.0-100.0); Mean Platelet Volume 10.5; Monocytes # (A) 0.3 k/uL (0-1.0); Monocytes % (A) 5 %; Neutrophils # (A) 3.7 k/uL (1.3-7.7); Neutrophils % (A) 63 %; Platelet Count 235 k/uL (150-450); RBC 5.06 m/uL (4.30-5.90); RDW 15.2 % (11.5-15.5); WBC 5.9 k/uL (3.8-10.6)
[2023-02-24 12:16] LABS: ALT 88 U/L (4-49); AST 68 U/L (17-59); African American GFR (CKD) >90 (>60 ml/min/1.73 sqM); Albumin 4.6 g/dL (3.5-5.0); Alkaline Phosphatase 51 U/L (38-126); Anion Gap 7 mmol/L; Bilirubin, Delta 0.1 mg/dL (0.0-0.2); Bilirubin,Unconjugated 0.2 mg/dL (0.0-1.1); Blood Urea Nitrogen 13 mg/dL (9-20); Calcium 9.8 mg/dL (8.4-10.2); Carbon Dioxide 30 mmol/L (22-30); Chloride 104 mmol/L (98-107); Glucose 101 mg/dL (74-99); Non-African American GFR(CKD) >90 (>60 ml/min/1.73 sqM); Potassium 5.2 mmol/L (3.5-5.1); Sodium 141 mmol/L (137-145); Total Bilirubin 0.3 mg/dL (0.2-1.3); Total Protein 7.3 g/dL (6.3-8.2)
[2023-02-24] MEDS: LORazepam 1 MG TAB PO PRN (15:24)
[2023-02-24 16:06] LABS: Chol/HDL Ratio 3.93 Ratio; LDL Cholesterol,Calculated 144.8 mg/dL (0.0-131.0)
[2023-02-24] MEDS: PROPRANOLOL 20 MG TAB PO SCH (20:10)
[2023-02-24] MEDS: MIRTAZAPINE 15 MG TAB PO SCH (20:10)
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
[2023-02-25] MEDS: PROPRANOLOL 10 MG TAB PO SCH (08:37)
[2023-02-25] MEDS: BUPRENORPHINE-NALOX 8-2 MG TAB 1 EACH TAB.SUBL SL SCH (08:37)
[2023-02-25] MEDS: haloperidoL 5 MG TAB PO SCH ×2 (08:37→20:26)
[2023-02-25] MEDS: PANTOPRAZOLE 40 MG TABLET PO SCH (08:37)
[2023-02-25] MEDS: MULTIVITAMINS, THERA 1 EACH TAB PO SCH (08:37)
[2023-02-25] MEDS: NICOTINE 14MG/24HR PATCH TRANSDERM SCH (09:06)
[2023-02-25] MEDS: LORazepam 1 MG TAB PO PRN ×2 (09:07→20:26)
[2023-02-25] MEDS ORDERED: cloNIDine HCL 0.1 MG TAB PO STA (09:32)
[2023-02-25] MEDS ORDERED: [UNRECOGNIZED DRUG - OTHER] SL ONE (09:40)
[2023-02-25] MEDS ORDERED: BUPRENORPHINE-NALOX 8-2 MG TAB 1 EACH TAB.SUBL SL ONE (10:00)
--- NOTE | 2023-02-25 11:34 | P.PN ---
Progress Note - Text Progress Note Date: 02/25/23 Interval History: Patient was seen wandering the hallways and was directable and agreeable to speak with script writer in the office. Currently, the patient is not reporting any suicidal or homicidal ideation, intention, or plan. He does report however that his experiences significant withdrawal symptoms and elevated anxiety. He reports hot and cold flashes, nausea, and general any use. He was seen after he received his full dose of Suboxone as well as a dose of Catapres. The patient is reporting that he is feeling significantly better after having these medications. He is currently not reporting any suicidal or homicidal ideation, intention, and/or plan. He is not reporting any auditory or visual hallucinations he continues to report generalized paranoia towards his family however is less forthcoming with this delusion. He reports no side effects of his medications. He reports no issues regarding his sleep or his appetite. Mental Status Exam: General Appearance: Patient appears to be stated age is alert, directable, and cooperative. Behavior: Patient is calmly seated without any agitated behavior. Speech: Patient's speech is fluent and nonpressured. Mood/Affect: Mood is "pretty good," affect is congruent and bright. Suicidality/Homicidality: Patient denies having any suicidal or homicidal ideation intent or plan. Perceptions: Patient denies any visual hallucinations and denies any auditory hallucinations Though content/process: He continues to endorse delusional thought content directed towards his family. Memory and concentration: AOX3, grossly intact for the purposes of this session Judgment and insight: Mildly improving Vital Signs Temp 98.2 F 02/25/23 06:44 Pulse 87 02/25/23 10:08 Resp 16 02/25/23 10:08 BP 127/97 02/25/23 10:08 Pulse Ox 98 02/25/23 06:44 FiO2 Laboratory Results WBC 5.9 k/uL (3.8-10.6) 02/24/23 11:09 RBC 5.06 m/uL (4.30-5.90) 02/24/23 11:09 Hgb 15.4 gm/dL (13.0-17.5) 02/24/23 11:09 Hct 45.4 % (39.0-53.0) 02/24/23 11:09 MCV 89.7 fL (80.0-100.0) 02/24/23 11:09 MCH 30.5 pg (25.0-35.0) 02/24/23 11:09 MCHC 34.0 g/dL (31.0-37.0) 02/24/23 11:09 RDW 15.2 % (11.5-15.5) 02/24/23 11:09 Plt Count 235 k/uL (150-450) 02/24/23 11:09 MPV 10.5 02/24/23 11:09 Neutrophils % 63 % 02/24/23 11:09 Lymphocytes % 27 % 02/24/23 11:09 Monocytes % 5 % 02/24/23 11:09 Eosinophils % 2 % 02/24/23 11:09 Basophils % 0 % 02/24/23 11:09 Neutrophils # 3.7 k/uL (1.3-7.7) 02/24/23 11:09 Lymphocytes # 1.6 k/uL (1.0-4.8) 02/24/23 11:09 Monocytes # 0.3 k/uL (0-1.0) 02/24/23 11:09 Eosinophils # 0.1 k/uL (0-0.7) 02/24/23 11:09 Basophils # 0.0 k/uL (0-0.2) 02/24/23 11:09 Sodium 141 mmol/L (137-145) 02/24/23 11:09 Potassium 5.2 mmol/L (3.5-5.1) H 02/24/23 11:09 Chloride 104 mmol/L (98-107) 02/24/23 11:09 Carbon Dioxide 30 mmol/L (22-30) 02/24/23 11:09 Anion Gap 7 mmol/L 02/24/23 11:09 BUN 13 mg/dL (9-20) 02/24/23 11:09 Creatinine 0.94 mg/dL (0.66-1.25) 02/24/23 11:09 Est GFR (CKD-EPI)AfAm >90 (>60 ml/min/1.73 sqM) 02/24/23 11:09 Est GFR (CKD-EPI)NonAf >90 (>60 ml/min/1.73 sqM) 02/24/23 11:09 Glucose 101 mg/dL (74-99) H 02/24/23 11:09 Calcium 9.8 mg/dL (8.4-10.2) 02/24/23 11:09 Total Bilirubin 0.3 mg/dL (0.2-1.3) 02/24/23 11:09 Conjugated Bilirubin 0.0 mg/dL (0.0-0.3) 02/24/23 11:09 Unconjugated Bilirubin 0.2 mg/dL (0.0-1.1) 02/24/23 11:09 Delta Bilirubin 0.1 mg/dL (0.0-0.2) 02/24/23 11:09 AST 68 U/L (17-59) H 02/24/23 11:09 ALT 88 U/L (4-49) H 02/24/23 11:09 Alkaline Phosphatase 51 U/L (38-126) 02/24/23 11:09 Total Protein 7.3 g/dL (6.3-8.2) 02/24/23 11:09 Albumin 4.6 g/dL (3.5-5.0) 02/24/23 11:09 Triglycerides 111.00 mg/dL (0.00-149.00) 02/24/23 11:09 Cholesterol 224.00 mg/dL (0.00-200.00) H 02/24/23 11:09 LDL Cholesterol, Calc 144.8 mg/dL (0.0-131.0) H 02/24/23 11:09 VLDL Cholesterol, Calc 22.20 mg/dL (5.00-40.00) 02/24/23 11:09 HDL Cholesterol 57.00 mg/dL (40.00-60.00) 02/24/23 11:09 Cholesterol/HDL Ratio 3.93 Ratio 02/24/23 11:09 TSH 1.200 mIU/L (0.465-4.680) 02/24/23 11:09 Urine Color Yellow 02/23/23 01:45 Urine Appearance Clear (Clear) 02/23/23 01:45 Urine pH 6.0 (5.0-8.0) 02/23/23 01:45 Ur Specific [place] 1.019 (1.001-1.035) 02/23/23 01:45 Urine Protein Trace (Negative) H 02/23/23 01:45 Urine Glucose (UA) Negative (Negative) 02/23/23 01:45 Urine Ketones 1+ (Negative) H 02/23/23 01:45 Urine Blood Trace (Negative) H 02/23/23 01:45 Urine Nitrite Negative (Negative) 02/23/23 01:45 Urine Bilirubin Negative (Negative) 02/23/23 01:45 Urine Urobilinogen 2.0 mg/dL (<2.0) 02/23/23 01:45 Ur Leukocyte Esterase Negative (Negative) 02/23/23 01:45 Urine RBC 2 /hpf (0-5) 02/23/23 01:45 Urine WBC 2 /hpf (0-5) 02/23/23 01:45 Ur Squamous Epith Cells <1 /hpf (0-4) 02/23/23 01:45 Urine Mucus Many /hpf (None) H 02/23/23 01:45 Urine Opiates Screen Negative (Negative) 02/22/23 12:29 Urine Methadone Screen Negative (Negative) 02/22/23 12:29 Ur Propoxyphene Screen Negative (Negative) 02/22/23 12:29 Urine Barbiturates Negative (Negative) 02/22/23 12:29 Ur Phencyclidine Scrn Negative (Negative) 02/22/23 12:29 Ur Amphetamine Screen Negative (Negative) 02/22/23 12:29 U Benzodiazepines Scrn Negative (Negative) 02/22/23 12:29 Urine Cocaine Screen Negative (Negative) 02/22/23 12:29 U Cannabinoids Screen Positive (Negative) A 02/22/23 12:29 Urine Alcohol Negative (Negative) 02/22/23 12:29 Coronavirus (PCR) Not Detected (Not Detectd) 02/23/23 00:45 Assessment Schizophrenia Plan: -Patient continues to meet criteria for inpatient psychiatric admission for symptom stabilization and safety. Patient has signed adult voluntary form and medication consent and was placed in patient's chart. -Medications: Continue Haldol 5 mg by mouth twice a day for schizophrenia. We will administer Haldol Decanoate 100 mg IM tomorrow pending EKG results. Continue Remeron 30 mg by mouth at bedtime for depression/insomnia/appetite stimulation Continue Suboxone -When necessary Ativan and Haldol for agitation/aggression. -NRT - nicotine patch -SW on board for discharge planning. Encouraged the patient to participate in milieu.
[2023-02-25 12:21] LABS: ALT 86 U/L (4-49); AST 68 U/L (17-59); African American GFR (CKD) >90 (>60 ml/min/1.73 sqM); Albumin 4.9 g/dL (3.5-5.0); Alkaline Phosphatase 54 U/L (38-126); Anion Gap 10 mmol/L; Blood Urea Nitrogen 15 mg/dL (9-20); Calcium 10.1 mg/dL (8.4-10.2); Carbon Dioxide 27 mmol/L (22-30); Chloride 102 mmol/L (98-107); Glucose 96 mg/dL (74-99); Non-African American GFR(CKD) >90 (>60 ml/min/1.73 sqM); Sodium 139 mmol/L (137-145); Total Bilirubin 0.6 mg/dL (0.2-1.3); Total Protein 7.9 g/dL (6.3-8.2)
[2023-02-25] MEDS ORDERED: cefTRIAXone 500 MG VIAL IM STA (15:50)
[2023-02-25] MEDS ORDERED: metroNIDAZOLE 500 MG TAB PO STA (15:50)
[2023-02-25] MEDS: PROPRANOLOL 20 MG TAB PO SCH (20:26)
[2023-02-25] MEDS: MIRTAZAPINE 15 MG TAB PO SCH (20:26)
[2023-02-25] MEDS ORDERED: LORazepam 1 MG TAB PO STA (21:15)
[2023-02-26] MEDS: MULTIVITAMINS, THERA 1 EACH TAB PO SCH (08:13)
[2023-02-26] MEDS: PANTOPRAZOLE 40 MG TABLET PO SCH (08:13)
[2023-02-26] MEDS: haloperidoL 5 MG TAB PO SCH ×2 (08:13→19:55)
[2023-02-26] MEDS: PROPRANOLOL 10 MG TAB PO SCH (08:14)
[2023-02-26] MEDS: BUPRENORPHINE-NALOX 8-2 MG TAB 1 EACH TAB.SUBL SL SCH (09:02)
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
[2023-02-26] MEDS: LORazepam 1 MG TAB PO PRN (15:00)
[2023-02-26] MEDS: MIRTAZAPINE 15 MG TAB PO SCH (19:54)
[2023-02-26] MEDS: PROPRANOLOL 20 MG TAB PO SCH (19:55)
[2023-02-27] MEDS: PROPRANOLOL 10 MG TAB PO SCH (07:57)
[2023-02-27] MEDS: PANTOPRAZOLE 40 MG TABLET PO SCH (07:58)
[2023-02-27] MEDS: MULTIVITAMINS, THERA 1 EACH TAB PO SCH (07:58)
[2023-02-27] MEDS: haloperidoL 5 MG TAB PO SCH ×2 (07:58→19:47)
[2023-02-27] MEDS: SERTRALINE 50 MG TAB PO SCH (07:58)
[2023-02-27] MEDS: LORazepam 1 MG TAB PO PRN (07:58)
[2023-02-27] MEDS: BUPRENORPHINE-NALOX 8-2 MG TAB 1 EACH TAB.SUBL SL SCH (08:24)
[2023-02-27] MEDS: MIRTAZAPINE 15 MG TAB PO SCH (19:46)
[2023-02-27] MEDS: PROPRANOLOL 20 MG TAB PO SCH (19:46)
[2023-02-28] MEDS: SERTRALINE 50 MG TAB PO SCH (07:42)
[2023-02-28] MEDS: PROPRANOLOL 10 MG TAB PO SCH (07:43)
[2023-02-28] MEDS: LORazepam 1 MG TAB PO PRN (07:43)
[2023-02-28] MEDS: PANTOPRAZOLE 40 MG TABLET PO SCH (07:43)
[2023-02-28] MEDS: haloperidoL 5 MG TAB PO SCH ×2 (07:43→19:34)
[2023-02-28] MEDS: MULTIVITAMINS, THERA 1 EACH TAB PO SCH (07:43)
[2023-02-28] MEDS: BUPRENORPHINE-NALOX 8-2 MG TAB 1 EACH TAB.SUBL SL SCH (08:12)
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
[2023-02-28] MEDS: MIRTAZAPINE 15 MG TAB PO SCH (19:34)
[2023-02-28] MEDS: PROPRANOLOL 20 MG TAB PO SCH (19:34)
[2023-03-01] MEDS: haloperidoL 5 MG TAB PO SCH ×2 (07:59→19:35)
[2023-03-01] MEDS: MULTIVITAMINS, THERA 1 EACH TAB PO SCH (08:00)
[2023-03-01] MEDS: PANTOPRAZOLE 40 MG TABLET PO SCH (08:00)
[2023-03-01] MEDS: PROPRANOLOL 10 MG TAB PO SCH (08:00)
[2023-03-01] MEDS: SERTRALINE 50 MG TAB PO SCH (08:00)
[2023-03-01] MEDS: BUPRENORPHINE-NALOX 8-2 MG TAB 1 EACH TAB.SUBL SL SCH (08:11)
[2023-03-01] MEDS: hydrOXYzine pamoate 25 MG CAP PO PRN ×2 (11:36→19:35)
[2023-03-01] MEDS: LORazepam 1 MG TAB PO PRN (12:08)
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
[2023-03-01] MEDS: MIRTAZAPINE 15 MG TAB PO SCH (19:35)
[2023-03-01] MEDS: PRAZOSIN 1 MG CAP PO SCH (19:35)
[2023-03-01] MEDS: PROPRANOLOL 20 MG TAB PO SCH (19:36)
[2023-03-02] MEDS: SERTRALINE 50 MG TAB PO SCH (08:19)
[2023-03-02] MEDS: haloperidoL 5 MG TAB PO SCH ×2 (08:19→20:05)
[2023-03-02] MEDS: BUPRENORPHINE-NALOX 8-2 MG TAB 1 EACH TAB.SUBL SL SCH (08:20)
[2023-03-02] MEDS: PANTOPRAZOLE 40 MG TABLET PO SCH (08:20)
[2023-03-02] MEDS: MULTIVITAMINS, THERA 1 EACH TAB PO SCH (08:20)
[2023-03-02] MEDS: PROPRANOLOL 10 MG TAB PO SCH (08:20)
[2023-03-02] MEDS: LORazepam 1 MG TAB PO PRN (09:25)
--- NOTE | 2023-03-02 11:47 | P.PN ---
Progress Note - Text Progress Note Date: 03/02/23 Interval History: Patient was seen wandering the hallways and was directable and agreeable to speak with travel writer in the office. Currently, the patient reports that he feels significant better since the addition of Zoloft and prazosin. He reports that he did not experience any concerns for nightmares last night. He reports that he has been feeling safe. He states that this is "the best ever felt in a long time." He is denying any suicidal or homicidal ideation, intention, and/or plan. He is not reporting any auditory or visual hallucinations. He reports no overt paranoia or other delusions. He has been adherent with his medications and is not endorsing any significant side effects. Mental Status Exam: General Appearance: Patient appears to be stated age is alert, directable, and cooperative. Behavior: Patient is calmly seated without any agitated behavior. Speech: Patient's speech is fluent and nonpressured. Mood/Affect: Mood is "I feel really good." affect is congruent and bright. Suicidality/Homicidality: Patient denies having any suicidal or homicidal ideation intent or plan. Perceptions: Patient denies any visual hallucinations and denies any auditory hallucinations Though content/process: He continues to report fear directed towards his family. Memory and concentration: AOX3, grossly intact for the purposes of this session Judgment and insight: Mildly improving Vital Signs Temp 98.5 F 03/02/23 06:33 Pulse 79 03/02/23 09:27 Resp 16 03/02/23 06:33 BP 136/93 03/02/23 09:27 Pulse Ox 98 03/02/23 06:33 FiO2 Laboratory Results WBC 5.9 k/uL (3.8-10.6) 02/24/23 11:09 RBC 5.06 m/uL (4.30-5.90) 02/24/23 11:09 Hgb 15.4 gm/dL (13.0-17.5) 02/24/23 11:09 Hct 45.4 % (39.0-53.0) 02/24/23 11:09 MCV 89.7 fL (80.0-100.0) 02/24/23 11:09 MCH 30.5 pg (25.0-35.0) 02/24/23 11:09 MCHC 34.0 g/dL (31.0-37.0) 02/24/23 11:09 RDW 15.2 % (11.5-15.5) 02/24/23 11:09 Plt Count 235 k/uL (150-450) 02/24/23 11:09 MPV 10.5 02/24/23 11:09 Neutrophils % 63 % 02/24/23 11:09 Lymphocytes % 27 % 02/24/23 11:09 Monocytes % 5 % 02/24/23 11:09 Eosinophils % 2 % 02/24/23 11:09 Basophils % 0 % 02/24/23 11:09 Neutrophils # 3.7 k/uL (1.3-7.7) 02/24/23 11:09 Lymphocytes # 1.6 k/uL (1.0-4.8) 02/24/23 11:09 Monocytes # 0.3 k/uL (0-1.0) 02/24/23 11:09 Eosinophils # 0.1 k/uL (0-0.7) 02/24/23 11:09 Basophils # 0.0 k/uL (0-0.2) 02/24/23 11:09 Sodium 139 mmol/L (137-145) 02/25/23 11:27 Potassium 5.0 mmol/L (3.5-5.1) 02/25/23 11:27 Chloride 102 mmol/L (98-107) 02/25/23 11:27 Carbon Dioxide 27 mmol/L (22-30) 02/25/23 11:27 Anion Gap 10 mmol/L 02/25/23 11:27 BUN 15 mg/dL (9-20) 02/25/23 11:27 Creatinine 0.93 mg/dL (0.66-1.25) 02/25/23 11:27 Est GFR (CKD-EPI)AfAm >90 (>60 ml/min/1.73 sqM) 02/25/23 11:27 Est GFR (CKD-EPI)NonAf >90 (>60 ml/min/1.73 sqM) 02/25/23 11:27 Glucose 96 mg/dL (74-99) 02/25/23 11:27 Calcium 10.1 mg/dL (8.4-10.2) 02/25/23 11:27 Total Bilirubin 0.6 mg/dL (0.2-1.3) 02/25/23 11:27 Conjugated Bilirubin 0.0 mg/dL (0.0-0.3) 02/24/23 11:09 Unconjugated Bilirubin 0.2 mg/dL (0.0-1.1) 02/24/23 11:09 Delta Bilirubin 0.1 mg/dL (0.0-0.2) 02/24/23 11:09 AST 68 U/L (17-59) H 02/25/23 11:27 ALT 86 U/L (4-49) H 02/25/23 11:27 Alkaline Phosphatase 54 U/L (38-126) 02/25/23 11:27 Total Protein 7.9 g/dL (6.3-8.2) 02/25/23 11: Albumin 4.9 g/dL (3.5-5.0) 02/25/23 11:27 Triglycerides 111.00 mg/dL (0.00-149.00) 02/24/23 11:09 Cholesterol 224.00 mg/dL (0.00-200.00) H 02/24/23 11:09 LDL Cholesterol, Calc 144.8 mg/dL (0.0-131.0) H 02/24/23 11:09 VLDL Cholesterol, Calc 22.20 mg/dL (5.00-40.00) 02/24/23 11:09 HDL Cholesterol 57.00 mg/dL (40.00-60.00) 02/24/23 11:09 Cholesterol/HDL Ratio 3.93 Ratio 02/24/23 11:09 TSH 1.200 mIU/L (0.465-4.680) 02/24/23 11:09 Urine Color Yellow 02/23/23 01:45 Urine Appearance Clear (Clear) 02/23/23 01:45 Urine pH 6.0 (5.0-8.0) 02/23/23 01:45 Ur Specific [place] 1.019 (1.001-1.035) 02/23/23 01:45 Urine Protein Trace (Negative) H 02/23/23 01:45 Urine Glucose (UA) Negative (Negative) 02/23/23 01:45 Urine Ketones 1+ (Negative) H 02/23/23 01:45 Urine Blood Trace (Negative) H 02/23/23 01:45 Urine Nitrite Negative (Negative) 02/23/23 01:45 Urine Bilirubin Negative (Negative) 02/23/23 01:45 Urine Urobilinogen 2.0 mg/dL (<2.0) 02/23/23 01:45 Ur Leukocyte Esterase Negative (Negative) 02/23/23 01:45 Urine RBC 2 /hpf (0-5) 02/23/23 01:45 Urine WBC 2 /hpf (0-5) 02/23/23 01:45 Ur Squamous Epith Cells <1 /hpf (0-4) 02/23/23 01:45 Urine Mucus Many /hpf (None) H 02/23/23 01:45 Urine Opiates Screen Negative (Negative) 02/22/23 12:29 Urine Methadone Screen Negative (Negative) 02/22/23 12:29 Ur Propoxyphene Screen Negative (Negative) 02/22/23 12:29 Urine Barbiturates Negative (Negative) 02/22/23 12:29 Ur Phencyclidine Scrn Negative (Negative) 02/22/23 12:29 Ur Amphetamine Screen Negative (Negative) 02/22/23 12:29 U Benzodiazepines Scrn Negative (Negative) 02/22/23 12:29 Urine Cocaine Screen Negative (Negative) 02/22/23 12:29 U Cannabinoids Screen Positive (Negative) A 02/22/23 12:29 Urine Alcohol Negative (Negative) 02/22/23 12:29 Coronavirus (PCR) Not Detected (Not Detectd) 02/23/23 00:45 Assessment Schizophrenia Posttraumatic stress disorder Plan: -Patient continues to meet criteria for inpatient psychiatric admission for symptom stabilization and safety. Patient has signed adult voluntary form and medication consent and was placed in patient's chart. Patient is anticipated to be discharged to [facility] tomorrow. -Ongoing investigation regarding the patient's family and the concern for the patient's safety. Authorities made aware. APS investigating as well. -Medications: Continue Haldol 5 mg by mouth twice a day for psychosis. Continue Remeron 30 mg by mouth at bedtime for depression/insomnia/upset stimulation Continue Zoloft 100 mg by mouth daily for depression/anxiety/PTSD Continue prazosin 2 mg by mouth at bedtime for PTSD related nightmares Continue Suboxone -When necessary Ativan and Haldol for agitation/aggression. -NRT - nicotine patch -SW on board for discharge planning. Encouraged the patient to participate in milieu.
[2023-03-02] MEDS: PRAZOSIN 1 MG CAP PO SCH (20:05)
[2023-03-02] MEDS: PROPRANOLOL 20 MG TAB PO SCH (20:05)
[2023-03-02] MEDS: hydrOXYzine pamoate 25 MG CAP PO PRN (20:05)
[2023-03-02] MEDS: MIRTAZAPINE 15 MG TAB PO SCH (20:06)
[2023-03-03 06:58] VITALS: BP 130/72; PULSE 67; RESP 14; TEMP 98.3
[2023-03-03] MEDS: PANTOPRAZOLE 40 MG TABLET PO SCH (08:12)
[2023-03-03] MEDS: haloperidoL 5 MG TAB PO SCH (08:12)
[2023-03-03] MEDS: SERTRALINE 50 MG TAB PO SCH (08:12)
[2023-03-03] MEDS: PROPRANOLOL 10 MG TAB PO SCH (08:12)
[2023-03-03] MEDS: MULTIVITAMINS, THERA 1 EACH TAB PO SCH (08:12)
[2023-03-03] MEDS: BUPRENORPHINE-NALOX 8-2 MG TAB 1 EACH TAB.SUBL SL SCH (08:13)
[2023-03-03] MEDS: hydrOXYzine pamoate 25 MG CAP PO PRN (10:43)
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
== END 2023-03-03 14:19 | disposition home or self-care (01) | DRG 750 ==
LOC: EC 11:19 → 3MHU 02-23 01:28
PROVIDERS: ADMIT Psychiatry & Neurology Psychiatry; ATTEND Psychiatry & Neurology Psychiatry
DX: F20.9 Schizophrenia, unspecified (principal); F41.1 Generalized anxiety disorder; F43.10 Post-traumatic stress disorder, unspecified; F90.9 Attention-deficit hyperactivity disorder, unspecified type; R94.5 Abnormal results of liver function studies; Z20.822 Contact with and (suspected) exposure to COVID-19; Z28.311 Partially vaccinated for COVID-19; Z71.89 Other specified counseling; Z28.21 Immunization not carried out because of patient refusal; Z91.52 Personal history of nonsuicidal self-harm; Z86.19 Personal history of other infectious and parasitic diseases; E78.5 Hyperlipidemia, unspecified; Z88.2 Allergy status to sulfonamides; Z88.8 Allergy status to other drugs, medicaments and biological substances; T76.21XA Adult sexual abuse, suspected, initial encounter; Z79.899 Other long term (current) drug therapy
CPT/HCPCS: 80053; 80061; 80306; 81001; 82248; 84443; 85025; 87635; 99285

== ENCOUNTER 2023-04-01 14:31 | Emergency (ER) | payer OTHER ==
[2023-04-01 16:26] LABS: Glucose,Whole Blood 133 mg/dL (70-110)
[2023-04-01] MEDS ORDERED: AMOXIC-POT CLAV 875-125MG 1 EACH TAB PO STA (16:38)
[2023-04-01] MEDS ORDERED: ACETAMINOPHEN TAB 325 MG TAB PO STA (16:38)
--- NOTE | 2023-04-01 16:42 | ED ---
General Adult HPI - General Chief complaint: Dental/Oral Stated complaint: dental pain Time Seen by Provider: 04/01/23 15:47 Source: patient, RN notes reviewed Mode of arrival: ambulatory - History of Present Illness Initial comments: 32-year-old male presents to the emergency department with chief complaint of dental pain. Patient states that he has a history of dental pain but it has been getting worse for the past 2-3 days. He states that he is going to see his dentist in 4 days. Denies fever, chills. Denies any drainage from the area. Denies any other symptoms at this time. Past medical history includes PTSD, schizophrenia. Patient follows with the [facility] [place] for primary [facility]. Patient is unsure what his drug allergies are, but he states that he has taken amoxicillin and Augmentin without a problem in the past. - Related Data Previous Rx's Medication Instructions Recorded Multivitamins, Thera [Multivitamin 1 tab PO DAILY 30 Days tab 05/22/22 (formulary)] Omeprazole 20 mg PO DAILY 30 Days cap 05/22/22 Propranolol [Inderal] 10 mg PO DAILY 30 Days #30 tab 02/17/23 Propranolol [Inderal] 20 mg PO HS 30 Days #30 tab 02/17/23 Mirtazapine [Remeron] 30 mg PO HS 30 Days #30 tab 03/03/23 Prazosin [Minipress] 2 mg PO HS 30 Days #30 cap 03/03/23 Sertraline [Zoloft] 100 mg PO DAILY 30 Days #60 tab 03/03/23 haloperidoL [Haldol] 5 mg PO BID 30 Days #60 tab 03/03/23 Buprenorphine HCl/Naloxone HCl 1.5 film SL DAILY 30 Days #45 film 03/04/23 [Suboxone 8 mg-2 mg Sl Film] Amoxic-Pot Clav 875-125Mg 1 tab PO Q12HR 7 Days #14 tab 04/01/23 [Augmentin 875-125] Allergies Allergy/AdvReac Type Severity Reaction Status Date / Time sulfamethoxazole Allergy Itching Verified 04/01/23 15:40 [From Bactrim] tramadol Allergy Unknown Verified 04/01/23 15:40 trimethoprim [From Bactrim] Allergy Itching Verified 04/01/23 15:40 fluphenazine [From Prolixin] AdvReac knees get Verified 04/01/23 15:40 shaky fluvoxamine maleate AdvReac Nausea & Verified 04/01/23 15:40 [From Luvox] Vomiting gabapentin AdvReac Addiction Verified 04/01/23 15:40 issues Review of Systems ROS Statement: Those systems with pertinent positive or pertinent negative responses have been documented in the HPI. ROS Other: All systems not noted in ROS Statement are negative. Past Medical History Additional Past Medical History / Comment(s): Schizophrenia, PTSD, generalized anxiety disorder, major depressive disorder with psychosis, ADHD, cutting, hepatitis C History of Any Multi-Drug Resistant Organisms: None Reported Past Surgical History: No Surgical Hx Reported Past Anesthesia/Blood Transfusion Reactions: No Reported Reaction Past Psychological History: ADD/ADHD, Anxiety, Depression, PTSD, Schizophrenia Smoking Status: Current every day smoker, Former smoker Past Alcohol Use History: None Reported Past Drug Use History: Marijuana - Past Family History Father Family Medical History: No Reported History Mother Family Medical History: Liver Disease Additional Family Medical History / Comment(s): Patient is single and does not have any children. General Exam General appearance: alert, in no apparent distress Head exam: Present: atraumatic, normocephalic, normal inspection Eye exam: Present: normal appearance, PERRL, EOMI. Absent: scleral icterus, conjunctival injection, periorbital swelling ENT exam: Present: other (Multiple dental caries, mild cheek swelling bilaterally) Neck exam: Present: normal inspection. Absent: tenderness, meningismus, lymphadenopathy Respiratory exam: Present: normal lung sounds bilaterally. Absent: respiratory distress, wheezes, rales, rhonchi, stridor Cardiovascular Exam: Present: regular rate, normal rhythm, normal heart sounds. Absent: systolic murmur, diastolic murmur, rubs, gallop, clicks GI/Abdominal exam: Present: soft, normal bowel sounds. Absent: distended, tenderness, guarding, rebound, rigid Extremities exam: Present: normal inspection, full ROM, normal capillary refill. Absent: tenderness, pedal edema, joint swelling, calf tenderness Back exam: Present: normal inspection Neurological exam: Present: alert, oriented X3 Psychiatric exam: Present: normal affect, normal mood Skin exam: Present: warm, dry, intact, normal color. Absent: rash Course Vital Signs 04/01/23 15:36 Temperature 98.2 F Pulse Rate 98 Respiratory 18 Rate Blood Pressure 157/110 O2 Sat by Pulse 98 Oximetry Medical Decision Making - Medical Decision Making Was pt. sent in by a medical professional or institution (DOROTHY Crandall, MATERIAL DAMAGE APPRAISER, urgent care, hospital, or senior care...) When possible be specific @ -No Did you speak to anyone other than the patient for history (EMS, parent, family, police, friend...)? What history was obtained from this source @ -No Did you review nursing and triage notes (agree or disagree)? Why? @ -I reviewed and agree with nursing and triage notes Were old charts reviewed (outside hosp., previous admission, EMS record, old EKG, old radiological studies, urgent care reports/EKG's, senior care records)? Report findings @ -No old charts were reviewed Differential Diagnosis (chest pain, altered mental status, abdominal pain women, abdominal pain men, vaginal bleeding, weakness, fever, dyspnea, syncope, headache, dizziness, GI bleed, back pain, seizure, CVA, palpatations, mental health, musculoskeletal)? @ -Dental caries, dental infection, dental abscess, this list is not all- inclusive EKG interpreted by me (3pts min.). @ -None X-rays interpreted by me (1pt min.). @ -None done CT interpreted by me (1pt min.). @ -None done U/S interpreted by me (1pt. min.). @ -None done What testing was considered but not performed or refused? (CT, X-rays, U/S, lab s)? Why? @ -None What meds were considered but not given or refused? Why? @ -None Did you discuss the management of the patient with other professionals (professionals i.e. DOROTHY Crandall, MATERIAL DAMAGE APPRAISER, lab, RT, psych nurse, nursing home social worker, film printer, teacher, stream control officer, case consultant)? Give summary @ -No Was smoking cessation discussed for >3mins.? @ -No Was critical care preformed (if so, how long)? @ -No Were there social determinants of health that impacted care today? How? (Homelessness, low income, unemployed, alcoholism, drug addiction, transportation, low edu. Level, literacy, decrease access to med. care, shelter, rehab)? @ -No Was there de-escalation of care discussed even if they declined (Discuss DNR or withdrawal of care, Hospice)? DNR status @ -No What co-morbidities impacted this encounter? (DM, HTN, Smoking, COPD, CAD, Cancer, CVA, ARF, Chemo, Hep., AIDS, mental health diagnosis, sleep apnea, morbid obesity)? @ -None Was patient admitted / discharged? Hospital course, mention meds given and route, prescriptions, significant lab abnormalities, going to OR and other pertinent info. @ -Discharged. Patient presented to emergency department chief complaint of dental pain. Patient states that it has been worsening in the past 2-3 days and he has been treated for multiple dental infections in the past. On examination, patient is multiple dental caries with pain bilaterally, there is no visible abscess. Patient was administered Tylenol and Augmentin here in the emergency department. Prescription was sent to his pharmacy for Augmentin. Patient advised to take antibiotics to completion and return to the emergency department for any new or worsening symptoms. Patient discharged in stable condition. Case discussed with my attending, Dr. Arriola Undiagnosed new problem with uncertain prognosis? @ -No Drug Therapy requiring intensive monitoring for toxicity (Heparin, Nitro, Insulin, Cardizem)? @ -No Were any procedures done? @ -No Diagnosis/symptom? @ -dental infection Acute, or Chronic, or Acute on Chronic? @ -acute Uncomplicated (without systemic symptoms) or Complicated (systemic symptoms)? @ -uncomplicated Side effects of treatment? @ -No Exacerbation, Progression, or Severe Exacerbation? @ -No Poses a threat to life or bodily function? How? (Chest pain, [place], [place], pneumonia, PE, COPD, DKA, ARF, appy, cholecystitis, CVA, Diverticulitis, Homicidal, Suicidal, threat to staff... and all critical care pts) @ -No - Lab Data Lab Results 04/01/23 Range/Units 16:25 POC Glucose (mg/dL) 133 H (70-110) mg/dL POC [employer] Senior Recruiter ID [place] Disposition Clinical Impression: Infected dental caries Disposition: HOME SELF-CARE Condition: Stable Instructions (If sedation given, give patient instructions): Toothache (ED) Additional Instructions: Please take antibiotics until completion. [facility]. Please return to the emergency department for new or worsening symptoms. Prescriptions: Amoxic-Pot Clav 875-125Mg [Augmentin 875-125] 1 tab PO Q12HR 7 Days #14 tab Is patient prescribed a controlled substance at d/c from ED?: No Referrals: [facility] [Primary Care Provider] - 1-2 days Time of Disposition: 16:42
[2023-04-01 17:19] VITALS: BP 145/89; PULSE 90; RESP 16; TEMP 98
== END 2023-04-01 17:19 | disposition home or self-care (01) ==
LOC: EC 14:31
DX: K02.9 Dental caries, unspecified (principal); F17.200 Nicotine dependence, unspecified, uncomplicated; F12.90 Cannabis use, unspecified, uncomplicated; Z86.59 Personal history of other mental and behavioral disorders; Z88.2 Allergy status to sulfonamides; Z88.1 Allergy status to other antibiotic agents; Z88.5 Allergy status to narcotic agent; Z88.8 Allergy status to other drugs, medicaments and biological substances
CPT/HCPCS: 36415; 99283

== ENCOUNTER 2023-04-19 16:40 | Inpatient (IN) | payer MEDICAID, OTHER ==
--- NOTE | 2023-04-19 17:33 | ED ---
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 Patient states he did run away from his snf. Patient states he did return to his snf. Patient states the police did show up there secondary to a pickup order. Patient denies suicidal or homicidal thoughts. No hallucinations. No physical complaints. - Related Data Previous Rx's Medication Instructions Recorded Multivitamins, Thera [Multivitamin 1 tab PO DAILY 30 Days tab 05/22/22 (formulary)] Omeprazole 20 mg PO DAILY 30 Days cap 05/22/22 Propranolol [Inderal] 10 mg PO DAILY 30 Days #30 tab 02/17/23 Propranolol [Inderal] 20 mg PO HS 30 Days #30 tab 02/17/23 Mirtazapine [Remeron] 30 mg PO HS 30 Days #30 tab 03/03/23 Prazosin [Minipress] 2 mg PO HS 30 Days #30 cap 03/03/23 Sertraline [Zoloft] 100 mg PO DAILY 30 Days #60 tab 03/03/23 haloperidoL [Haldol] 5 mg PO BID 30 Days #60 tab 03/03/23 Buprenorphine HCl/Naloxone HCl 1.5 film SL DAILY 30 Days #45 film 03/04/23 [Suboxone 8 mg-2 mg Sl Film] Amoxic-Pot Clav 875-125Mg 1 tab PO Q12HR 7 Days #14 tab 04/01/23 [Augmentin 875-125] Allergies Allergy/AdvReac Type Severity Reaction Status Date / Time sulfamethoxazole Allergy Itching Verified 04/19/23 16:57 [From Bactrim] tramadol Allergy Unknown Verified 04/19/23 16:57 trimethoprim [From Bactrim] Allergy Itching Verified 04/19/23 16:57 fluphenazine [From Prolixin] AdvReac knees get Verified 04/19/23 16:57 shaky fluvoxamine maleate AdvReac Nausea & Verified 04/19/23 16:57 [From Luvox] Vomiting gabapentin AdvReac Addiction Verified 04/19/23 16:57 issues Review of Systems ROS Statement: Those systems with pertinent positive or pertinent negative responses have been documented in the HPI. ROS Other: All systems not noted in ROS Statement are negative. Constitutional: Denies: fever Eyes: Denies: eye pain ENT: Denies: ear pain Respiratory: Denies: cough, dyspnea Cardiovascular: Denies: chest pain Endocrine: Denies: fatigue Gastrointestinal: Denies: abdominal pain Genitourinary: Denies: urgency Musculoskeletal: Denies: back pain Skin: Denies: rash Neurological: Denies: headache Psychiatric: Denies: auditory hallucinations, visual hallucinations, homicidal thoughts, suicidal thoughts Past Medical History Additional Past Medical History / Comment(s): Schizophrenia, PTSD, generalized anxiety disorder, major depressive disorder with psychosis, ADHD, cutting, hepatitis C History of Any Multi-Drug Resistant Organisms: None Reported Past Surgical History: No Surgical Hx Reported Past Anesthesia/Blood Transfusion Reactions: No Reported Reaction Past Psychological History: ADD/ADHD, Anxiety, Depression, PTSD, Schizophrenia Smoking Status: Current every day smoker, Former smoker Past Alcohol Use History: None Reported Past Drug Use History: Marijuana - Past Family History Father Family Medical History: No Reported History Mother Family Medical History: Liver Disease Additional Family Medical History / Comment(s): Patient is single and does not have any children. General Exam Limitations: no limitations General appearance: alert, in no apparent distress Head exam: Present: normocephalic Eye exam: Present: normal appearance Neck exam: Present: normal inspection Respiratory exam: Present: normal lung sounds bilaterally Cardiovascular Exam: Present: regular rate, normal rhythm GI/Abdominal exam: Present: soft. Absent: tenderness Extremities exam: Present: normal inspection. Absent: pedal edema, calf tenderness Neurological exam: Present: alert Psychiatric exam: Present: normal affect, normal mood Skin exam: Present: normal color. Absent: abrasion Course Vital Signs 04/19/23 16:53 Temperature 98.0 F Pulse Rate 106 H Respiratory 18 Rate Blood Pressure 161/89 O2 Sat by Pulse 98 Oximetry Medical Decision Making - Medical Decision Making Was pt. sent in by a medical professional or institution (, PA, WELCOME HOSTESS, urgent care, hospital, or prison...) When possible be specific @ -Patient was sent in by [facility] Did you speak to anyone other than the patient for history (EMS, parent, family, police, friend...)? What history was obtained from this source @ -Please officer so provide history Did you review nursing and triage notes (agree or disagree)? Why? @ -I reviewed and agree with nursing and triage notes Were old charts reviewed (outside hosp., previous admission, EMS record, old EKG, old radiological studies, urgent care reports/EKG's, prison records)? Report findings @ -Edition reviewed Differential Diagnosis (chest pain, altered mental status, abdominal pain women, abdominal pain men, vaginal bleeding, weakness, fever, dyspnea, syncope, headache, dizziness, GI bleed, back pain, seizure, CVA, palpatations, mental health)? @ -not applicable EKG interpreted by me (3pts min.). @ -As above X-rays interpreted by me (1pt min.). @ -None done CT interpreted by me (1pt min.). @ -None done U/S interpreted by me (1pt. min.). @ -None done What testing was considered but not performed or refused? (CT, X-rays, U/S, labs)? Why? @ -None What meds were considered but not given or refused? Why? @ -None Did you discuss the management of the patient with other professionals (professionals i.e. , PA, WELCOME HOSTESS, lab, RT, psych nurse, social media assistant, bridal stylist sales consultant, teacher, budget officer, pillowcase maker)? Give summary @ -cAce discussed with mental health nurse who will admit. Was smoking cessation discussed for >3mins.? @ -No Was critical care preformed (if so, how long)? @ -No Were there social determinants of health that impacted care today? How? (Homelessness, low income, unemployed, alcoholism, drug addiction, transportation, low edu. Level, literacy, decrease access to med. care, intermediate, rehab)? @ -No Was there de-escalation of care discussed even if they declined (Discuss DNR or withdrawal of care, Hospice)? DNR status @ -No What co-morbidities impacted this encounter? (DM, HTN, Smoking, COPD, CAD, Cancer, CVA, ARF, Chemo, Hep., AIDS, mental health diagnosis, sleep apnea, morbid obesity)? @ -None Was patient admitted / discharged? Hospital course, mention meds given and route, prescriptions, significant lab abnormalities, going to OR and other pertinent info. @ -Patient seen by mental health nurse with plans for admission. Positive clinical certificate completed. Undiagnosed new problem with uncertain prognosis? @ -No Drug Therapy requiring intensive monitoring for toxicity (Heparin, Nitro, Insulin, Cardizem)? @ -No Were any procedures done? @ -No Diagnosis/symptom? @ -Psychosis Acute, or Chronic, or Acute on Chronic? @ -Acute Uncomplicated (without systemic symptoms) or Complicated (systemic symptoms)? @ -default Side effects of treatment? @ -No Exacerbation, Progression, or Severe Exacerbation? @ -No Poses a threat to life or bodily function? How? (Chest pain, [place], [place], pneumonia, PE, COPD, DKA, ARF, appy, cholecystitis, CVA, Diverticulitis, Homicidal, Liz cidal, threat to staff... and all critical care pts) @ -No - Lab Data Result diagrams: 04/19/23 18:29 Lab Results 04/19/23 04/19/23 04/19/23 Range/Units 18:00 18:00 18:29 Sodium (137-145) mmol/L Potassium (3.5-5.1) mmol/L Chloride (98-107) mmol/L Carbon Dioxide (22-30) mmol/L Anion Gap mmol/L BUN (9-20) mg/dL Creatinine (0.66-1.25) mg/dL Est GFR (CKD-EPI)AfAm (>60 ml/min/1.73 sqM) Est GFR (CKD-EPI)NonAf (>60 ml/min/1.73 sqM) Glucose (74-99) mg/dL Calcium (8.4-10.2) mg/dL Total Bilirubin (0.2-1.3) mg/dL AST (17-59) U/L ALT (4-49) U/L Alkaline Phosphatase (38-126) U/L Total Protein (6.3-8.2) g/dL Albumin (3.5-5.0) g/dL Urine Color Light Yellow Urine Appearance Clear (Clear) Urine pH 6.0 (5.0-8.0) Ur Specific [place] 1.005 (1.001-1.035) Urine Protein Negative (Negative) Urine Glucose (UA) Negative (Negative) Urine Ketones Negative (Negative) Urine Blood Negative (Negative) Urine Nitrite Negative (Negative) Urine Bilirubin Negative (Negative) Urine Urobilinogen <2.0 (<2.0) mg/dL Ur Leukocyte Esterase Negative (Negative) Urine Opiates Screen Detected H (NotDetected) Ur Oxycodone Screen Not Detected (NotDetected) Urine Methadone Screen Not Detected (NotDetected) Ur Propoxyphene Screen Not Detected (NotDetected) Ur Barbiturates Screen Not Detected (NotDetected) U Tricyclic Antidepress Not Detected (NotDetected) Ur Phencyclidine Scrn Not Detected (NotDetected) Ur Amphetamines Screen Not Detected (NotDetected) U Methamphetamines Scrn Not Detected (NotDetected) U Benzodiazepines Scrn Detected H (NotDetected) Urine Cocaine Screen Not Detected (NotDetected) U Marijuana (THC) Screen Detected H (NotDetected) Coronavirus (PCR) Not Detected (Not Detectd) 04/19/23 Range/Units 18:29 Sodium 141 (137-145) mmol/L Potassium 4.0 (3.5-5.1) mmol/L Chloride 106 (98-107) mmol/L Carbon Dioxide 25 (22-30) mmol/L Anion Gap 10 mmol/L BUN 13 (9-20) mg/dL Creatinine 1.00 (0.66-1.25) mg/dL Est GFR (CKD-EPI)AfAm >90 (>60 ml/min/1.73 sqM) Est GFR (CKD-EPI)NonAf >90 (>60 ml/min/1.73 sqM) Glucose 109 H (74-99) mg/dL Calcium 9.1 (8.4-10.2) mg/dL Total Bilirubin 0.3 (0.2-1.3) mg/dL AST 60 H (17-59) U/L ALT 39 (4-49) U/L Alkaline Phosphatase 54 (38-126) U/L Total Protein 6.8 (6.3-8.2) g/dL Albumin 4.3 (3.5-5.0) g/dL Urine Color Urine Appearance (Clear) Urine pH (5.0-8.0) Ur Specific [place] (1.001-1.035) Urine Protein (Negative) Urine Glucose (UA) (Negative) Urine Ketones (Negative) Urine Blood (Negative) Urine Nitrite (Negative) Urine Bilirubin (Negative) Urine Urobilinogen (<2.0) mg/dL Ur Leukocyte Esterase (Negative) Urine Opiates Screen (NotDetected) Ur Oxycodone Screen (NotDetected) Urine Methadone Screen (NotDetected) Ur Propoxyphene Screen (NotDetected) Ur Barbiturates Screen (NotDetected) U Tricyclic Antidepress (NotDetected) Ur Phencyclidine Scrn (NotDetected) Ur Amphetamines Screen (NotDetected) U Methamphetamines Scrn (NotDetected) U Benzodiazepines Scrn (NotDetected) Urine Cocaine Screen (NotDetected) U Marijuana (THC) Screen (NotDetected) Coronavirus (PCR) (Not Detectd) Disposition Clinical Impression: Acute psychosis Disposition: TRANSFER TO PSYCH HOSP/UNIT Is patient prescribed a controlled substance at d/c from ED?: No Referrals: [facility] [Primary Care Provider] - 1-2 days Time of Disposition: 19:48
[2023-04-19 18:43] LABS: Appearance,Urine Clear (Clear); Bilirubin,Urine Negative (Negative); Blood,Urine Negative (Negative); Color,Urine Light Yellow; Glucose,Urine (UA) Negative (Negative); Ketones,Urine Negative (Negative); Leukocyte Esterase,Urine Negative (Negative); Nitrite,Urine Negative (Negative); Protein,Urine Negative (Negative); Specific Gravity,Urine 1.005 (1.001-1.035); Urobilinogen,Urine <2.0 mg/dL (<2.0)
[2023-04-19 18:44] LABS: Amphetamine Screen,Urine Not Detected (NotDetected); Barbiturate Screen,Urine Not Detected (NotDetected); Benzodiazepines Screen,Urine Detected (NotDetected); Cocaine Screen,Urine Not Detected (NotDetected); Methadone Screen, Urine Not Detected (NotDetected); Opiate Screen,Urine Detected (NotDetected); Oxycodone Screen, Urine Not Detected (NotDetected); Phencyclidine Screen,Urine Not Detected (NotDetected); Tricyclic Antidepressant,Urine Not Detected (NotDetected); Urn Cannabinoid Scrn Detected (NotDetected)
[2023-04-19 19:19] LABS: ALT 39 U/L (4-49); AST 60 U/L (17-59); African American GFR (CKD) >90 (>60 ml/min/1.73 sqM); Albumin 4.3 g/dL (3.5-5.0); Alkaline Phosphatase 54 U/L (38-126); Anion Gap 10 mmol/L; Blood Urea Nitrogen 13 mg/dL (9-20); Calcium 9.1 mg/dL (8.4-10.2); Carbon Dioxide 25 mmol/L (22-30); Chloride 106 mmol/L (98-107); Glucose 109 mg/dL (74-99); Non-African American GFR(CKD) >90 (>60 ml/min/1.73 sqM); Sodium 141 mmol/L (137-145); Total Bilirubin 0.3 mg/dL (0.2-1.3); Total Protein 6.8 g/dL (6.3-8.2)
[2023-04-19] MEDS ORDERED: LORazepam 2 MG/ML INJ IM PRN (20:04)
[2023-04-19] MEDS ORDERED: LORazepam 1 MG TAB PO PRN (20:04)
[2023-04-19] MEDS ORDERED: MAG HYDROX/AL HYDROX/SIMETH 30 ML CUP PO PRN (20:04)
[2023-04-19] MEDS ORDERED: MAGNESIUM HYDROXIDE 2,400 MG/10 ML CUP PO PRN (20:04)
[2023-04-19] MEDS ORDERED: ACETAMINOPHEN TAB 325 MG TAB PO PRN (20:04)
[2023-04-19] MEDS ORDERED: haloperidoL 5 MG TAB PO PRN (20:04)
[2023-04-19] MEDS ORDERED: HALOPERIDOL LACTATE 5 MG/ML 1 ML VIAL IM PRN (20:04)
[2023-04-19] MEDS ORDERED: IBUPROFEN 600 MG TAB PO PRN (20:04)
[2023-04-19] MEDS: PRAZOSIN 1 MG CAP PO SCH (21:18)
[2023-04-19] MEDS: ATORVASTATIN 10 MG TAB PO SCH (21:18)
[2023-04-19] MEDS: risperiDONE 1 MG TAB PO SCH (21:18)
[2023-04-19] MEDS: MIRTAZAPINE 15 MG TAB PO SCH (21:19)
[2023-04-19] MEDS: PROPRANOLOL 10 MG TAB PO SCH (21:19)
[2023-04-20 01:57] LABS: Chol/HDL Ratio 3.59 Ratio; LDL Cholesterol,Calculated 98.4 mg/dL
[2023-04-20] MEDS: SERTRALINE 100 MG TAB PO SCH (08:15)
[2023-04-20] MEDS: NICOTINE 14MG/24HR PATCH TRANSDERM SCH (08:15)
[2023-04-20] MEDS: PROPRANOLOL 10 MG TAB PO SCH ×2 (08:16→19:39)
[2023-04-20] MEDS: PANTOPRAZOLE 40 MG TABLET PO SCH (08:16)
[2023-04-20] MEDS: CHOLECALCIFEROL 25 MCG (1000 IU) TABLET PO SCH (08:16)
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
[2023-04-20 16:04] LABS: Basophils % (A) 0 %; Eosinophils # (A) 0.1 k/uL (0-0.7); Eosinophils % (A) 1 %; HGB 14.7 gm/dL (13.0-17.5); Lymphocytes # (A) 1.7 k/uL (1.0-4.8); Lymphocytes % (A) 14 %; MCH 29.2 pg (25.0-35.0); MCV 91.3 fL (80.0-100.0); Mean Platelet Volume 9.8; Monocytes # (A) 0.5 k/uL (0-1.0); Monocytes % (A) 4 %; Neutrophils # (A) 10.1 k/uL (1.3-7.7); Neutrophils % (A) 81 %; Platelet Count 229 k/uL (150-450); RBC 5.03 m/uL (4.30-5.90); RDW 14.4 % (11.5-15.5); WBC 12.5 k/uL (3.8-10.6)
[2023-04-20] MEDS: PRAZOSIN 1 MG CAP PO SCH (19:39)
[2023-04-20] MEDS: risperiDONE 1 MG TAB PO SCH (19:39)
[2023-04-20] MEDS: ATORVASTATIN 10 MG TAB PO SCH (19:40)
[2023-04-20] MEDS: MIRTAZAPINE 15 MG TAB PO SCH (19:40)
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
[2023-04-21] MEDS: SERTRALINE 100 MG TAB PO SCH (07:59)
[2023-04-21] MEDS: PROPRANOLOL 10 MG TAB PO SCH ×2 (07:59→20:02)
[2023-04-21] MEDS: PANTOPRAZOLE 40 MG TABLET PO SCH (07:59)
[2023-04-21] MEDS: CHOLECALCIFEROL 25 MCG (1000 IU) TABLET PO SCH (07:59)
[2023-04-21] MEDS: NICOTINE 14MG/24HR PATCH TRANSDERM SCH (08:00)
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
[2023-04-21] MEDS: MIRTAZAPINE 15 MG TAB PO SCH (20:02)
[2023-04-21] MEDS: ATORVASTATIN 10 MG TAB PO SCH (20:03)
[2023-04-21] MEDS: PRAZOSIN 1 MG CAP PO SCH (20:03)
[2023-04-21] MEDS: risperiDONE 1 MG TAB PO SCH (20:03)
[2023-04-22] MEDS: CHOLECALCIFEROL 25 MCG (1000 IU) TABLET PO SCH (08:15)
[2023-04-22] MEDS: PROPRANOLOL 10 MG TAB PO SCH ×2 (08:16→20:15)
[2023-04-22] MEDS: SERTRALINE 100 MG TAB PO SCH (08:16)
[2023-04-22] MEDS: PANTOPRAZOLE 40 MG TABLET PO SCH (08:16)
[2023-04-22] MEDS: NICOTINE 14MG/24HR PATCH TRANSDERM SCH (08:17)
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
[2023-04-22] MEDS: ATORVASTATIN 10 MG TAB PO SCH (20:15)
[2023-04-22] MEDS: PRAZOSIN 1 MG CAP PO SCH (20:15)
[2023-04-22] MEDS: MIRTAZAPINE 15 MG TAB PO SCH (20:15)
[2023-04-22] MEDS: risperiDONE 1 MG TAB PO SCH (20:15)
[2023-04-23 06:58] VITALS: RESP 17; TEMP 98.2
[2023-04-23] MEDS: PANTOPRAZOLE 40 MG TABLET PO SCH (08:25)
[2023-04-23] MEDS: PROPRANOLOL 10 MG TAB PO SCH (08:25)
[2023-04-23] MEDS: SERTRALINE 100 MG TAB PO SCH (08:25)
[2023-04-23] MEDS: CHOLECALCIFEROL 25 MCG (1000 IU) TABLET PO SCH (08:25)
[2023-04-23 08:27] VITALS: BP 128/86; PULSE 102
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
== END 2023-04-23 15:31 | disposition home or self-care (01) | DRG 773 ==
LOC: EC 16:40 → 3MHU 20:02
PROVIDERS: ADMIT Psychiatry & Neurology Psychiatry; ATTEND Psychiatry & Neurology Psychiatry
DX: F19.159 Other psychoactive substance abuse with psychoactive substance-induced psychotic disorder, unspecified (principal); F20.9 Schizophrenia, unspecified; R45.851 Suicidal ideations; Z20.822 Contact with and (suspected) exposure to COVID-19; F12.10 Cannabis abuse, uncomplicated; F11.10 Opioid abuse, uncomplicated; F17.210 Nicotine dependence, cigarettes, uncomplicated; T74.21XA Adult sexual abuse, confirmed, initial encounter; D72.829 Elevated white blood cell count, unspecified; F43.10 Post-traumatic stress disorder, unspecified; F32.A Depression, unspecified; F90.9 Attention-deficit hyperactivity disorder, unspecified type; B19.20 Unspecified viral hepatitis C without hepatic coma; F41.1 Generalized anxiety disorder; Z79.899 Other long term (current) drug therapy; Z88.2 Allergy status to sulfonamides; Z88.5 Allergy status to narcotic agent; Z88.8 Allergy status to other drugs, medicaments and biological substances; Z71.51 Drug abuse counseling and surveillance of drug abuser
CPT/HCPCS: 36415; 80053; 80061; 80306; 81003; 82075; 83036; 84443; 85025; 87635; 99285

== ENCOUNTER 2023-11-27 11:13 | Inpatient (IN) | payer MEDICAID, OTHER ==
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
[2023-11-27 13:36] LABS: Amphetamine Screen,Urine Detected (NotDetected); Barbiturate Screen,Urine Not Detected (NotDetected); Benzodiazepines Screen,Urine Not Detected (NotDetected); Cocaine Screen,Urine Not Detected (NotDetected); Methadone Screen, Urine Not Detected (NotDetected); Opiate Screen,Urine Detected (NotDetected); Oxycodone Screen, Urine Not Detected (NotDetected); Phencyclidine Screen,Urine Not Detected (NotDetected); Tricyclic Antidepressant,Urine Not Detected (NotDetected); Urn Cannabinoid Scrn Detected (NotDetected)
[2023-11-27] MEDS ORDERED: LORazepam 1 MG TAB PO STA (20:13)
[2023-11-27] MEDS ORDERED: MAGNESIUM HYDROXIDE 2,400 MG/30 ML CUP PO PRN (21:39)
[2023-11-27] MEDS ORDERED: MAG HYDROX/AL HYDROX/SIMETH 30 ML CUP PO PRN (21:39)
[2023-11-27] MEDS ORDERED: LORazepam 2 MG/ML INJ IM PRN (21:39)
[2023-11-27] MEDS ORDERED: OLANZapine 7.5 MG TAB PO PRN (21:39)
[2023-11-27] MEDS ORDERED: OLANZapine 10 MG VIAL IM PRN (21:39)
[2023-11-27] MEDS ORDERED: ALBUTEROL INHALER 60 PUFF/8 GM INHALER (MHU) INHALATION PRN (21:43)
[2023-11-27] MEDS ORDERED: MELATONIN 5 MG TABLET PO PRN (21:54)
[2023-11-27] MEDS ORDERED: OLANZapine 5 MG TAB PO PRN (21:55)
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
[2023-11-28] MEDS: LORazepam 1 MG TAB PO PRN ×3 (05:34→20:36)
[2023-11-28] MEDS: IBUPROFEN 600 MG TAB PO PRN (05:34)
[2023-11-28] MEDS: PANTOPRAZOLE 40 MG TABLET PO SCH (08:28)
[2023-11-28] MEDS: PROPRANOLOL 20 MG TAB PO SCH ×2 (08:30→15:44)
[2023-11-28] MEDS: NICOTINE 21MG/24HR PATCH TRANSDERM SCH (08:30)
[2023-11-28] MEDS: lisinopriL 5 MG TAB PO SCH (08:30)
[2023-11-28] MEDS: CHOLECALCIFEROL 25 MCG (1000 IU) TABLET PO SCH (08:30)
[2023-11-28] MEDS: SERTRALINE 100 MG TAB PO SCH (11:43)
[2023-11-28] MEDS: PALIPERIDONE 6 MG TAB.ER.24 PO SCH (11:43)
[2023-11-28 13:22] LABS: Basophils % (A) 0 %; Eosinophils # (A) 0.1 k/uL (0-0.7); Eosinophils % (A) 1 %; HCT 47.2 % (39.0-53.0); HGB 15.4 gm/dL (13.0-17.5); Lymphocytes # (A) 1.9 k/uL (1.0-4.8); Lymphocytes % (A) 21 %; MCH 30.1 pg (25.0-35.0); MCHC 32.5 g/dL (31.0-37.0); MCV 92.6 fL (80.0-100.0); Mean Platelet Volume 9.1; Monocytes # (A) 0.3 k/uL (0-1.0); Monocytes % (A) 3 %; Neutrophils # (A) 6.7 k/uL (1.3-7.7); Neutrophils % (A) 74 %; Platelet Count 282 k/uL (150-450); RDW 13.9 % (11.5-15.5); WBC 9.1 k/uL (3.8-10.6)
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
[2023-11-28 14:00] LABS: ALT 37 U/L (4-49); AST 36 U/L (17-59); African American GFR (CKD) >90 (>60 ml/min/1.73 sqM); Albumin 4.8 g/dL (3.5-5.0); Alkaline Phosphatase 58 U/L (38-126); Anion Gap 15 mmol/L; Blood Urea Nitrogen 22 mg/dL (9-20); Calcium 10.1 mg/dL (8.4-10.2); Carbon Dioxide 23 mmol/L (22-30); Chloride 100 mmol/L (98-107); Glucose 87 mg/dL (74-99); Non-African American GFR(CKD) >90 (>60 ml/min/1.73 sqM); Potassium 5.3 mmol/L (3.5-5.1); Sodium 138 mmol/L (137-145); Total Bilirubin 0.7 mg/dL (0.2-1.3); Total Protein 7.6 g/dL (6.3-8.2)
[2023-11-28] MEDS: MIRTAZAPINE 15 MG TAB PO SCH (20:34)
[2023-11-28] MEDS: PRAZOSIN 1 MG CAP PO SCH (20:34)
[2023-11-28] MEDS: QUEtiapine 50 MG TAB PO SCH (20:34)
[2023-11-28] MEDS: ATORVASTATIN 10 MG TAB PO SCH (20:34)
[2023-11-28 23:07] LABS: Chol/HDL Ratio 6.58 Ratio; LDL Cholesterol,Calculated 201.6 mg/dL (0.0-131.0)
[2023-11-29] MEDS: LORazepam 1 MG TAB PO PRN ×2 (05:47→14:19)
[2023-11-29] MEDS: NICOTINE 21MG/24HR PATCH TRANSDERM SCH (08:09)
[2023-11-29] MEDS: IBUPROFEN 600 MG TAB PO PRN (08:13)
[2023-11-29] MEDS: CHOLECALCIFEROL 25 MCG (1000 IU) TABLET PO SCH (08:14)
[2023-11-29] MEDS: PALIPERIDONE 6 MG TAB.ER.24 PO SCH (08:14)
[2023-11-29] MEDS: PROPRANOLOL 20 MG TAB PO SCH ×2 (08:14→17:30)
[2023-11-29] MEDS: lisinopriL 5 MG TAB PO SCH (08:14)
[2023-11-29] MEDS: SERTRALINE 100 MG TAB PO SCH (08:14)
[2023-11-29] MEDS: PANTOPRAZOLE 40 MG TABLET PO SCH (08:14)
--- NOTE | 2023-11-29 19:00 | P.PN ---
Subjective Progress Note Date: 11/29/23 Principal diagnosis: IMPRESSIONS: Schizoaffective disorder, depressive type Methamphetamine-induced psychosis H/o PTSD Nicotine dependence Cannabis use disorder patient Name: Berto Vega Date of : 89 Patient Status: Inpatient Attending Provider: Isaac Huber Date: 11/29/23 Subject data: the patient was seen via Tele psych chart was reviewed in case discussed with the nursing staff patient reports that he is been here for about three days and that he is been hospitalized on multiple occasions he states that the main reason for his repeated hospitalization has been mainly not taking his medications he states that he tends to get paranoid like people were after him or trying to get him in trouble and that he ends up coming to the hospital he says that he uses cannabis on a regular basis he says that he used to use other drugs and that he is use pretty much everything available from 817 until about two years ago he says that he currently is on disability and lives with some roommates he states that he was visiting his mom is today when she ended up calling the police because he was getting paranoid patient also reports that he does not want to take any long-acting depot medications but did not give any specific reasons IMPRESSIONS: Schizoaffective disorder, depressive type Methamphetamine-induced psychosis H/o PTSD Nicotine dependence Cannabis use disorder PLAN: -Patient is admitted under voluntary status to MHU for stabilization of psychiatric symptoms and safety. Patient signed adult voluntary form and medication consent and is placed in patient's chart. -Medications : continue his home medications Prazosin 3 mg daily at bedtime for PTSD related nightmares Zoloft 200 mg by mouth daily for PTSD Remeron 30 mg by mouth at bedtime for depression/insomnia/appetite Zyprexa was stopped since he is not compliant. Started Invega 6 mg daily with plan for NASH to help improve compliance Start Seroquel 50 mg qHS for sleep - transient to help improve sleep while undergoing withdrawal -Ativan and Zyprexa PRN for agitation/aggression- - NRT -Patient was counselled on substance abuse and desired to cut back on use. Motivational interviewing. -Patient was informed of the risks, benefits and side effects of the medication and patient verbally consented to taking the medications. Patient signed med consent form and was placed in chart. -Internal Medicine consult to perform medical evaluation and physical. -SW on board for discharge planning. Encourage patient to participate in groups to work on coping skills. Matt Schulz MD 11/29/23 Objective - Vital Signs Vital signs: Vital Signs Temp 97.7 F 11/29/23 06:43 Pulse 107 H 11/29/23 17:30 Resp 16 11/29/23 06:43 BP 122/67 11/29/23 17:30 Pulse Ox 98 11/29/23 06:43 FiO2 Intake & Output 11/28/23 11/29/23 11/29/23 18:59 06:59 18:59 Weight 90.4 kg - Labs CBC & Chem 7: 11/28/23 12:15 11/28/23 12:15 Labs: Abnormal Lab Results - Last 24 Hours (Table) 11/28/23 Range/Units 12:15 Cholesterol 271.00 H (0.00-200.00) mg/dL LDL Cholesterol, Calc 201.6 H (0.0-131.0) mg/dL
[2023-11-29] MEDS: ATORVASTATIN 10 MG TAB PO SCH (20:33)
[2023-11-29] MEDS: PRAZOSIN 1 MG CAP PO SCH (20:33)
[2023-11-29] MEDS: QUEtiapine 50 MG TAB PO SCH (20:33)
[2023-11-29] MEDS: MIRTAZAPINE 15 MG TAB PO SCH (20:33)
[2023-11-30] MEDS: PANTOPRAZOLE 40 MG TABLET PO SCH (08:39)
[2023-11-30] MEDS: LORazepam 1 MG TAB PO PRN ×3 (08:39→20:30)
[2023-11-30] MEDS: SERTRALINE 100 MG TAB PO SCH (08:39)
[2023-11-30] MEDS: PALIPERIDONE 6 MG TAB.ER.24 PO SCH (08:39)
[2023-11-30] MEDS: PROPRANOLOL 20 MG TAB PO SCH ×2 (08:39→15:22)
[2023-11-30] MEDS: lisinopriL 5 MG TAB PO SCH (08:39)
[2023-11-30] MEDS: CHOLECALCIFEROL 25 MCG (1000 IU) TABLET PO SCH (08:39)
[2023-11-30] MEDS: NICOTINE 21MG/24HR PATCH TRANSDERM SCH (08:39)
--- NOTE | 2023-11-30 14:03 | P.PN ---
Subjective Progress Note Date: 11/30/23 Principal diagnosis: IMPRESSIONS: Schizoaffective disorder, depressive type Methamphetamine-induced psychosis H/o PTSD Nicotine dependence Cannabis use disorder patient Name: Berto Vega Date of : [birth year] Patient Status: Inpatient Attending Provider: Isaac Huber Date: 11/30/23 Subject data: Patient was similar to the previous day the patient was seen via Tele psych chart was reviewed in case discussed with the nursing staff patient reports that he is been here for about three days and that he is been hospitalized on multiple occasions he states that the main reason for his repeated hospitalization has been mainly not taking his medications he states that he tends to get paranoid like people were after him or trying to get him in trouble and that he ends up coming to the hospital Patient seem to be in certain but now seems to be acceptable long-acting depot medications IMPRESSIONS: Schizoaffective disorder, depressive type Methamphetamine-induced psychosis H/o PTSD Nicotine dependence Cannabis use disorder PLAN: -Patient is admitted under voluntary status to MHU for stabilization of psychiatric symptoms and safety. Patient signed adult voluntary form and medication consent and is placed in patient's chart. -Medications : continue his home medications Prazosin 3 mg daily at bedtime for PTSD related nightmares Zoloft 200 mg by mouth daily for PTSD Remeron 30 mg by mouth at bedtime for depression/insomnia/appetite Zyprexa was stopped since he is not compliant. Started Invega 6 mg daily with plan for NASH to help improve compliance Patient seem to be acceptable today for people medication Start Seroquel 50 mg qHS for sleep - transient to help improve sleep while undergoing withdrawal -Ativan and Zyprexa PRN for agitation/aggression- - NRT -Patient was counselled on substance abuse and desired to cut back on use. Motivational interviewing. -Patient was informed of the risks, benefits and side effects of the medication and patient verbally consented to taking the medications. Patient signed med consent form and was placed in chart. -Internal Medicine consult to perform medical evaluation and physical. -SW on board for discharge planning. Encourage patient to participate in groups to work on coping skills. Matt Schulz MD 11/30/23 Objective - Vital Signs Vital signs: Vital Signs Temp 97.7 F 01/15/24 06:43 Pulse 115 H 11/30/23 08:37 Resp 16 11/29/23 06:43 BP 152/96 11/30/23 08:37 Pulse Ox 98 11/29/23 06:43 FiO2 - Labs CBC & Chem 7: 11/28/23 12:15 11/28/23 12:15
[2023-11-30] MEDS: ACETAMINOPHEN TAB 325 MG TAB PO PRN (15:22)
[2023-11-30] MEDS: PRAZOSIN 1 MG CAP PO SCH (19:50)
[2023-11-30] MEDS: QUEtiapine 50 MG TAB PO SCH (19:51)
[2023-11-30] MEDS: MIRTAZAPINE 15 MG TAB PO SCH (19:51)
[2023-11-30] MEDS: ATORVASTATIN 10 MG TAB PO SCH (19:51)
[2023-12-01] MEDS: PROPRANOLOL 20 MG TAB PO SCH ×2 (08:22→15:54)
[2023-12-01] MEDS: PANTOPRAZOLE 40 MG TABLET PO SCH (08:22)
[2023-12-01] MEDS: SERTRALINE 100 MG TAB PO SCH (08:23)
[2023-12-01] MEDS: NICOTINE 21MG/24HR PATCH TRANSDERM SCH ×3 (08:23→10:12)
[2023-12-01] MEDS: PALIPERIDONE 6 MG TAB.ER.24 PO SCH (08:23)
[2023-12-01] MEDS: lisinopriL 5 MG TAB PO SCH (08:23)
[2023-12-01] MEDS: CHOLECALCIFEROL 25 MCG (1000 IU) TABLET PO SCH (08:24)
[2023-12-01] MEDS: LORazepam 1 MG TAB PO PRN (15:49)
--- NOTE | 2023-12-01 16:31 | P.PN ---
Subjective Progress Note Date: 12/01/23 Principal diagnosis: IMPRESSIONS: Schizoaffective disorder, depressive type Methamphetamine-induced psychosis H/o PTSD Nicotine dependence Cannabis use disorder patient Name: Berto Vega Date of : [birth year] Patient Status: Inpatient Attending Provider: Isaac Huber Date: 12/01/23 Subject data: Patient was similar to the previous day the patient was seen via Tele psych chart was reviewed in case discussed with the nursing staff The patient reports that he is doing better new line he stated that he sleep has been fair new line he denies any mood swings new line he denies any feelings of agitation or anxiety he denies any thoughts of wanting to hurt himself or others he denied any suicidal thoughts or plans He reports that he will take the in [place] intramuscular before discharge IMPRESSIONS: Schizoaffective disorder, depressive type Methamphetamine-induced psychosis H/o PTSD Nicotine dependence Cannabis use disorder PLAN: -Patient is admitted under voluntary status to MHU for stabilization of psychiatric symptoms and safety. Patient signed adult voluntary form and medication consent and is placed in patient's chart. -Medications : continue his home medications Prazosin 3 mg daily at bedtime for PTSD related nightmares Zoloft 200 mg by mouth daily for PTSD Remeron 30 mg by mouth at bedtime for depression/insomnia/appetite Zyprexa was stopped since he is not compliant. Started Invega 6 mg daily with plan for NASH to help improve compliance Patient seem to be acceptable today for people medication Start Seroquel 50 mg qHS for sleep - transient to help improve sleep while undergoing withdrawal -Ativan and Zyprexa PRN for agitation/aggression- - NRT -Patient was counselled on substance abuse and desired to cut back on use. Motivational interviewing. -Patient was informed of the risks, benefits and side effects of the medication and patient verbally consented to taking the medications. Patient signed med consent form and was placed in chart. -Internal Medicine consult to perform medical evaluation and physical. -SW on board for discharge planning. Encourage patient to participate in groups to work on coping skills. Patient is now willing and Cooperative regarding the deport form of antipsychotic tentative discharge and 1 to 3 days Mattremigio Schulz MD Objective - Vital Signs Vital signs: Vital Signs Temp 97.3 F L 12/01/23 08:21 Pulse 123 H 12/01/23 08:21 Resp 20 12/01/23 08:21 BP 129/89 12/01/23 08:21 Pulse Ox 98 11/29/23 06:43 FiO2 - Labs CBC & Chem 7: 11/28/23 12:15 11/28/23 12:15
[2023-12-01] MEDS: ATORVASTATIN 10 MG TAB PO SCH (20:15)
[2023-12-01] MEDS: MIRTAZAPINE 15 MG TAB PO SCH (20:15)
[2023-12-01] MEDS: PRAZOSIN 1 MG CAP PO SCH (20:15)
[2023-12-01] MEDS: QUEtiapine 50 MG TAB PO SCH (20:15)
[2023-12-02] MEDS: PROPRANOLOL 20 MG TAB PO SCH ×2 (08:25→15:58)
[2023-12-02] MEDS: CHOLECALCIFEROL 25 MCG (1000 IU) TABLET PO SCH (08:25)
[2023-12-02] MEDS: lisinopriL 5 MG TAB PO SCH (08:25)
[2023-12-02] MEDS: PANTOPRAZOLE 40 MG TABLET PO SCH (08:25)
[2023-12-02] MEDS: NICOTINE 21MG/24HR PATCH TRANSDERM SCH (08:25)
[2023-12-02] MEDS: PALIPERIDONE 6 MG TAB.ER.24 PO SCH (08:25)
[2023-12-02] MEDS: SERTRALINE 100 MG TAB PO SCH (08:25)
[2023-12-02] MEDS: LORazepam 1 MG TAB PO PRN ×2 (08:27→19:59)
[2023-12-02] MEDS ORDERED: PALIPERIDONE IM 234 MG/1.5 ML SYG IM STA (16:01)
--- NOTE | 2023-12-02 16:01 | P.PN ---
Subjective Progress Note Date: 12/02/23 Principal diagnosis: IMPRESSIONS: Schizoaffective disorder, depressive type Methamphetamine-induced psychosis H/o PTSD Nicotine dependence Cannabis use disorder patient Name: Berto Vega Date of : [birth year] Patient Status: Inpatient Attending Provider: Isaac Huber Date: 12/02/23 Subject data: Patient was similar to the previous day the patient was seen via Tele psych chart was reviewed in case discussed with the nursing staff The patient reports that he is doing better new line he stated that he sleep has been fair he denies any mood swings new line he denies any feelings of agitation or anxiety he denies any thoughts of wanting to hurt himself or others he denied any suicidal thoughts or plans He reports that he will take the in [facility] intramuscular before discharge IMPRESSIONS: Schizoaffective disorder, depressive type Methamphetamine-induced psychosis H/o PTSD Nicotine dependence Cannabis use disorder PLAN: -Patient is admitted under voluntary status to MHU for stabilization of psyc hiatric symptoms and safety. Patient signed adult voluntary form and medication consent and is placed in patient's chart. -Medications : continue his home medications Prazosin 3 mg daily at bedtime for PTSD related nightmares Zoloft 200 mg by mouth daily for PTSD Remeron 30 mg by mouth at bedtime for depression/insomnia/appetite Zyprexa was stopped since he is not compliant. Started Invega 6 mg daily with plan for NASH to help improve compliance Start Seroquel 50 mg qHS for sleep - transient to help improve sleep while undergoing withdrawal -Ativan and Zyprexa PRN for agitation/aggression- will initiate the long-acting depot protocolfour in [place] will start with 234 mg IM today, then 156 mg on day 8 [12/10/23] maintenance dose of 117 mg intramuscular once monthly after that patient understood the effects and side effects and is willing to start the new protocol - NRT -Patient was counselled on substance abuse and desired to cut back on use. Motivational interviewing. -Patient was informed of the risks, benefits and side effects of the medication and patient verbally consented to taking the medications. Patient signed med consent form and was placed in chart. -Internal Medicine consult to perform medical evaluation and physical. -SW on board for discharge planning. Encourage patient to participate in groups to work on coping skills. Patient is now willing and Cooperative regarding the deport form of antipsychotic tentative discharge and 1 to 3 days Matt Schulz MD Objective - Vital Signs Vital signs: Vital Signs Temp 97.3 F L 12/01/23 08:21 Pulse 88 12/02/23 06:55 Resp 20 12/01/23 08:21 BP 115/59 12/02/23 06:55 Pulse Ox 98 11/29/23 06:43 FiO2 - Labs CBC & Chem 7: 11/28/23 12:15 11/28/23 12:15
[2023-12-02] MEDS: PRAZOSIN 1 MG CAP PO SCH (19:59)
[2023-12-02] MEDS: ATORVASTATIN 10 MG TAB PO SCH (19:59)
[2023-12-02] MEDS: MIRTAZAPINE 15 MG TAB PO SCH (19:59)
[2023-12-02] MEDS: QUEtiapine 50 MG TAB PO SCH (19:59)
[2023-12-03] MEDS: NICOTINE 21MG/24HR PATCH TRANSDERM SCH (07:59)
[2023-12-03] MEDS: PROPRANOLOL 20 MG TAB PO SCH ×2 (08:00→15:47)
[2023-12-03] MEDS: PALIPERIDONE 6 MG TAB.ER.24 PO SCH (08:00)
[2023-12-03] MEDS: SERTRALINE 100 MG TAB PO SCH (08:00)
[2023-12-03] MEDS: lisinopriL 5 MG TAB PO SCH (08:00)
[2023-12-03] MEDS: PANTOPRAZOLE 40 MG TABLET PO SCH (08:00)
[2023-12-03] MEDS: CHOLECALCIFEROL 25 MCG (1000 IU) TABLET PO SCH (08:00)
--- NOTE | 2023-12-03 11:55 | P.PN ---
Progress Note - Text Progress Note Date: 12/03/23 Subject data: Patient was seen today for psychiatric follow-up . Patient was mainly seen sitting in the hallway keeping to himself. He appeared to have a mildly disheveled appearance. States that he is continuing to feel fairly anxious during the day. We spoke about trying Vistaril which is okay with trying. States that his sleep has been on and off. Claims that the voices have been improving, less intrusive thoughts, not endorsing any paranoia or delusions at this time. He was fairly focused on discharge. He received the first Invega Sustenna dose yesterday tolerated it well. He was minimizing his need for hospitalization. Claims that his appetite is fair. Denying any auditory or visual hallucinations. Denying any suicidal or homicidal ideations intent or plan. Mental Status Exam: General Appearance: Patient appears to be stated age is alert, directable, and cooperative. Behavior: Patient is calmly seated without any agitated behavior. Speech: Patient's speech is fluent and nonpressured. Mood/Affect: Mood is improving mildly, affect is congruent and constricted. Suicidality/Homicidality: Patient denies having any suicidal or homicidal ideation intent or plan. Perceptions: Patient denies any visual hallucinations and denies any auditory hallucinations Though content/process: There is no evidence of any delusional thought content and thought process is linear and goal-directed. Memory and concentration: AOX3, grossly intact for the purposes of this session Judgment and insight: Improving mildly Assessment Schizoaffective disorder, depressive type Methamphetamine-induced psychosis H/o PTSD Nicotine dependence Cannabis use disorder Plan: -Patient continues to meet criteria for inpatient psychiatric admission for symptom stabilization and safety. Patient has signed adult voluntary form and and was placed in patient's chart. -Medications: continue his home medications Prazosin 3 mg daily at bedtime for PTSD related nightmares Zoloft 200 mg by mouth daily for PTSD Remeron 30 mg by mouth at bedtime for depression/insomnia/appetite Invega 6 mg for tonight then continue decreasing/tapering off, patient received first dose of Invega Sustenna 234 mg IM on 12/02, next dose to be due on Wednesday 156 mg IM prior to discharge. Seroquel 50 mg qHS for sleep/mood stabilization, consider replacing with a non- antipsychotic medication. -Ativan and Zyprexa PRN for agitation/aggression- -When necessary Ativan and Haldol for agitation/aggression. -NRT - nicotine patch -SW on board for discharge planning. Encouraged the patient to participate in milieu. Patient will likely be set for discharge once he receives his second dose of Invega Sustenna on Wednesday.
[2023-12-03] MEDS: hydrOXYzine pamoate 25 MG CAP PO PRN (15:47)
[2023-12-03] MEDS: ATORVASTATIN 10 MG TAB PO SCH (19:56)
[2023-12-03] MEDS: QUEtiapine 50 MG TAB PO SCH (19:56)
[2023-12-03] MEDS: MIRTAZAPINE 15 MG TAB PO SCH (19:56)
[2023-12-03] MEDS: LORazepam 1 MG TAB PO PRN (19:56)
[2023-12-03] MEDS: PRAZOSIN 1 MG CAP PO SCH (19:56)
[2023-12-03] MEDS ORDERED: PALIPERIDONE 6 MG TAB.ER.24 PO ONE (21:00)
[2023-12-04] MEDS: lisinopriL 5 MG TAB PO SCH (08:22)
[2023-12-04] MEDS: PANTOPRAZOLE 40 MG TABLET PO SCH (08:22)
[2023-12-04] MEDS: PROPRANOLOL 20 MG TAB PO SCH ×2 (08:22→15:52)
[2023-12-04] MEDS: NICOTINE 21MG/24HR PATCH TRANSDERM SCH ×2 (08:22→12:04)
[2023-12-04] MEDS: CHOLECALCIFEROL 25 MCG (1000 IU) TABLET PO SCH (08:22)
[2023-12-04] MEDS: SERTRALINE 100 MG TAB PO SCH (08:22)
[2023-12-04] MEDS: LORazepam 1 MG TAB PO PRN ×2 (08:23→21:05)
[2023-12-04] MEDS: IBUPROFEN 600 MG TAB PO PRN (09:10)
[2023-12-04] MEDS: ACETAMINOPHEN TAB 325 MG TAB PO PRN (15:51)
[2023-12-04] MEDS: hydrOXYzine pamoate 25 MG CAP PO PRN (15:52)
[2023-12-04] MEDS: MIRTAZAPINE 15 MG TAB PO SCH (21:05)
[2023-12-04] MEDS: ATORVASTATIN 10 MG TAB PO SCH (21:05)
[2023-12-04] MEDS: PALIPERIDONE 3 MG TAB.ER.24 PO SCH (21:05)
[2023-12-04] MEDS: QUEtiapine 50 MG TAB PO SCH (21:05)
[2023-12-04] MEDS: PRAZOSIN 1 MG CAP PO SCH (21:05)
--- NOTE | 2023-12-04 22:28 | P.PN ---
Progress Note - Text Progress Note Date: 12/04/23 Interval history: Patient was seen in the cafe about to eat his snack. He was directable and agreeable to speak with creative services writer. He reports he is doing well, reports good mood. He slept 6+ hours last night. He is medication compliant and complains of feeling somewhat restless in his legs. We discussed his oral Invega will be lowered to 3 mg tonight with plan to discontinue and he expresses understanding. He did report anxiety this morning & this evening and received Ativan 1 mg po x2 today, and x1 yesterday evening. At this time patient denies any suicidal or homicidal ideation, intent or plan. He denies any auditory or visual hallucinations. Mental status exam: General Appearance: Patient appears to be stated age, messy hair, fair hygiene. Behavior: No agitated behavior. Patient is calm and directable. Speech: Patient's speech is fluent and non-pressured. Mood/Affect: Mood is improving mildly, affect is congruent and constricted. Suicidality/Homicidality: Patient denies having any suicidal or homicidal ideation intent or plan. Perceptions: Patient denies any auditory or visual hallucinations. Though content/process: There is no evidence of any delusional thought content and thought process is linear and goal-directed. Memory and concentration: AOX3, grossly intact for the purposes of this session Judgment and insight: Improving mildly Assessment/Plan: Continue with current diagnosis. Patient continues to meet criteria for inpatient psychiatric admission for symptom stabilization and safety. Decrease oral Invega to 3 mg po QHS for tonight with plan to discontinue. Invega Sustenna first dose was given 12/02/23, and second dose of 156 mg IM is due on Wednesday12/07/23. Continue other meds as currently ordered. Monitor for medication compliance and for any psychotropic medication side effects. Will continue to monitor ongoing response to treatment. Encouraged participation in milieu.
[2023-12-05] MEDS: PANTOPRAZOLE 40 MG TABLET PO SCH (07:56)
[2023-12-05] MEDS: SERTRALINE 100 MG TAB PO SCH (07:56)
[2023-12-05] MEDS: CHOLECALCIFEROL 25 MCG (1000 IU) TABLET PO SCH (07:56)
[2023-12-05] MEDS: PROPRANOLOL 20 MG TAB PO SCH ×2 (07:56→15:30)
[2023-12-05] MEDS: lisinopriL 5 MG TAB PO SCH (07:57)
[2023-12-05] MEDS: NICOTINE 21MG/24HR PATCH TRANSDERM SCH (08:01)
[2023-12-05] MEDS: LORazepam 1 MG TAB PO PRN (09:58)
--- NOTE | 2023-12-05 18:02 | P.PN ---
Progress Note - Text Progress Note Date: 12/05/23 Interval history: Patient was seen walking the hallways and was directable and agreeable to speak with rfp writer. He reports he is doing well, reports good mood. He slept 6+ hours last night. He is medication compliant and complains of feeling somewhat anxious. We talked about psychotherapy and he plans to continue this at [facility] after discharge. He did report anxiety this morning and received Ativan 1 mg po x today. At this time, patient denies any suicidal or homicidal ideation, intent or plan. He denies any auditory or visual hallucinations. Mental status exam: General Appearance: Patient appears to be stated age, messy hair, fair hygiene. Behavior: No agitated behavior. Patient is calm and directable. Speech: Patient's speech is fluent and non-pressured. Mood/Affect: Mood is anxious, affect is congruent and reactive. Suicidality/Homicidality: Patient denies having any suicidal or homicidal ideation intent or plan. Perceptions: Patient denies any auditory or visual hallucinations. Though content/process: There is no evidence of any delusional thought content and thought process is linear and goal-directed. Memory and concentration: AOX3, grossly intact for the purposes of this session Judgment and insight: Improving mildly Assessment/Plan: Continue with current diagnosis. Patient continues to meet criteria for inpatient psychiatric admission for symptom stabilization and safety. Continue Invega 3 mg po QHS for tonight then discontinue. Invega Sustenna first dose was given 12/02/23, and second dose of 156 mg IM is due on Wednesday12/07/23. Continue other meds as currently ordered. Monitor for medication compliance and for any psychotropic medication side effects. Will continue to monitor ongoing response to treatment. Encouraged participation in milieu.
[2023-12-05] MEDS: ATORVASTATIN 10 MG TAB PO SCH (20:38)
[2023-12-05] MEDS: QUEtiapine 50 MG TAB PO SCH (20:38)
[2023-12-05] MEDS: PRAZOSIN 1 MG CAP PO SCH (20:38)
[2023-12-05] MEDS: PALIPERIDONE 3 MG TAB.ER.24 PO SCH (20:38)
[2023-12-05] MEDS: MIRTAZAPINE 15 MG TAB PO SCH (20:38)
[2023-12-06] MEDS: CHOLECALCIFEROL 25 MCG (1000 IU) TABLET PO SCH (08:14)
[2023-12-06] MEDS: PANTOPRAZOLE 40 MG TABLET PO SCH (08:14)
[2023-12-06] MEDS: lisinopriL 5 MG TAB PO SCH (08:14)
[2023-12-06] MEDS: NICOTINE 21MG/24HR PATCH TRANSDERM SCH (08:14)
[2023-12-06] MEDS: PROPRANOLOL 20 MG TAB PO SCH ×2 (08:14→15:52)
[2023-12-06] MEDS: SERTRALINE 100 MG TAB PO SCH (08:15)
[2023-12-06 08:30] VITALS: RESP 18; TEMP 98.8
--- NOTE | 2023-12-06 10:05 | P.PN ---
Progress Note - Text Progress Note Date: 12/06/23 Subject data: Patient was seen today for psychiatric follow-up and he was attending group. Patient was mainly keeping to himself today. Patient's hygiene and grooming appear to be mildly improving. States that he is continuing to feel fairly anxious during the day however did state that this is improving with the medications. States that his sleep has been improving with the adjustments over the weekend. He has not endorsing any paranoia or delusions at this time. Patient appeared to be more appropriate and goal oriented. Insight and judgment have been improving. He received the first Invega Sustenna dose and patient was agreeable to have the second dose given to him tonight. Claims that his appetite is fair. Denying any auditory or visual hallucinations. Denying any suicidal or homicidal ideations intent or plan. Mental Status Exam: General Appearance: Patient appears to be stated age is alert, directable, and cooperative. Behavior: Patient is calmly seated without any agitated behavior. Speech: Patient's speech is fluent and nonpressured. Mood/Affect: Mood is improving mildly, affect is congruent and constricted. Improving mildly Suicidality/Homicidality: Patient denies having any suicidal or homicidal ideation intent or plan. Perceptions: Patient denies any visual hallucinations and denies any auditory hallucinations Though content/process: There is no evidence of any delusional thought content and thought process is linear and goal-directed. Memory and concentration: AOX3, grossly intact for the purposes of this session Judgment and insight: Improving mildly Assessment Schizoaffective disorder, depressive type Methamphetamine abuse Hx of PTSD Nicotine dependence Cannabis use disorder Plan: -Patient continues to meet criteria for inpatient psychiatric admission for symptom stabilization and safety. Patient has signed adult voluntary form and and was placed in patient's chart. -Medications: continue his home medications Prazosin 3 mg daily at bedtime for PTSD related nightmares Zoloft 200 mg by mouth daily for PTSD Remeron 30 mg by mouth at bedtime for depression/insomnia/appetite Invega po has been discontinued. patient received first dose of Invega Sustenna 234 mg IM on 12/02, next dose to be due on this evening 156 mg IM, monthly maintenance dose of 117 mg will be due on 12/27 Seroquel 50 mg qHS for sleep/mood stabilization -Ativan and Zyprexa PRN for agitation/aggression -When necessary Ativan and Haldol for agitation/aggression. -NRT - nicotine patch -SW on board for discharge planning. Encouraged the patient to participate in milieu. Patient will likely be set for discharge once he receives his second dose of Invega Sustenna, likely discharge back home with [facility] follow up tomorrow.
[2023-12-06] MEDS: LORazepam 1 MG TAB PO PRN (14:08)
[2023-12-06] MEDS: hydrOXYzine pamoate 25 MG CAP PO PRN (15:52)
[2023-12-06] MEDS ORDERED: PALIPERIDONE IM 156 MG/ML SYG IM ONE (18:00)
[2023-12-06] MEDS: ATORVASTATIN 10 MG TAB PO SCH (20:10)
[2023-12-06] MEDS: QUEtiapine 50 MG TAB PO SCH (20:10)
[2023-12-06] MEDS: MIRTAZAPINE 15 MG TAB PO SCH (20:10)
[2023-12-06] MEDS: PRAZOSIN 1 MG CAP PO SCH (20:10)
[2023-12-06] MEDS ORDERED: MELATONIN 3 MG TABLET PO SCH (21:00)
[2023-12-07] MEDS: PROPRANOLOL 20 MG TAB PO SCH (07:58)
[2023-12-07] MEDS: PANTOPRAZOLE 40 MG TABLET PO SCH (07:58)
[2023-12-07] MEDS: SERTRALINE 100 MG TAB PO SCH (07:58)
[2023-12-07] MEDS: lisinopriL 5 MG TAB PO SCH (07:58)
[2023-12-07] MEDS: CHOLECALCIFEROL 25 MCG (1000 IU) TABLET PO SCH (07:58)
[2023-12-07] MEDS: NICOTINE 21MG/24HR PATCH TRANSDERM SCH (07:59)
[2023-12-07 08:15] VITALS: BP 137/91; PULSE 118
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
== END 2023-12-07 11:41 | disposition home or self-care (01) | DRG 750 ==
LOC: EC 11:13 → 3MHU 21:35
PROVIDERS: ADMIT Psychiatry & Neurology Psychiatry; ATTEND Psychiatry & Neurology Psychiatry
DX: F25.1 Schizoaffective disorder, depressive type (principal); F12.10 Cannabis abuse, uncomplicated; F15.159 Other stimulant abuse with stimulant-induced psychotic disorder, unspecified; Z71.51 Drug abuse counseling and surveillance of drug abuser; F43.10 Post-traumatic stress disorder, unspecified; G47.00 Insomnia, unspecified; Z79.899 Other long term (current) drug therapy; T43.96XA Underdosing of unspecified psychotropic drug, initial encounter; Z91.128 Patient's intentional underdosing of medication regimen for other reason; Z71.89 Other specified counseling; Z11.52 Encounter for screening for COVID-19; Z28.21 Immunization not carried out because of patient refusal; Z88.5 Allergy status to narcotic agent; Z88.2 Allergy status to sulfonamides; Z88.8 Allergy status to other drugs, medicaments and biological substances
CPT/HCPCS: 80053; 80061; 80306; 82075; 83036; 84443; 85025; 87635; 99285

== ENCOUNTER 2024-02-05 09:23 | Emergency (ER) | payer OTHER ==
[2024-02-05 10:00] VITALS: RESP 20
--- NOTE | 2024-02-05 10:13 | ED ---
General Adult HPI - General Chief complaint: Psychiatric Symptoms Stated complaint: MENTAL HEALTH Time Seen by Provider: 02/05/24 09:39 Source: patient, RN notes reviewed, old records reviewed Mode of arrival: ambulatory Limitations: no limitations - History of Present Illness Initial comments: 33 yo male presenting for psychiatric evaluation. Patient states he was arrested but is uncertain why. He states that he did report suicidal ideation to police but states he has no active suicidal thoughts. No physical complaints. No suicide attempts. - Related Data Home Medications Medication Instructions Recorded Confirmed Albuterol Inhaler [Ventolin Hfa 1 - 2 puff INHALATION RT-Q6H PRN 11/27/23 11/27/23 Inhaler] Ibuprofen [Motrin] 400 mg PO Q6HR PRN 11/27/23 11/27/23 Previous Rx's Medication Instructions Recorded Atorvastatin [Lipitor] 10 mg PO HS 30 Days #30 tab 12/07/23 Cholecalciferol [Vitamin D3 (25 50 mcg PO DAILY 30 Days #30 tab 12/07/23 Mcg = 1000 Iu)] Melatonin 6 mg PO HS 30 Days #60 tab 12/07/23 Mirtazapine [Remeron] 30 mg PO HS 30 Days #60 tab 12/07/23 Nicotine 21Mg/24Hr Patch [Habitrol] 1 patch TRANSDERM DAILY 14 Days 12/07/23 #14 patch Omeprazole 20 mg PO DAILY 30 Days #30 cap 12/07/23 Paliperidone Palmitate [Invega 117 mg IM QMONTHLY #1 each 12/07/23 Sustenna] Prazosin [Minipress] 3 mg PO HS 30 Days #90 cap 12/07/23 Propranolol [Inderal] 20 mg PO BID@0800,1600 30 Days #60 12/07/23 tab QUEtiapine [SEROquel] 50 mg PO HS 30 Days #30 tab 12/07/23 Sertraline [Zoloft] 200 mg PO DAILY 30 Days #60 tab 12/07/23 hydrOXYzine pamoate [Vistaril] 50 mg PO DAILY PRN 30 Days #60 cap 12/07/23 lisinopriL [Zestril] 5 mg PO DAILY 30 Days #30 tab 12/07/23 Allergies Allergy/AdvReac Type Severity Reaction Status Date / Time sulfamethoxazole Allergy Itching Verified 02/05/24 09:39 [From Bactrim] tramadol Allergy Unknown Verified 02/05/24 09:39 trimethoprim [From Bactrim] Allergy Itching Verified 02/05/24 09:39 fluphenazine [From Prolixin] AdvReac knees get Verified 02/05/24 09:39 shaky fluvoxamine maleate AdvReac Nausea & Verified 02/05/24 09:39 [From Luvox] Vomiting gabapentin AdvReac Addiction Verified 02/05/24 09:39 issues Review of Systems ROS Statement: Those systems with pertinent positive or pertinent negative responses have been documented in the HPI. ROS Other: All systems not noted in ROS Statement are negative. Past Medical History Additional Past Medical History / Comment(s): Schizophrenia, PTSD, generalized anxiety disorder, major depressive disorder with psychosis, ADHD, cutting, hepatitis C History of Any Multi-Drug Resistant Organisms: None Reported Past Surgical History: No Surgical Hx Reported Past Anesthesia/Blood Transfusion Reactions: No Reported Reaction Past Psychological History: ADD/ADHD, Anxiety, Depression, PTSD, Schizophrenia Smoking Status: Current every day smoker Past Alcohol Use History: None Reported Past Drug Use History: Marijuana, Methamphetamine, Opiates, Prescription Drug Abuse - Past Family History Father Family Medical History: No Reported History Mother Family Medical History: Liver Disease Additional Family Medical History / Comment(s): Patient is single and does not have any children. General Exam Limitations: no limitations General appearance: alert, in no apparent distress Head exam: Present: atraumatic, normocephalic Eye exam: Present: normal appearance, PERRL ENT exam: Present: normal exam Neck exam: Present: normal inspection. Absent: tenderness, meningismus Respiratory exam: Present: normal lung sounds bilaterally. Absent: respiratory distress, wheezes Cardiovascular Exam: Present: regular rate, normal rhythm GI/Abdominal exam: Present: soft. Absent: distended, tenderness Back exam: Present: normal inspection Neurological exam: Present: alert, oriented X3 Psychiatric exam: Present: depressed, suicidal ideation Skin exam: Present: warm, dry, intact Course Vital Signs 02/05/24 09:35 Temperature 97.3 F L Pulse Rate 122 H Respiratory 20 Rate Blood Pressure 120/77 O2 Sat by Pulse 99 Oximetry - Reevaluation(s) Reevaluation #1: 02/05/24 10:13 Clear for EPS Medical Decision Making - Medical Decision Making Was pt. sent in by a medical professional or institution (Dr., PA, PLATEN DRIER OPERATOR, urgent care, hospital, or [place] [facility] facility...) When possible be specific @ -No Did you speak to anyone other than the patient for history (EMS, parent, family, police, friend...)? What history was obtained from this source @ -No Did you review nursing and triage notes (agree or disagree)? Why? @ -I reviewed and agree with nursing and triage notes Were old charts reviewed (outside hosp., previous admission, EMS record, old EKG, old radiological studies, urgent care reports/EKG's, [place] health [facility] facility records)? Report findings @ -No old charts were reviewed Differential Diagnosis (chest pain, altered mental status, abdominal pain women, abdominal pain men, vaginal bleeding, weakness, fever, dyspnea, syncope, headache, dizziness, GI bleed, back pain, seizure, CVA, palpatations, mental health, musculoskeletal)? @ -Differential Mental Health Depression, anxiety, bipolar, psychosis, schizophrenia, borderline personality, situational depression, adjustment disorder, behavioral disorder, brain tumor, malingering, substance abuse, encephalopathy, medication reaction, dementia, hypothyroidism, degenerative neurologic disorder, lupus.... This is not meant to be all-inclusive list EKG interpreted by me (3pts min.). @ -As above X-rays interpreted by me (1pt min.). @ -None done CT interpreted by me (1pt min.). @ -None done U/S interpreted by me (1pt. min.). @ -None done What testing was considered but not performed or refused? (CT, X-rays, U/S, labs)? Why? @ -None What meds were considered but not given or refused? Why? @ -None Did you discuss the management of the patient with other professionals (professionals i.e. DOROTHY Crandall, PLATEN DRIER OPERATOR, lab, RT, psych nurse, social work associate, international account executive, teacher, defence force senior officer, major case detective)? Give summary @ -No Was smoking cessation discussed for >3mins.? @ -No Was critical care preformed (if so, how long)? @ -No Were there social determinants of health that impacted care today? How? (Homelessness, low income, unemployed, alcoholism, drug addiction, transportation, low edu. Level, literacy, decrease access to med. care, [facility], rehab)? @ -No Was there de-escalation of care discussed even if they declined (Discuss DNR or withdrawal of care, Hospice)? DNR status @ -No What co-morbidities impacted this encounter? (DM, HTN, Smoking, COPD, CAD, Cancer, CVA, ARF, Chemo, Hep., AIDS, mental health diagnosis, sleep apnea, morbid obesity)? @ -Anxiety and schizophrenia Was patient admitted / discharged? Hospital course, mention meds given and route, prescriptions, significant lab abnormalities, going to OR and other pertinent info. @ -33-year-old male presenting with request for mental health evaluation. Patient states he does follow-up with [facility] mental health. He had apparently reported suicidal thoughts but states he would never act on these thoughts and denies current suicidal ideation. There is no EPS available for evaluation until approximately 24 hours from now. The patient states that he can follow-up with [facility] mental health and states he would prefer to be discharged at this time. Again the patient is not voicing any active suicidal thoughts or suicidal plans. He is stable for discharge with follow-up with community mental health for possible medication adjustments. Undiagnosed new problem with uncertain prognosis? @ -No Drug Therapy requiring intensive monitoring for toxicity (Heparin, Nitro, Insulin, Cardizem)? @ -No Were any procedures done? @ -No Diagnosis/symptom? @ -[Anxiety Acute, or Chronic, or Acute on Chronic? @ -Acute Uncomplicated (without systemic symptoms) or Complicated (systemic symptoms)? @ -Default Side effects of treatment? @ -No Exacerbation, Progression, or Severe Exacerbation? @ -No Poses a threat to life or bodily function? How? (Chest pain, [place], [place], pneumonia, PE, COPD, DKA, ARF, appy, cholecystitis, CVA, Diverticulitis, Homicidal, Suicidal, threat to staff... and all critical care pts) @Low risk at this time Disposition Clinical Impression: Depression, Acute anxiety Disposition: HOME SELF-CARE Condition: Fair Instructions (If sedation given, give patient instructions): Anxiety (ED) Additional Instructions: Please follow-up with community mental health. Please return to the emergency department with any worsening or changing symptoms. Is patient prescribed a controlled substance at d/c from ED?: No Referrals: [facility] [Primary Care Provider] - 1-2 days Time of Disposition: 12:02
[2024-02-05 12:19] VITALS: BP 140/78; PULSE 120; TEMP 97.5
== END 2024-02-05 12:14 | disposition home or self-care (01) ==
LOC: EC 09:23
DX: F32.A Depression, unspecified (principal); F41.9 Anxiety disorder, unspecified; F17.200 Nicotine dependence, unspecified, uncomplicated; F12.90 Cannabis use, unspecified, uncomplicated; F15.90 Other stimulant use, unspecified, uncomplicated; F11.90 Opioid use, unspecified, uncomplicated; Z88.2 Allergy status to sulfonamides; Z88.1 Allergy status to other antibiotic agents; Z88.8 Allergy status to other drugs, medicaments and biological substances
CPT/HCPCS: 99284

== ENCOUNTER 2024-05-01 11:53 | Emergency (ER) | payer OTHER ==
--- NOTE | 2024-05-01 12:36 | ED ---
General Adult HPI - General Stated complaint: mental health Time Seen by Provider: 05/01/24 11:55 Source: patient, EMS, RN notes reviewed Mode of arrival: EMS Limitations: no limitations - History of Present Illness Initial comments: 33-year-old male presents emergency department via EMS from [place] for psychiatric evaluation. Staff reported that he been very paranoid having some delusional thoughts and stated that he did not want to live anymore and that he wanted to harm other people he states this is not true and he has no thoughts of harming other people denies being suicidal. Patient states that this was taken out of contacts and he states that he stated that he had no hobbies. Patient denies any current drug or alcohol use but states has been at [facility] for last 2 weeks for opiate and marijuana abuse - Related Data Home Medications Medication Instructions Recorded Confirmed Acetaminophen Tab [Tylenol] 650 mg PO Q4H 05/01/24 05/01/24 Calcium/Magnesium/Zinc/Vitamin D3 1 tab PO TID PRN 05/01/24 05/01/24 334/134/5mg Chlorpheniramine Maleate 4 mg PO Q4H PRN 05/01/24 05/01/24 [Chlor-Trimeton] Hyoscyamine Sulfate [Levsin] 0.125 mg PO QID PRN 05/01/24 05/01/24 Ibuprofen [Motrin Ib] 600 mg PO Q6H PRN 05/01/24 05/01/24 Loperamide [Imodium] 4 mg PO QID PRN 05/01/24 05/01/24 Multivitamins, Thera [Multivitamin 1 tab PO DAILY 05/01/24 05/01/24 (formulary)] Mylanta 30 ml PO Q4H PRN 05/01/24 05/01/24 Paliperidone IM [Invega Sustenna] 234 mg IM Q28D 05/01/24 05/01/24 Sertraline [Zoloft] 100 mg PO DAILY 05/01/24 05/01/24 Thiamine [Vitamin B-1] 100 mg PO DAILY 05/01/24 05/01/24 busPIRone HCl [Buspar] 10 mg PO TID 05/01/24 05/01/24 guaiFENesin [guaiFENesin Oral 200 mg PO Q4H PRN 05/01/24 05/01/24 Solution] ondansetron HCL [Zofran] 8 mg PO Q6H PRN 05/01/24 05/01/24 Previous Rx's Medication Instructions Recorded Atorvastatin [Lipitor] 10 mg PO HS 30 Days #30 tab 12/07/23 Melatonin 6 mg PO HS 30 Days #60 tab 12/07/23 Nicotine 21Mg/24Hr Patch [Habitrol] 1 patch TRANSDERM DAILY 14 Days 12/07/23 #14 patch Prazosin [Minipress] 3 mg PO HS 30 Days #90 cap 12/07/23 QUEtiapine [SEROquel] 50 mg PO HS 30 Days #30 tab 12/07/23 lisinopriL [Zestril] 5 mg PO DAILY 30 Days #30 tab 12/07/23 Allergies Allergy/AdvReac Type Severity Reaction Status Date / Time sulfamethoxazole Allergy Itching Verified 05/01/24 13:04 [From Bactrim] tramadol Allergy Unknown Verified 05/01/24 13:04 trimethoprim [From Bactrim] Allergy Itching Verified 05/01/24 13:04 fluphenazine [From Prolixin] AdvReac knees get Verified 05/01/24 13:04 shaky fluvoxamine maleate AdvReac Nausea & Verified 05/01/24 13:04 [From Luvox] Vomiting gabapentin AdvReac Addiction Verified 05/01/24 13:04 issues Review of Systems ROS Statement: Those systems with pertinent positive or pertinent negative responses have been documented in the HPI. ROS Other: All systems not noted in ROS Statement are negative. Past Medical History Additional Past Medical History / Comment(s): Schizophrenia, PTSD, generalized anxiety disorder, major depressive disorder with psychosis, ADHD, cutting, hepat itis C History of Any Multi-Drug Resistant Organisms: None Reported Past Surgical History: No Surgical Hx Reported Past Anesthesia/Blood Transfusion Reactions: No Reported Reaction Past Psychological History: ADD/ADHD, Anxiety, Depression, PTSD, Schizophrenia Smoking Status: Current every day smoker Past Alcohol Use History: None Reported Past Drug Use History: Marijuana, Methamphetamine, Opiates, Prescription Drug Abuse - Past Family History Father Family Medical History: No Reported History Mother Family Medical History: Liver Disease Additional Family Medical History / Comment(s): Patient is single and does not have any children. General Exam Limitations: no limitations General appearance: alert, in no apparent distress Head exam: Present: atraumatic, normocephalic, normal inspection Neck exam: Present: normal inspection, full ROM. Absent: tenderness, meningismus, lymphadenopathy Respiratory exam: Present: normal lung sounds bilaterally. Absent: respiratory distress, wheezes, rales, rhonchi, stridor Cardiovascular Exam: Present: regular rate, normal rhythm, normal heart sounds. Absent: systolic murmur, diastolic murmur, rubs, gallop, clicks Neurological exam: Present: alert, oriented X3, CN II-XII intact Skin exam: Present: warm, dry, intact, normal color. Absent: rash Course Vital Signs 05/01/24 05/01/24 11:55 16:50 Temperature 98.6 F 98.2 F Pulse Rate 59 L 61 Respiratory 16 17 Rate Blood Pressure 128/88 122/82 O2 Sat by Pulse 97 96 Oximetry Medical Decision Making - Medical Decision Making Was pt. sent in by a medical professional or institution (, PA, ENGLISH TEACHER, urgent care, hospital, or senior living...) When possible be specific @ -[place] Did you speak to anyone other than the patient for history (EMS, parent, family, police, friend...)? What history was obtained from this source @ -No Did you review nursing and triage notes (agree or disagree)? Why? @ -I reviewed and agree with nursing and triage notes Were old charts reviewed (outside hosp., previous admission, EMS record, old EKG, old radiological studies, urgent care reports/EKG's, senior living records)? Report findings @ -No old charts were reviewed Differential Diagnosis (chest pain, altered mental status, abdominal pain women, abdominal pain men, vaginal bleeding, weakness, fever, dyspnea, syncope, headache, dizziness, GI bleed, back pain, seizure, CVA, palpatations, mental health, musculoskeletal)? @ -Differential Mental Health Depression, anxiety, bipolar, psychosis, schizophrenia, borderline personality, situational depression, adjustment disorder, behavioral disorder, brain tumor, malingering, substance abuse, encephalopathy, medication reaction, dementia, hypothyroidism, degenerative neurologic disorder, lupus.... This is not meant to be all-inclusive list EKG interpreted by me (3pts min.). @ -None X-rays interpreted by me (1pt min.). @ -None done CT interpreted by me (1pt min.). @ -None done U/S interpreted by me (1pt. min.). @ -None done What testing was considered but not performed or refused? (CT, X-rays, U/S, labs)? Why? @ -None What meds were considered but not given or refused? Why? @ -None Did you discuss the management of the patient with other professionals (professionals i.e. Dr., PA, ENGLISH TEACHER, lab, RT, psych nurse, protective services social worker, hr generalist, teacher, radio officer, pillowcase cutter)? Give summary @ -[EPS evaluate patient and discussed case with psychiatrist recommends discharge back to [place] Was smoking cessation discussed for >3mins.? @ -No Was critical care preformed (if so, how long)? @ -No Were there social determinants of health that impacted care today? How? (Homelessness, low income, unemployed, alcoholism, drug addiction, transportation, low edu. Level, literacy, decrease access to med. care, long term, rehab)? @ -No Was there de-escalation of care discussed even if they declined (Discuss DNR or withdrawal of care, Hospice)? DNR status @ -No What co-morbidities impacted this encounter? (DM, HTN, Smoking, COPD, CAD, C ancer, CVA, ARF, Chemo, Hep., AIDS, mental health diagnosis, sleep apnea, morbid obesity)? @ -None Was patient admitted / discharged? Hospital course, mention meds given and route, prescriptions, significant lab abnormalities, going to OR and other pertinent info. @ -[Patient was evaluated by EPS sent in from [place] patient will be discharged back for further treatment management Undiagnosed new problem with uncertain prognosis? @ -No Drug Therapy requiring intensive monitoring for toxicity (Heparin, Nitro, Insulin, Cardizem)? @ -No Were any procedures done? @ -No Diagnosis/symptom? @ -Depression Acute, or Chronic, or Acute on Chronic? @ -Acute Uncomplicated (without systemic symptoms) or Complicated (systemic symptoms)? @ -Uncomplicated Side effects of treatment? @ -No Exacerbation, Progression, or Severe Exacerbation? @ -No Poses a threat to life or bodily function? How? (Chest pain, [place], [place], pneumonia, PE, COPD, DKA, ARF, appy, cholecystitis, CVA, Diverticulitis, Homicidal, [place] icidal, threat to staff... and all critical care pts) @ -No - Lab Data Lab Results 05/01/24 Range/Units 12:22 Urine Opiates Screen Not Detected (NotDetected) Ur Oxycodone Screen Not Detected (NotDetected) Urine Methadone Screen Not Detected (NotDetected) Ur Barbiturates Screen Not Detected (NotDetected) U Tricyclic Antidepress Detected H (NotDetected) Ur Phencyclidine Scrn Not Detected (NotDetected) Ur Amphetamines Screen Not Detected (NotDetected) U Methamphetamines Scrn Not Detected (NotDetected) U Benzodiazepines Scrn Not Detected (NotDetected) Urine Cocaine Screen Not Detected (NotDetected) U Marijuana (THC) Screen Detected H (NotDetected) Disposition Clinical Impression: Depression, Bipolar disorder Disposition: HOME SELF-CARE Additional Instructions: Please return to the Emergency Department if symptoms worsen or any other concerns. Is patient prescribed a controlled substance at d/c from ED?: No Referrals: [facility] [Primary Care Provider] - 1-2 days
[2024-05-01 12:43] LABS: Amphetamine Screen,Urine Not Detected (NotDetected); Barbiturate Screen,Urine Not Detected (NotDetected); Benzodiazepines Screen,Urine Not Detected (NotDetected); Cocaine Screen,Urine Not Detected (NotDetected); Methadone Screen, Urine Not Detected (NotDetected); Opiate Screen,Urine Not Detected (NotDetected); Oxycodone Screen, Urine Not Detected (NotDetected); Phencyclidine Screen,Urine Not Detected (NotDetected); Tricyclic Antidepressant,Urine Detected (NotDetected); Urn Cannabinoid Scrn Detected (NotDetected)
[2024-05-01 16:53] VITALS: BP 122/82; PULSE 61; RESP 17; TEMP 98.2
== END 2024-05-01 16:51 | disposition home or self-care (01) ==
LOC: EC 11:53
DX: F31.9 Bipolar disorder, unspecified (principal); F17.200 Nicotine dependence, unspecified, uncomplicated; Z79.899 Other long term (current) drug therapy; Z88.1 Allergy status to other antibiotic agents; Z88.2 Allergy status to sulfonamides; Z88.5 Allergy status to narcotic agent; Z88.8 Allergy status to other drugs, medicaments and biological substances
CPT/HCPCS: 80306; 82075; 99285

== ENCOUNTER 2024-05-08 21:59 | Inpatient (IN) | payer MEDICAID, OTHER ==
--- NOTE | 2024-05-08 23:23 | ED ---
Psych HPI - General Chief Complaint: Psychiatric Symptoms Stated Complaint: Petitioned Time Seen by Provider: 05/08/24 22:35 Source: patient, RN notes reviewed, old records reviewed Mode of arrival: ambulatory - History of Present Illness Initial Comments: This is a 33-year-old male to the ER for psychiatric evaluation and treatment. Patient presents today for evaluation of acute psychosis severe anxiety and need for mental health MD Complaint: suicidal ideation, feels depressed, altered mental status -: days(s) Associated Psychiatric Symptoms: depression, suicidal ideation, racing thoughts, auditory hallucinations History of same: Yes Quality: constant, intermittent Worsens With: none Context: not taking psychiatric medications, significant life stressor Associated Symptoms: denies other symptoms Treatments Prior to Arrival: placed on mental health hold If Self Harm: admits thoughts of self harm - Related Data Home Medications Medication Instructions Recorded Confirmed Calcium/Magnesium/Zinc/Vitamin D3 1 tab PO TID PRN 05/01/24 05/01/24 334/134/5mg Hyoscyamine Sulfate [Levsin] 0.125 mg PO QID PRN 05/01/24 05/01/24 Multivitamins, Thera [Multivitamin 1 tab PO DAILY 05/01/24 05/01/24 (formulary)] Thiamine [Vitamin B-1] 100 mg PO DAILY 05/01/24 05/09/24 guaiFENesin [guaiFENesin Oral 200 mg PO Q4H PRN 05/01/24 05/09/24 Solution] Previous Rx's Medication Instructions Recorded Atorvastatin [Lipitor] 10 mg PO HS 15 Days #15 tab 05/15/24 Nicotine 14Mg/24Hr Patch [Habitrol] 1 patch TRANSDERM DAILY 15 Days 05/15/24 #15 patch Paliperidone IM [Invega Sustenna] 234 mg IM Q28D 1 Days #1 ml 05/15/24 Paliperidone [Invega] 3 mg PO HS 15 Days #45 tab 05/15/24 Prazosin [Minipress] 3 mg PO HS 15 Days #45 cap 05/15/24 Sertraline [Zoloft] 100 mg PO DAILY 15 Days #15 tab 05/15/24 lisinopriL [Zestril] 5 mg PO DAILY 15 Days #15 tab 05/15/24 traZODone HCL [Desyrel] 50 mg PO HS 15 Days #15 tab 05/15/24 Allergies Allergy/AdvReac Type Severity Reaction Status Date / Time sulfamethoxazole Allergy Itching Verified 05/09/24 02:32 [From Bactrim] tramadol Allergy Unknown Verified 05/09/24 02:32 trimethoprim [From Bactrim] Allergy Itching Verified 05/09/24 02:32 fluphenazine [From Prolixin] AdvReac knees get Verified 05/09/24 02:32 shaky fluvoxamine maleate AdvReac Nausea & Verified 05/09/24 02:32 [From Luvox] Vomiting gabapentin AdvReac Addiction Verified 05/09/24 02:32 issues Review of Systems ROS Statement: Those systems with pertinent positive or pertinent negative responses have been documented in the HPI. ROS Other: All systems not noted in ROS Statement are negative. Past Medical History Additional Past Medical History / Comment(s): Schizophrenia, PTSD, generalized anxiety disorder, major depressive disorder with psychosis, ADHD, cutting, hepatitis C History of Any Multi-Drug Resistant Organisms: None Reported Past Surgical History: No Surgical Hx Reported Past Anesthesia/Blood Transfusion Reactions: No Reported Reaction Past Psychological History: ADD/ADHD, Anxiety, Depression, PTSD, Schizophrenia Smoking Status: Current every day smoker Past Alcohol Use History: None Reported Past Drug Use History: Marijuana, Methamphetamine, Opiates, Prescription Drug Abuse - Past Family History Father Family Medical History: No Reported History Mother Family Medical History: Liver Disease Additional Family Medical History / Comment(s): Patient is single and does not have any children. General Exam Limitations: no limitations General appearance: alert, in no apparent distress Head exam: Present: atraumatic, normocephalic, normal inspection Eye exam: Present: normal appearance, PERRL, EOMI. Absent: scleral icterus, conjunctival injection, periorbital swelling ENT exam: Present: normal exam, mucous membranes moist Neck exam: Present: normal inspection. Absent: tenderness, meningismus, lymphadenopathy Respiratory exam: Present: normal lung sounds bilaterally. Absent: respiratory distress, wheezes, rales, rhonchi, stridor Cardiovascular Exam: Present: regular rate, normal rhythm, normal heart sounds. Absent: systolic murmur, diastolic murmur, rubs, gallop, clicks GI/Abdominal exam: Present: soft, normal bowel sounds. Absent: distended, tenderness, guarding, rebound, rigid Extremities exam: Present: normal inspection, full ROM, normal capillary refill. Absent: tenderness, pedal edema, joint swelling, calf tenderness Back exam: Present: normal inspection Neurological exam: Present: alert, oriented X3, CN II-XII intact Psychiatric exam: Present: normal affect, normal mood Skin exam: Present: warm, dry, intact, normal color. Absent: rash Course Vital Signs 05/08/24 05/08/24 05/09/24 22:04 23:29 00:00 Temperature 98.2 F Pulse Rate 144 H 101 H 79 Respiratory 18 18 16 Rate Blood Pressure 133/83 126/80 122/84 O2 Sat by Pulse 98 98 98 Oximetry 05/09/24 02:46 Temperature 98.7 F Pulse Rate 84 Respiratory 20 Rate Blood Pressure 142/76 O2 Sat by Pulse 96 Oximetry - Reevaluation(s) Reevaluation #1: 05/09/24 01:40 Records reviewed Reevaluation #2: 05/09/24 01:40 Medically cleared for psychiatric evaluation Reevaluation #3: Was pt. sent in by a medical professional or institution (, PA, TRIP FOLLOWER, urgent care, hospital, or usp...) When possible be specific @ -no Did you speak to anyone other than the patient for history (EMS, parent, family, police, friend...)? What history was obtained from this source @ -no Did you review nursing and triage notes (agree or disagree)? Why? @ -agree Are old charts reviewed (outside hosp., previous admission, EMS record, old EKG, old radiological studies, urgent care reports/EKG's, usp records)? Report findings @ -yes Differential Diagnosis (chest pain, altered mental status, abdominal pain women, abdominal pain men, vaginal bleeding, weakness, fever, dyspnea, syncope, headache, dizziness, GI bleed, back pain, seizure, CVA, palpatations, mental health, musculoskeletal)? @ -prior EKG interpreted by me (3pts min.). @ -no X-rays interpreted by me (1pt min.). @ -no CT interpreted by me (1pt min.). @ -no U/S interpreted by me (1pt. min.). @ -no What testing was considered but not performed or refused? (CT, X-rays, U/S, labs)? Why? @ -none What meds were considered but not given or refused? Why? @ -none Did you discuss the management of the patient with other professionals ( professionals i.e. , PA, TRIP FOLLOWER, lab, RT, psych nurse, social media director, medical geneticist, teacher, hydrographical technical officer, case maker)? Give summary @ -no Was smoking cessation discussed for >3mins.? @ -no Was critical care preformed (if so, how long)? @ -no Were there social determinants of health that impacted care today? How? (Homelessness, low income, unemployed, alcoholism, drug addiction, transportation, low edu. Level, literacy, decrease access to med. care, care home, rehab)? @ -none Was there de-escalation of care discussed even if they declined (Discuss DNR or withdrawal of care, Hospice)? DNR status @ -no What co-morbidities impacted this encounter? (DM, HTN, Smoking, COPD, CAD, Cancer, CVA, ARF, Chemo, Hep., AIDS, mental health diagnosis, sleep apnea, morbid obesity)? @ -none Was patient admitted / discharged? Hospital course, mention meds given and route, prescriptions, significant lab abnormalities, going to OR and other pertinent info. @ - 33 male will be transferred for inpatient psychiatric evaluation and treatment Transferred for inpatient psychiatric treatment Undiagnosed new problem with uncertain prognosis? @ -no Drug Therapy requiring intensive monitoring for toxicity (Heparin, Nitro, Insulin, Cardizem)? @ -no Were any procedures done? @ -no Diagnosis/symptom? @ -Major depression and psychosis Acute, or Chronic, or Acute on Chronic? @ -Acute Uncomplicated (without systemic symptoms) or Complicated (systemic symptoms)? @ -Complicated Side effects of treatment? @ -no Exacerbation, Progression, or Severe Exacerbation? @ -exacerbation Poses a threat to life or bodily function? How? (Chest pain, USA, NV, pneumonia, PE, COPD, DKA, ARF, appy, cholecystitis, CVA, Diverticulitis, Homicidal, Suicidal, threat to staff... and all critical care pts) @ -yes with significant psychiatric illness Reevaluation #4: Differential Mental Health Depression, anxiety, bipolar, psychosis, schizophrenia, borderline personality, situational depression, adjustment disorder, behavioral disorder, brain tumor, malingering, substance abuse, encephalopathy, medication reaction, dementia, hypothyroidism, degenerative neurologic disorder, lupus.... This is not meant to be all-inclusive list Medical Decision Making - Medical Decision Making 33 male will be transferred for inpatient psychiatric evaluation and treatment - Lab Data Result diagrams: 05/09/24 09:13 05/09/24 09:13 Lab Results 05/09/24 Range/Units 01:34 Influenza Type A (PCR) Not Detected (Not Detectd) Influenza Type B (PCR) Not Detected (Not Detectd) RSV (PCR) Not Detected (Not Detectd) SARS-CoV-2 (PCR) Not Detected (Not Detectd) Disposition Clinical Impression: Suicidal ideation, Depression, Schizoaffective disorder, bipolar type, PTSD (post-traumatic stress disorder) Disposition: TRANSFER TO PSYCH HOSP/UNIT Condition: Stable Is patient prescribed a controlled substance at d/c from ED?: No
[2024-05-09] MEDS ORDERED: MAGNESIUM HYDROXIDE 2,400 MG/30 ML CUP PO PRN (02:25)
[2024-05-09] MEDS ORDERED: LORazepam 2 MG/ML INJ IM PRN (02:25)
[2024-05-09] MEDS ORDERED: HALOPERIDOL LACTATE 5 MG/ML 1 ML VIAL IM PRN (02:25)
[2024-05-09] MEDS ORDERED: MAG HYDROX/AL HYDROX/SIMETH 355 ML BOTTLE PO PRN (02:25)
[2024-05-09] MEDS ORDERED: haloperidoL 5 MG TAB PO PRN (02:25)
[2024-05-09] MEDS: LORazepam 1 MG TAB PO PRN (02:58)
[2024-05-09 09:38] LABS: Basophils % (A) 0 %; Eosinophils # (A) 0.2 k/uL (0-0.7); Eosinophils % (A) 3 %; HCT 45.8 % (39.0-53.0); HGB 13.9 gm/dL (13.0-17.5); Hypochromasia Slight; Lymphocytes % (A) 21 %; MCH 27.7 pg (25.0-35.0); MCHC 30.3 g/dL (31.0-37.0); MCV 91.4 fL (80.0-100.0); Mean Platelet Volume 10.1; Monocytes # (A) 0.4 k/uL (0-1.0); Monocytes % (A) 5 %; Neutrophils # (A) 6.4 k/uL (1.3-7.7); Neutrophils % (A) 70 %; Platelet Count 250 k/uL (150-450); RBC 5.01 m/uL (4.30-5.90); RDW 15.3 % (11.5-15.5); WBC 9.2 k/uL (3.8-10.6)
[2024-05-09 10:05] LABS: ALT 32 U/L (4-49); AST 33 U/L (17-59); African American GFR (CKD) >90 (>60 ml/min/1.73 sqM); Albumin 3.9 g/dL (3.5-5.0); Alkaline Phosphatase 53 U/L (38-126); Anion Gap 4 mmol/L; Bilirubin, Delta 0.3 mg/dL (0.0-0.2); Bilirubin,Unconjugated 0.2 mg/dL (0.0-1.1); Blood Urea Nitrogen 10 mg/dL (9-20); Calcium 9.4 mg/dL (8.4-10.2); Carbon Dioxide 25 mmol/L (22-30); Chloride 110 mmol/L (98-107); Glucose 86 mg/dL (74-99); Non-African American GFR(CKD) >90 (>60 ml/min/1.73 sqM); Potassium 4.7 mmol/L (3.5-5.1); Sodium 139 mmol/L (137-145); Total Bilirubin 0.5 mg/dL (0.2-1.3); Total Protein 6.3 g/dL (6.3-8.2)
[2024-05-09] MEDS: NICOTINE 14MG/24HR PATCH TRANSDERM SCH (10:12)
--- NOTE | 2024-05-09 13:03 | P.HP ---
Psychiatric H&P - . H&P Date: 05/09/24 History & Physical: Allergies Allergy/AdvReac Type Severity Reaction Status Date / Time sulfamethoxazole Allergy Itching Verified 05/09/24 02:32 [From Bactrim] tramadol Allergy Unknown Verified 05/09/24 02:32 trimethoprim [From Bactrim] Allergy Itching Verified 05/09/24 02:32 fluphenazine [From Prolixin] AdvReac knees get Verified 05/09/24 02:32 shaky fluvoxamine maleate AdvReac Nausea & Verified 05/09/24 02:32 [From Luvox] Vomiting gabapentin AdvReac Addiction Verified 05/09/24 02:32 issues Vital Signs Temp 97.0 F L 05/09/24 12:03 Pulse 103 H 05/09/24 12:03 Resp 20 05/09/24 12:03 BP 111/77 05/09/24 12:03 Pulse Ox 98 05/09/24 12:03 FiO2 Intake & Output 05/08/24 05/09/24 05/09/24 18:59 06:59 18:59 Weight 81.363 kg Laboratory Last Values WBC 9.2 k/uL (3.8-10.6) 05/09/24 09:13 RBC 5.01 m/uL (4.30-5.90) 05/09/24 09:13 Hgb 13.9 gm/dL (13.0-17.5) 05/09/24 09:13 Hct 45.8 % (39.0-53.0) 05/09/24 09:13 MCV 91.4 fL (80.0-100.0) 05/09/24 09:13 MCH 27.7 pg (25.0-35.0) 05/09/24 09:13 MCHC 30.3 g/dL (31.0-37.0) L 05/09/24 09:13 RDW 15.3 % (11.5-15.5) 05/09/24 09:13 Plt Count 250 k/uL (150-450) 05/09/24 09:13 MPV 10.1 05/09/24 09:13 Neutrophils % 70 % 05/09/24 09:13 Lymphocytes % 21 % 05/09/24 09:13 Monocytes % 5 % 05/09/24 09:13 Eosinophils % 3 % 05/09/24 09:13 Basophils % 0 % 05/09/24 09:13 Neutrophils # 6.4 k/uL (1.3-7.7) 05/09/24 09:13 Lymphocytes # 2.0 k/uL (1.0-4.8) 05/09/24 09:13 Monocytes # 0.4 k/uL (0-1.0) 05/09/24 09:13 Eosinophils # 0.2 k/uL (0-0.7) 05/09/24 09:13 Basophils # 0.0 k/uL (0-0.2) 05/09/24 09:13 Hypochromasia Slight 05/09/24 09:13 Sodium 139 mmol/L (137-145) 05/09/24 09:13 Potassium 4.7 mmol/L (3.5-5.1) 05/09/24 09:13 Chloride 110 mmol/L (98-107) H 05/09/24 09:13 Carbon Dioxide 25 mmol/L (22-30) 05/09/24 09:13 Anion Gap 4 mmol/L 05/09/24 09:13 BUN 10 mg/dL (9-20) 05/09/24 09:13 Creatinine 0.84 mg/dL (0.66-1.25) 05/09/24 09:13 Est GFR (CKD-EPI)AfAm >90 (>60 ml/min/1.73 sqM) 05/09/24 09:13 Est GFR (CKD-EPI)NonAf >90 (>60 ml/min/1.73 sqM) 05/09/24 09:13 Glucose 86 mg/dL (74-99) 05/09/24 09:13 Calcium 9.4 mg/dL (8.4-10.2) 05/09/24 09:13 Total Bilirubin 0.5 mg/dL (0.2-1.3) 05/09/24 09:13 Conjugated Bilirubin 0.0 mg/dL (0.0-0.3) 05/09/24 09:13 Unconjugated Bilirubin 0.2 mg/dL (0.0-1.1) 05/09/24 09:13 Delta Bilirubin 0.3 mg/dL (0.0-0.2) H 05/09/24 09:13 AST 33 U/L (17-59) 05/09/24 09:13 ALT 32 U/L (4-49) 05/09/24 09:13 Alkaline Phosphatase 53 U/L (38-126) 05/09/24 09:13 Total Protein 6.3 g/dL (6.3-8.2) 05/09/24 09:13 Albumin 3.9 g/dL (3.5-5.0) 05/09/24 09:13 TSH 1.570 mIU/L (0.465-4.680) 05/09/24 09:13 Influenza Type A (PCR) Not Detected (Not Detectd) 05/09/24 01:34 Influenza Type B (PCR) Not Detected (Not Detectd) 05/09/24 01:34 RSV (PCR) Not Detected (Not Detectd) 05/09/24 01:34 SARS-CoV-2 (PCR) Not Detected (Not Detectd) 05/09/24 01:34 05/09/24 12:58 IDENTIFYING DATA: Patient is a single, unemployed, 33-year-old male who is presenting with psychosis and substance use History of Present Illness: Patient was brought in by police petitioned by his mother for treatment for mental health. As per mother and the social workers note, the patient has deep morbid thoughts about murder and rape. He told her that he would like her raped and murdered. He tells her that he is going to kill her. He believes he is the brother of Ashok. He believes is not Kwadwo but Jered. He always thinks he is being raped. During this evaluation, the patient did not volunteer any information except stating that one side of the brain has psychosis and the other side has the drugs. He was irritable, hostile, and left abruptly to go to his room. Onleading questions he denied feeling depressed or anxious. He stated, I am mad, I dont think I need to be here, I am being bullied by the police and my mother. The patient got hostile and left the room. He was irritable, agitated and provoked easily. He was impulsive, unpredictable, and appeared aggressive. Past Psychiatric History: The patient has h/o Schizophrenia, and PTSD. He has h/o multiple psychiatric hospitalizations. His last hospitalization in November,. He has no h/o suicidal or homicidal ideation or behavior in the past. Past Medical History: Hepatitis C Allergies: Sulfa drugs, as per chart Substance Abuse: The patient has history of substance abuse. He admitted to Marijuana. Opioids. He smokes: I pack of cigarettes a day. Social and Family History Patient was born and raised in [place]. He is currently on disability. He cate es by himself. He reports that he only completed up to the third grade. The patient is on disability. No significat work history. He lives in his own apartment. He is never . Family History: None reported MSE: Alert and attentive. Orientation times three Dressed and Groomed: Disheveled. Hostile, irritable and un-cooperative. Psychomotor Activity: Normal. Speech: Normal in tone, quality, and quantity. Mood: Angry and upset. Affect: Irritable. SI or HI: None. Perceptual disturbance: No overt hallucinatory behavior noted. Thought Content: Paranoid ideations. No other delusional thinking noted.; Thought Process: Normal. Cognition: Intact Judgment and Insight: Poor AIMS: Normal Labs: Available labs reviewed. IMPRESSIONS: Schizoaffective disorder, depressive type Possible Substance induced psychosis H/O Polysubstance abuse. Plan and Recommendations: Continue current Medications. Monitor MS and side effects of medications and adjust medications accordingly. Provide supportive psychotherapy and psychoeducation. The patient provided psychoeducation. Te patient provided with substance abuse counselling and advised to attend AA/NA Smoke cessation therapy. The patient to attend varner Mil[facility]. CBC with Diff, CMP, TSH, Lipid Profile, HbA1c, EKG. Ordered. Medication Consent with explanation of risk/benefits and side effects: Explained and obtained.
[2024-05-09] MEDS: lisinopriL 5 MG TAB PO SCH (14:22)
[2024-05-09 15:34] LABS: Chol/HDL Ratio 3.85 Ratio; LDL Cholesterol,Calculated 105.1 mg/dL (0.0-131.0); VLDL Calculation 17.02 mg/dL (5.00-40.00)
--- NOTE | 2024-05-09 15:53 | P.MDCNMH ---
<Angelito Andre - Last Filed: 05/09/24 15:52> History of Present Illness H&P Date: 05/09/24 History of Presenting Illness: Patient is a 33-year-old male with a past medical history of hypertension, hyper lipidemia, polysubstance abuse and IVDA with methamphetamines, opiates, and marijuana, schizophrenia, hepatitis C, ADHD, anxiety, depression, and PTSD. He is currently admitted to mental health unit and we are consulted for evaluation and completion of medical H&P. Patient was seen and fully evaluated on mental health unit. Patient was asked repeatedly to be evaluated and upon agreeing was evaluated voluntarily in screening room. Patient denies having any complaints at this time states I do not need to be here. He denies any alcohol or drug use, does admit to smoking a pack of cigarettes daily, denies having any pain or complaints. Patient denies having any visual, auditory, or tactile hallucinations. He denies having any headache, lightheadedness, dizziness, chest pain, palpitations, shortness of breath, cough or congestion, or experiencing any numbness/tingling/weakness in his extremities. Patient repeatedly stating I do not need to be here. Review of systems: Pertinent positives and negatives as discussed in HPI, a complete review of systems was performed and all other systems are negative. Physical exam: Vital signs reviewed and stable. General: Nontoxic, no distress and appears stated age. Derm: Skin warm and dry, normal coloration for ethnicity. Head: Atraumatic, normocephalic and symmetric. Eyes: EOMs intact, no lid lag, and anicteric sclera Mouth: no lip lesions, mucus membranes moist Cardiovascular: regular rate and rhythm with normal S1S2, no murmur, positive posterior tibial pulses bilaterally, and cap refill < 2 seconds. Lungs: Respirations even, regular, and unlabored on room air. Lungs CTA bilaterally, no rhonchi, no rales, no wheezing, and no accessory muscle usage. Abdominal: soft, nontender to palpation, no guarding, no appreciable organomegaly Ext: Movement intact and appears symmetrical. Patient ambulatory with a steady gait.. No gross muscle atrophy, no edema, no contractures Neuro/psych: Patient withdrawn and appears slightly agitated. Assessment and Plan of Care: Hypertension - Patient to resume lisinopril 5 mg daily. Hyperlipidemia -Continue atorvastatin 10 mg nightly. Nicotine dependence - Continue nicotine patch 14 mg daily. History of IVDA and substance abuse methamphetamines and opiates -Urine drug screen ordered and awaiting to be collected. -Patient currently denies any use of drug or alcohol at this time. Psychosis Schizoaffective disorder - Management per primary admitting psychiatry team. Data and imaging reviewed: - Labs reviewed. CBC unremarkable. BMP showing mild hyperchloremia with chl oride of 110 otherwise normal findings. Liver profile showing elevated delta bilirubin at 0.3 otherwise normal findings. Lipid profile unremarkable. TSH normal findings at 1.570. - Vital signs reviewed. Blood pressure 111/77, heart rate 103, respiratory rate 20, temp 97.0 F, and SpO2 of 90% on room air. Thank you for allowing us to participate in the care of this pleasant patient. Do not hesitate to contact us with questions. Someone can be reached from the [facility] hospitalist group all hours of the day at [phone] or via [employer]. Patient was seen independently by Nurse Practitioner. This document was prepared using [employer] dictation software. Please allow for errors in energy systems engineer while rare they do occur. Past Medical History Additional Past Medical History / Comment(s): Schizophrenia, PTSD, generalized a nxiety disorder, major depressive disorder with psychosis, ADHD, cutting, hepatitis C History of Any Multi-Drug Resistant Organisms: None Reported Past Surgical History: No Surgical Hx Reported Past Anesthesia/Blood Transfusion Reactions: No Reported Reaction Past Psychological History: ADD/ADHD, Anxiety, Depression, PTSD, Schizophrenia Smoking Status: Current every day smoker Past Alcohol Use History: None Reported Additional Past Alcohol Use History / Comment(s): Patient states he uses marijuana daily. Past Drug Use History: Marijuana, Methamphetamine, Opiates, Prescription Drug Abuse Additional Drug Use History / Comment(s): patient reports he's been "clean since being on probation," pt has to provide random UA weekly. - Past Family History Father Family Medical History: No Reported History Mother Family Medical History: Liver Disease Additional Family Medical History / Comment(s): Patient is single and does not have any children. Medications and Allergies Home Medications Medication Instructions Recorded Confirmed Type Atorvastatin [Lipitor] 10 mg PO HS 30 Days #30 tab 12/07/23 05/01/24 Rx Melatonin 6 mg PO HS 30 Days #60 tab 12/07/23 05/01/24 Rx Nicotine 21Mg/24Hr Patch [Habitrol] 1 patch TRANSDERM DAILY 14 Days 12/07/23 05/01/24 Rx #14 patch Prazosin [Minipress] 3 mg PO HS 30 Days #90 cap 12/07/23 05/09/24 Rx QUEtiapine [SEROquel] 50 mg PO HS 30 Days #30 tab 12/07/23 05/09/24 Rx lisinopriL [Zestril] 5 mg PO DAILY 30 Days #30 tab 12/07/23 05/09/24 Rx Acetaminophen Tab [Tylenol] 650 mg PO Q4H 05/01/24 05/01/24 History Calcium/Magnesium/Zinc/Vitamin D3 1 tab PO TID PRN 05/01/24 05/01/24 History 334/134/5mg Chlorpheniramine Maleate 4 mg PO Q4H PRN 05/01/24 05/01/24 History [Chlor-Trimeton] Hyoscyamine Sulfate [Levsin] 0.125 mg PO QID PRN 05/01/24 05/01/24 History Ibuprofen [Motrin Ib] 600 mg PO Q6H PRN 05/01/24 05/01/24 History Loperamide [Imodium] 4 mg PO QID PRN 05/01/24 05/01/24 History Multivitamins, Thera [Multivitamin 1 tab PO DAILY 05/01/24 05/01/24 History (formulary)] Mylanta 30 ml PO Q4H PRN 05/01/24 05/01/24 History Paliperidone IM [Invega Sustenna] 234 mg IM Q28D 05/01/24 05/09/24 History Sertraline [Zoloft] 100 mg PO DAILY 05/01/24 05/09/24 History Thiamine [Vitamin B-1] 100 mg PO DAILY 05/01/24 05/09/24 History busPIRone HCl [Buspar] 10 mg PO TID 05/01/24 05/09/24 History guaiFENesin [guaiFENesin Oral 200 mg PO Q4H PRN 05/01/24 05/09/24 History Solution] ondansetron HCL [Zofran] 8 mg PO Q6H PRN 05/01/24 05/09/24 History Allergies Allergy/AdvReac Type Severity Reaction Status Date / Time sulfamethoxazole Allergy Itching Verified 05/09/24 02:32 [From Bactrim] tramadol Allergy Unknown Verified 05/09/24 02:32 trimethoprim [From Bactrim] Allergy Itching Verified 05/09/24 02:32 fluphenazine [From Prolixin] AdvReac knees get Verified 05/09/24 02:32 shaky fluvoxamine maleate AdvReac Nausea & Verified 05/09/24 02:32 [From Luvox] Vomiting gabapentin AdvReac Addiction Verified 05/09/24 02:32 issues Physical Exam Vitals: Vital Signs Temp Pulse Pulse Resp BP BP Pulse Ox 05/09/24 12:03 97.0 F L 103 H 20 111/77 98 05/09/24 03:06 97.8 F 99 15 151/83 98 05/09/24 02:46 98.7 F 84 20 142/76 96 05/09/24 00:00 79 16 122/84 98 05/08/24 23:29 101 H 18 126/80 98 05/08/24 22:04 98.2 F 144 H 18 133/83 98 Intake and Output 05/08/24 05/09/24 05/09/24 22:59 06:59 14:59 Other: Weight 86.183 kg 81.363 kg Cranial Nerve Examination - Cranial Nerves Cranial Nerve II- Optic: Intact Cranial Nerve III- Oculomotor: Intact Cranial Nerve IV- Trochlear: Intact Cranial Nerve V- Trigeminal: Intact Cranial Nerve - Abducens: Intact Cranial Nerve VII- Facial: Intact Cranial Nerve VIII- Auditory: Intact Cranial Nerve IX- Glossopharyngeal: Intact Cranial Nerve X- Vagus: Intact Cranial Nerve XI- Accessory: Intact Cranial Nerve XII- Hypoglossal: Intact Results CBC & Chem 7: 05/09/24 09:13 05/09/24 09:13 Labs: Abnormal Lab Results - Last 24 Hours (Table) 05/09/24 05/09/24 Range/Units 09:13 09:13 MCHC 30.3 L (31.0-37.0) g/dL Chloride 110 H (98-107) mmol/L Delta Bilirubin 0.3 H (0.0-0.2) mg/dL <Nkechi Chavis - Last Filed: 05/10/24 10:51> History of Present Illness I reviewed the documentation as provided by the EMILY above, who is the original author of this note. I agree with the documented assessment and plan, with the following changes: none Physical Exam Vitals: Vital Signs Temp Pulse Resp BP Pulse Ox 05/10/24 08:01 92 16 161/69 05/10/24 06:38 97.3 F L 105 H 16 119/80 98 05/09/24 12:03 97.0 F L 103 H 20 111/77 98 Results CBC & Chem 7: 05/09/24 09:13 05/09/24 09:13 Labs: Abnormal Lab Results - Last 24 Hours (Table) 05/09/24 Range/Units 20:00 Ur Amphetamine Screen Positive A (Negative) U Cannabinoids Screen Positive A (Negative)
[2024-05-09 21:02] LABS: Appearance,Urine Clear (Clear); Bilirubin,Urine Negative (Negative); Blood,Urine Negative (Negative); Color,Urine Colorless; Glucose,Urine (UA) Negative (Negative); Ketones,Urine Negative (Negative); Leukocyte Esterase,Urine Negative (Negative); Nitrite,Urine Negative (Negative); Protein,Urine Negative (Negative); Specific Gravity,Urine 1.006 (1.001-1.035); Urobilinogen,Urine <2.0 mg/dL (<2.0)
[2024-05-09] MEDS: ATORVASTATIN 10 MG TAB PO SCH (21:43)
[2024-05-09] MEDS: PRAZOSIN 1 MG CAP PO SCH (21:43)
[2024-05-10 03:19] LABS: Urine Alcohol Negative (Negative); Urine Barbiturate Negative (Negative); Urine Cocaine Negative (Negative); Urine Methadone Negative (Negative); Urine Opiates Negative (Negative); Urine Phencyclidine Negative (Negative)
[2024-05-10] MEDS: SERTRALINE 50 MG TAB PO SCH (07:59)
--- NOTE | 2024-05-10 21:37 | P.PN ---
Progress Note - Text Progress Note Date: 05/10/24 Follow-up Mediation Review Chief Complaint: I am doing better Subjective: The patient had no specific complaints. He noted that he has a court date on the Wednesday. He wanted to know that if he be will discharged by then. The patient was told that it will depend how he is doing. The patient did not say anything. He was told that he was admitted after a petition and a cert. but this was dropped after he signed the voluntary consent form. He reported slight restlessness and feeling of tightness. He was wondering if he having side effects of medications. The patient was explained that this could be due to the Invega shot he received on 05/08/24. He was provided support and told to inform nurse if it gets worse. He would be evaluated by me again tomorrow. The patient has not been attending the groups. The interaction with staff and peers is limited.. The patient is compliant with treatment recommendations. Leading questions: The patient denied Depression and Anxiety. Denied SI or HI. Denied symptoms consistent with psychosis Sleep and Appetite: fair Change in family/ living/job/financial/daily routine: No change. Change in medical condition: No change. Change in medications: No change. Side effects from Medications: None. Allergies: No change. Objective- MSE: Alert and attentive. Orientation times three. Dressed and Groomed: Appropriately. Pleasant and cooperative. Psychomotor Activity: Normal. Speech: Normal in tone, quality, and quantity. Mood: Fine. Affect: Appropriate to the mood. SI or HI: None. Perceptual disturbance: None. Thought Content: No paranoia or other delusional thinking noted. Thought Process: Normal. Cognition: Intact Judgment and Insight: Poor AIMS: Normal. Labs: No new labs. Diagnosis: No change. Plan and Recommendations: Continue current Medications. Monitor MS and side effects of medications and adjust medications accordingly. Provide supportive psychotherapy. The patient provided psychoeducation and advised The patient provided Substance abuse counseling. Smoke cessation therapy. The patient to attend varner activities. CBC with Diff, CMP, TSH, Lipid Profile, HbA1c, EKG, ordered Medication Consent with explanation of risk/benefits and side effects: Explained and obtained.
--- NOTE | 2024-05-11 16:31 | P.PN ---
Progress Note - Text Progress Note Date: 05/11/24 [facility]- Mediation Review Chief Complaint: I am doing better Subjective: The patient had no specific complaints. He reported feeling alright. The patient did not report any side effects today. He has not had any restlessness or tightness. The patient has not been attending the groups. The interaction with staff and peers is limited. The patient is compliant with treatment recommendations. Leading questions: The patient denied Depression and Anxiety. Denied SI or HI. Denied symptoms consistent with psychosis Sleep and Appetite: fair Change in family/ living/job/financial/daily routine: No change. Change in medical condition: No change. Change in medications: No change. Side effects from Medications: None. Allergies: No change. Objective- MSE: Alert and attentive. Orientation times three. Dressed and Groomed: Appropriately. Pleasant and cooperative. Psychomotor Activity: Normal. Speech: Normal in tone, quality, and quantity. Mood: Fine. Affect: Appropriate to the mood. SI or HI: None. Perceptual disturbance: None. Thought Content: No paranoia or other delusional thinking noted. Thought Process: Normal. Cognition: Intact Judgment and Insight: Poor AIMS: Normal. Labs: No new labs. Diagnosis: No change. Plan and Recommendations: Continue current Medications. Monitor MS and side effects of medications and adjust medications accordingly. Provide supportive psychotherapy. The patient provided psychoeducation and advised The patient provided Substance abuse counseling. Smoke cessation therapy. The patient to attend varner activities. Medication Consent with explanation of risk/benefits and side effects: Explained and obtained.
[2024-05-12] MEDS: ACETAMINOPHEN TAB 325 MG TAB PO PRN (10:36)
--- NOTE | 2024-05-12 17:02 | P.PN ---
Progress Note - Text Progress Note Date: 05/12/24 Follow-up Mediation Review Chief Complaint: I am finer Subjective: The patient noted that he did not sleep very good but later said it is ok, I am fine. The patient was asked why he does not stay home and stays on streets and uses drugs. Discussed the bad effects of drugs and tellez he pays for using drugs. The patient noted that he does not know but it may be depression. He was calm and held a goal directed conversation. No side effects reported. The patient has not been attending the groups. The interaction with staff and peers is limited. The patient is compliant with treatment recommendations. Leading questions: The patient denied Depression and Anxiety. Denied SI or HI. Denied symptoms consistent with psychosis Sleep and Appetite: fair Change in family/ living/job/financial/daily routine: The patient will be going to nursing home after discharge? Change in medical condition: No change. Change in medications: No change. Side effects from Medications: None. Allergies: No change. Objective- MSE: Alert and attentive. Orientation times three. Dressed and Groomed: Appropriately. Pleasant and cooperative. Psychomotor Activity: Normal. Speech: Normal in tone, quality, and quantity. Mood: Fine. Affect: Appropriate to the mood. SI or HI: None. Perceptual disturbance: None. Thought Content: No paranoia or other delusional thinking noted. Thought Process: Normal. Cognition: Intact Judgment and Insight: Poor AIMS: Normal. Labs: No new labs. Diagnosis: No change. Plan and Recommendations: Continue current Medications. Monitor MS and side effects of medications and adjust medications accordingly. Provide supportive psychotherapy. The patient provided psychoeducation and advised The patient provided Substance abuse counseling. Smoke cessation therapy. The patient to attend varner activities. Medication Consent with explanation of risk/benefits and side effects: Explained and obtained.
--- NOTE | 2024-05-13 12:17 | P.PN ---
Progress Note - Text Progress Note Date: 05/13/24 Interval History: Patient was seen wandering the hallways and was directable and agreeable to amita laird with manual writer in the office. Patient reports recalling this provider from meeting in the past. He says his mood is currently "sad ". He is agreeable with an increase in Zoloft. when asked what might be contributing to this, he is unable to expand further but admits that substance use has impacted his health heavily. He also admits to worsening in symptoms due to medication noncompliance. Discussed his prior history with Invega and says he found it helpful. He was agreeable with being restarted on this as well. Reports fair sleep but appears to be subdued and isolated. Discussed behavioral activation. At this time patient denies any suicidal or homicidal ideations, intent or plan. Patient denies any auditory, visual hallucinations and denies any paranoia or delusions. Patient denies any side effects from the medications and has been compliant with meds. Mental Status Exam: Alert and attentive. Orientation times three. Dressed and Groomed: Appropriately. Pleasant and cooperative. Psychomotor Activity: Normal. Speech: Normal in tone, quality, and quantity. low volume Mood: "sad" Affect: mood congruent SI or HI: None. Perceptual disturbance: None. Thought Content: No paranoia or other delusional thinking noted. Thought Process: Normal. Cognition: Intact Judgment and Insight: Poor judgment, improving insight Assessment schizoaffective disorder, depressive type Hx Methamphetamine-induced psychotic disorder Plan: -Patient continues to meet criteria for inpatient psychiatric admission for symptom stabilization and safety. -Medications: increase Zoloft 100 mg daily, continue prazosin 3 mg at bedtime, continue trazodone 50 mg at bedtime as needed for sleep, start Invega 3 mg at bedtime for psychosis -When necessary Ativan and Haldol for agitation/aggression. -NRT - nicotine patch -SW on board for discharge planning. Encouraged the patient to participate in milieu.
[2024-05-13] MEDS: IBUPROFEN 600 MG TAB PO PRN (15:26)
[2024-05-13] MEDS: PALIPERIDONE 3 MG TAB.ER.24 PO SCH (20:21)
[2024-05-13] MEDS: traZODone HCL 50 MG TAB PO PRN (20:22)
[2024-05-14] MEDS: SERTRALINE 100 MG TAB PO SCH (07:55)
[2024-05-14] MEDS: hydrOXYzine pamoate 25 MG CAP PO PRN (12:44)
[2024-05-14] MEDS: LORazepam 1 MG TAB PO PRN (14:43)
--- NOTE | 2024-05-14 14:57 | P.PN ---
Progress Note - Text Progress Note Date: 05/14/24 Interval History: Patient was seen wandering the hallways and was directable and agreeable to sp eitan with policy writer in the office. He says his mood is currently "sound of mind". However, he states that he is anxious at times. He displays fair insight and states that likely his history of substance use is contributing to his anxiety. Patient is more future oriented. He states that he has slept significantly better without any nightmares at bedtime. He reports tolerating the medications well. He endorses good appetite and energy during the daytime. At this time patient denies any suicidal or homicidal ideations, intent or plan. Patient denies any auditory, visual hallucinations and denies any paranoia or delusions. Patient denies any side effects from the medications and has been compliant with meds. Mental Status Exam: Alert and attentive. Orientation times three. Dressed and Groomed: Appropriately. Pleasant and cooperative. Psychomotor Activity: Normal. Speech: Normal in tone, quality, and quantity. low volume Mood: "sound of mind" Affect: mood congruent SI or HI: None. Perceptual disturbance: None. Thought Content: No paranoia or other delusional thinking noted. Thought Process: Normal. Cognition: Intact Judgment and Insight: Poor judgment, improving insight Assessment schizoaffective disorder, depressive type Hx Methamphetamine-induced psychotic disorder Plan: -Patient continues to meet criteria for inpatient psychiatric admission for symptom stabilization and safety. -Medications: Zoloft 100 mg daily, continue prazosin 3 mg at bedtime, continue trazodone 50 mg at bedtime as needed for sleep, Invega 3 mg at bedtime for psychosis -When necessary Ativan and Haldol for agitation/aggression. -NRT - nicotine patch -SW on board for discharge planning. Encouraged the patient to participate in milieu.
[2024-05-15 07:19] VITALS: BP 123/85; PULSE 133; RESP 16; TEMP 97.4
[2024-05-15] MEDS ORDERED: traZODone HCL 50 MG TAB PO SCH (21:00)
--- NOTE | 2024-05-15 21:22 | P.DS ---
Providers Date of admission: 05/09/24 02:22 Expected date of discharge: 05/15/24 Attending physician: Edward Butt MD Consults: 05/09/24 02:25 Consult Physician Routine Consulting Provider: Xin Flowers Consult Reason/Comments: For H & P for Medical Follow Up Do you want consulting provider notified?: Yes Primary care physician: Stated None - Discharge Diagnosis(es) (1) Schizoaffective disorder, depressive type Status: Acute Priority: High (2) Substance-induced psychotic disorder Status: Acute Priority: High (3) Polysubstance abuse Status: Acute Priority: Medium Hospital Course: Discharge Summary HPI: IDENTIFYING DATA: Patient is a single, unemployed, 33-year-old male who is presenting with psychosis and substance use History of Present Illness: Patient was brought in by police petitioned by his mother for treatment for mental health. As per mother and the social workers note, the patient has deep morbid thoughts about murder and rape. He told her that he would like her raped and murdered. He tells her that he is going to kill her. He believes he is the brother of Ashok. He believes is not Kwadwo but Jered. He always thinks he is being raped. During this evaluation, the patient did not volunteer any information except stating that one side of the brain has psychosis and the other side has the drugs. He was irritable, hostile, and left abruptly to go to his room. Onleading questions he denied feeling depressed or anxious. He stated, I am mad, I dont think I need to be here, I am being bullied by the police and my mother. The patient got hostile and left the room. He was irritable, agitated and provoked easily. He was impulsive, unpredictable, and appeared aggressive. Past Psychiatric History: The patient has h/o Schizophrenia, and PTSD. He has h/o multiple psychiatric hospitalizations. His last hospitalization in November,. He has no h/o suicidal or homicidal ideation or behavior in the past. Past Medical History: Hepatitis C Allergies: Sulfa drugs, as per chart Substance Abuse: The patient has history of substance abuse. He admitted to Marijuana. Opioids. He smokes: I pack of cigarettes a day. Hospital Course: After admission, the patient was involved in pharmacotherapy, varner milieu, and individual psychodynamic psychotherapy. The patient was started on his home mediations. Initially, the patient was not improving but as soon as the stimulants were out of his system, he showed rapid recovery with reinstating his medications. He also received his Invega LA 234 mg on 05/08/2024.The dose was titrated to obtain the desire effects. The patient tolerated medications well without any side effects. The patient was also involved in varner activities. The patient attended the groups and participated well. The patient interacted with peers and staff well. The patient slowly started showing improvement. The hospital course was uneventful. The patient symptoms of depression, suicidal and homicidal ideations abated. The psychosis improved. The patient was stable to be discharged to out-patient care. The patient did not have any guns or weapons in possession at home. MSE: Alert and attentive. Orientation times three Dressed and Groomed: Disheveled. Hostile, irritable and un-cooperative. Psychomotor Activity: Normal. Speech: Normal in tone, quality, and quantity. Mood: Angry and upset. Affect: Irritable. SI or HI: None. Perceptual disturbance: No overt hallucinatory behavior noted. Thought Content: Paranoid ideations. No other delusional thinking noted.; Thought Process: Normal. Cognition: Intact Judgment and Insight: Poor AIMS: Normal Diagnosis: Schizoaffective disorder, depressive type Possible Substance induced psychosis H/O Polysubstance abuse. Plan: The patient to be discharged today. The patient has attained good improvement since admission. He is stable to be followed as an outpatient. The patient is not suicidal or Homicidal. He does not pose any harm to self or others. The patient remains at a greater risk of self-harm or harm to others than general population on a chronic basis due to psychiatric illness and substance abuse. The patient will continue taking following medication post discharge. The importance of medication compliance and maintaining regular appointments at psychiatric out-pt and PCP clinic was explained and encouraged. The patient was also advised to seek alcohol counseling and attend AA/NA meetings. The understood and agreed with the recommendations. child welfare social worker to arrange for and conduct family meeting to ensure safety upon discharge and answer any questions. The dialysis social worker to arrange for patients follow-up appointments at [facility] for psychiatric care along with follow-up with PCP. The patient provided psychoeducation. Advised to call 911 or go to nearest ED or call this hospital in case of acute worsening of symptomatology, severe side effects or having suicidal, homicidal thoughts and feeling unsafe at home. Patient Condition at Discharge: Stable Plan - Discharge Summary Discharge Rx Participant: Yes New Discharge Prescriptions: New Paliperidone [Invega] 3 mg PO HS 15 Days #45 tab traZODone HCL [Desyrel] 50 mg PO HS 15 Days #15 tab Nicotine 14Mg/24Hr Patch [Habitrol] 1 patch TRANSDERM DAILY 15 Days #15 patch Continue Multivitamins, Thera [Multivitamin (formulary)] 1 tab PO DAILY Thiamine [Vitamin B-1] 100 mg PO DAILY Hyoscyamine Sulfate [Levsin] 0.125 mg PO QID PRN PRN Reason: Gi Upset Atorvastatin [Lipitor] 10 mg PO HS 15 Days #15 tab Prazosin [Minipress] 3 mg PO HS 15 Days #45 cap Calcium/Magnesium/Zinc/Vitamin D3 334/134/5mg 1 tab PO TID PRN PRN Reason: Muscle Cramps guaiFENesin [guaiFENesin Oral Solution] 200 mg PO Q4H PRN PRN Reason: Cough Paliperidone IM [Invega Sustenna] 234 mg IM Q28D 1 Days #1 ml lisinopriL [Zestril] 5 mg PO DAILY 15 Days #15 tab Sertraline [Zoloft] 100 mg PO DAILY 15 Days #15 tab Discontinued Nicotine 21Mg/24Hr Patch [Habitrol] 1 patch TRANSDERM DAILY 14 Days #14 patch QUEtiapine [SEROquel] 50 mg PO HS 30 Days #30 tab Acetaminophen Tab [Tylenol] 650 mg PO Q4H Chlorpheniramine Maleate [Chlor-Trimeton] 4 mg PO Q4H PRN PRN Reason: Allergy Symptoms Ibuprofen [Motrin Ib] 600 mg PO Q6H PRN PRN Reason: Pain Mylanta 30 ml PO Q4H PRN PRN Reason: Gi Upset ondansetron HCL [Zofran] 8 mg PO Q6H PRN PRN Reason: Nausea Melatonin 6 mg PO HS 30 Days #60 tab busPIRone HCl [Buspar] 10 mg PO TID Loperamide [Imodium] 4 mg PO QID PRN PRN Reason: Diarrhea Discharge Medication List Calcium/Magnesium/Zinc/Vitamin D3 334/134/5mg 1 tab PO TID PRN 05/01/24 [History] Hyoscyamine Sulfate [Levsin] 0.125 mg PO QID PRN 05/01/24 [History] Multivitamins, Thera [Multivitamin (formulary)] 1 tab PO DAILY 05/01/24 [History] Thiamine [Vitamin B-1] 100 mg PO DAILY 05/01/24 [History] guaiFENesin [guaiFENesin Oral Solution] 200 mg PO Q4H PRN 05/01/24 [History] Atorvastatin [Lipitor] 10 mg PO HS 15 Days #15 tab 05/15/24 [Rx] Nicotine 14Mg/24Hr Patch [Habitrol] 1 patch TRANSDERM DAILY 15 Days #15 patch 05/15/24 [Rx] Paliperidone IM [Invega Sustenna] 234 mg IM Q28D 1 Days #1 ml 05/15/24 [Rx] Paliperidone [Invega] 3 mg PO HS 15 Days #45 tab 05/15/24 [Rx] Prazosin [Minipress] 3 mg PO HS 15 Days #45 cap 05/15/24 [Rx] Sertraline [Zoloft] 100 mg PO DAILY 15 Days #15 tab 05/15/24 [Rx] lisinopriL [Zestril] 5 mg PO DAILY 15 Days #15 tab 05/15/24 [Rx] traZODone HCL [Desyrel] 50 mg PO HS 15 Days #15 tab 05/15/24 [Rx] Follow up Appointment(s)/Referral(s): [facility] [Outside] - 05/16/24 12:30 pm (05/16/2024 12:30PM - 1:30PM MINH MONROY 05-23-24 at 1:[address] Goss 05/25/2024 8:30AM - 9:00AM AKUA AYALA ) [facility] [NON-STAFF] - 1-2 days Patient Instructions/Handouts: How to Stop Smoking (DC), Schizoaffective Disorder (DC) Activity/Diet/Wound Care/Special Instructions: Avoid the use of street drugs and alcohol. Take all medications as prescribed. When you are in need of refills on your medications, please contact your medical provider and/or outpatient psychiatrist/provider to have this done. Please go to your scheduled outpatient appointment for aftercare treatment. If symptoms return or become worse, call the crisis line at and/or go to the nearest emergency room for evaluation. National Suicide Hotline 988 Discharge Disposition: HOME SELF-CARE
== END 2024-05-15 15:05 | disposition home or self-care (01) | DRG 750 ==
LOC: EC 21:59 → 3MHU 05-09 02:22
PROVIDERS: ADMIT Psychiatry & Neurology Psychiatry; ATTEND Psychiatry & Neurology Psychiatry
DX: F25.1 Schizoaffective disorder, depressive type (principal); E87.8 Other disorders of electrolyte and fluid balance, not elsewhere classified; R45.851 Suicidal ideations; Z91.148 Patient's other noncompliance with medication regimen for other reason; B19.20 Unspecified viral hepatitis C without hepatic coma; F12.159 Cannabis abuse with psychotic disorder, unspecified; F15.159 Other stimulant abuse with stimulant-induced psychotic disorder, unspecified; I10 Essential (primary) hypertension; Z11.52 Encounter for screening for COVID-19; Z28.310 Unvaccinated for COVID-19; F90.9 Attention-deficit hyperactivity disorder, unspecified type; F41.9 Anxiety disorder, unspecified; E78.5 Hyperlipidemia, unspecified; F43.10 Post-traumatic stress disorder, unspecified; F17.210 Nicotine dependence, cigarettes, uncomplicated; Z71.6 Tobacco abuse counseling; Z79.899 Other long term (current) drug therapy; Z71.51 Drug abuse counseling and surveillance of drug abuser; Z56.0 Unemployment, unspecified; Z59.82 Transportation insecurity; Z88.1 Allergy status to other antibiotic agents; Z88.5 Allergy status to narcotic agent; Z88.2 Allergy status to sulfonamides; Z88.8 Allergy status to other drugs, medicaments and biological substances
CPT/HCPCS: 80053; 80061; 80306; 81003; 82075; 82248; 83036; 84443; 85025; 87636; 99285